=== PATIENT | male | born 1940 | race Caucasian/White ===

== ENCOUNTER → 2018-01-18 10:53 | Outpatient (CLI) | payer MEDICARE, SELFPAY ==
[2018-01-18 11:33] VITALS: PULSE 74; PULSE 78; PULSE 83; PULSE 89; PULSE 90; PULSE 93; PULSE 95; O2SAT 85; O2SAT 91; O2SAT 93; O2SAT 94; O2SAT 95; O2SAT 96; O2SAT 98
--- NOTE | 2018-01-18 11:36 | CPS ---
Patient came in on 3 lpm pulse dose from home. Patient's SpO2 88% on room air. Placed patient back on 3 lpm pulse dose for testing. By the 2nd minute SpO2 85%, changed patient to 3 lpm continuous flow on our tank. Patient walked the rest of the test on 3 lpm continuous flow with out desaturations less than 90% but was just as short of breath by the end of the test.
--- NOTE | 2018-01-18 16:13 | WT_ITS ---
PSN 6 Minute Walk Test - 6 Minute Walk Test 6 Minute Walk Test: 6 Minute Walk Test PSN:6-Minute Walk Test Start: 01/18/18 11: 32 Freq: Status: Active Protocol: [id number] Document 01/18/18 11:33 KULWANT (Rec: 01/18/18 11:47 KULWANT [id number]) 6 Minute Walk Test Date Performed 01/18/18 Time Performed 11:00 Height 5 ft 9 in Weight: 81.647 kg Weight in Pounds 180.[address]: Fredo Dyson Assistive device used: None Pre-test Oxygen Flow Rate (L/min) (L/min) 3 Oxygen Delivery Method Nasal Cannula Pulse Ox (%) 94 Pulse Rate (60-100 beats/min) 74 Dyspnea Leonie Scale (0-10) 0 Exertion Leonie Scale (6-20) 6 1st minute Oxygen Flow Rate (L/min) (L/min) 3 Oxygen Delivery Method Nasal Cannula Pulse Ox (%) 91 Pulse Rate (60-100 beats/min) 90 2nd minute Oxygen Flow Rate (L/min) (L/min) 3 Oxygen Delivery Method Nasal Cannula Pulse Ox (%) 85 Pulse Rate (60-100 beats/min) 95 Dyspnea Leonie Scale (0-10) 4 3rd minute Oxygen Flow Rate (L/min) (L/min) 3 Oxygen Delivery Method Nasal Cannula Pulse Ox (%) 96 Pulse Rate (60-100 beats/min) 83 4th minute Oxygen Flow Rate (L/min) (L/min) 3 Oxygen Delivery Method Nasal Cannula Pulse Ox (%) 94 Pulse Rate (60-100 beats/min) 89 5th minute Oxygen Flow Rate (L/min) (L/min) 3 Oxygen Delivery Method Nasal Cannula Pulse Ox (%) 93 Pulse Rate (60-100 beats/min) 89 Number of Rests Taken 1 6th minute Oxygen Flow Rate (L/min) (L/min) 3 Oxygen Delivery Method Nasal Cannula Pulse Ox (%) 95 Pulse Rate (60-100 beats/min) 93 Dyspnea Leonie Scale (0-10) 4 Exertion Leonie Scale (6-20) 14 Post-test Oxygen Flow Rate (L/min) (L/min) 3 Oxygen Delivery Method Nasal Cannula Pulse Ox (%) 98 Pulse Rate (60-100 beats/min) 78 Full Laps Walked 10 Partial Lap, Number of Tiles Walked 0 Total Distance Walked (ft) 590 01/18/18 11:36 Cardiopulmonary Services by Iram Wilde Patient came in on 3 lpm pulse dose from home. Patient's SpO2 88% on room air. Placed patient back on 3 lpm pulse dose for testing. By the 2nd minute SpO2 85% , changed patient to 3 lpm continuous flow on our tank. Patient walked the rest of the test on 3 lpm continuous flow with out desaturations less than 90% but was just as short of breath by the end of the test. Initialized on 01/18/18 11:36 - END OF NOTE - Interpretation Interpretation: The patient was noted to be 88% on room air. The patient was then placed on 3 L pulse dose nasal cannula oxygen and saturations improved to 94%. The patient then ambulated for 2 minutes prior to desaturating to 85%. Patient was placed on 3 L/min continuous oxygen and saturations improved to 95%. The patient did take one break, but traveled a total of 590 feet over the course of 6 minutes. These findings are consistent with a respiratory limitation exercise tolerance. - Recommendations Recommendations: Patient requires 3 L pulse dose at rest, but should be using 3 L continuous flow with any exertion.
== END ==
PROVIDERS: Family Provider Physician Assistant; PCP Physician Assistant; Visit Provider Internal Medicine Critical Care Medicine
DX: J44.9 Chronic obstructive pulmonary disease, unspecified (principal); J96.11 Chronic respiratory failure with hypoxia; F17.200 Nicotine dependence, unspecified, uncomplicated
CPT/HCPCS: 94618

== ENCOUNTER → 2018-02-02 09:54 | Outpatient (CLI) | payer MEDICARE, SELFPAY ==
--- NOTE | 2018-02-02 12:02 | PFTCOMP_ITS ---
COMPLETE PULMONARY FUNCTION TEST INTERPRETATION Brief HPI: Patient is a 77 year old male, currently under the care of Dr. Dyson, who presents to [facility] for complete pulmonary function tests secondary to diagnosis of COPD. Respiratory therapist reports good effort and reproducible results. Respiratory therapist was concerned the patient was in an acute exacerbation. Interpretation: Forced expiration spirometry shows a very severe large airways obstructive ventilatory defect with an FEV1 of 32% predicted. There is no significant bronchodilator response by strict ATS criteria. Spirograms are of good quality and plateau slowly, indicating slowly emptying areas of the lungs. The respiratory flow volume loop shows decreased expiratory flow rates at all lung volumes consistent with airway obstruction. Lung volumes by body plethysmography show an elevated total lung capacity at 7.29 L, 126% predicted. FRC and RV are elevated out of proportion. Lung volume measurements are consistent with hyperinflation and air-trapping. Diffusion capacity by carbon monoxide is decreased at 38% predicted. The airway resistance is elevated. No previous pulmonary function tests were available for review. Impression: Irreversible very severe large airways obstructive ventilatory defect resulting in air trapping with hyperinflation and a symmetric reduction diffusing capacity , consistent with the diagnosis of advanced COPD
== END ==
PROVIDERS: Family Provider Physician Assistant; PCP Physician Assistant; Visit Provider Internal Medicine Critical Care Medicine
DX: J44.9 Chronic obstructive pulmonary disease, unspecified (principal); J96.11 Chronic respiratory failure with hypoxia; F17.200 Nicotine dependence, unspecified, uncomplicated
CPT/HCPCS: 94060; 94726; 94729

== ENCOUNTER → 2018-05-11 12:40 | Outpatient (CLI) | payer MEDICARE, SELFPAY ==
--- NOTE | 2018-05-11 12:42 | CT_ITS ---
STUDY: CT CHEST WITHOUT CONTRAST REASON FOR EXAM: Male, 78 years old. Bronchiectasis RADIATION DOSAGE (If Supplied By Facility): CTDIvol = ( 12.00 ) mGy, DLP = ( 381.93 ) mGycm TECHNIQUE: Transaxial imaging was performed without the administration of intravenous contrast material. Individualized dose optimization techniques were used for this CT. COMPARISON: None. FINDINGS: : TRACHEA, THYROID, ESOPHAGUS: No tracheomalacia,stricture or wall thickening. Thyroid and esophagus are normal CARDIOVASCULAR SYSTEM:The thoracic aorta is normal with no aneurysm, dissection or developmental anomalies. The pulmonary trunk and the left and right pulmonary arteries and their lobar and segmental branches do not show any abnormal and persistent filling defects in them. There is therefore no evidence of pulmonary embolism. The heart is normal. There are no venous anomalies ROHAN AND LYMPH NODES: No hilar masses and no mediastinal, hilar, axillary or supraclavicular adenopathy LUNGS, LOW-ATTENUATION: There is a mixture of paraseptal and centrilobular emphysematous changes LUNGS, HIGH ATTENUATION: No nodules/masses, ground glass opacities/consolidations or increased interstitial markings. 6 nodules in the right lung base and 4 in the left lung base. The largest is 1.8 cm in diameter evidence of scarring in the right upper lobe and both lower LUNGS, MOSAIC/CRAZY PAVING: Not evident PLEURA AND CHEST WALL: No plural effusions, pneumothoraces,rib fractures or any osteolytic/osteoblastic changes . There are calcified pleural plaques bilaterally The soft tissue chest wall including the breasts are normal UPPER ABDOMEN: Unremarkable . CT/Chest without Contrast IMPRESSION: Bilateral calcified pleural plaque. Bilateral areas of scarring and fibrosis in the lung bases. Bilateral nodular densities. The constellation of these findings suggest either asbestosis or asbestos exposure Electronically Signed: Leeroy Buchanan, at 7:10 EDT Tel , Service support ,
== END ==
PROVIDERS: Family Provider Physician Assistant; PCP Physician Assistant; Visit Provider Nurse Practitioner Acute Care
DX: J47.9 Bronchiectasis, uncomplicated (principal)
CPT/HCPCS: 71250

== ENCOUNTER → 2018-05-25 11:47 | Outpatient (CLI) | payer MEDICARE, SELFPAY | PROVIDERS: Family Provider Physician Assistant; PCP Physician Assistant; Visit Provider Nurse Practitioner Acute Care | DX: J47.9 Bronchiectasis, uncomplicated (principal) | CPT/HCPCS: 71046 ==

== ENCOUNTER → 2018-06-02 09:09 | Outpatient (CLI) | payer MEDICARE, SELFPAY | PROVIDERS: Family Provider Physician Assistant; PCP Physician Assistant; Visit Provider Specialist | DX: T84.031A Mechanical loosening of internal left hip prosthetic joint, initial encounter (principal) | CPT/HCPCS: 20610; 77002; 87015; 87070; 87075; 87101; 87116; 87205; 87206; Q9967 ==

== ENCOUNTER 2018-06-04 12:12 | Emergency (ER) | payer MEDICARE, SELFPAY ==
[2018-06-04] VITALS (9 sets, daily range): BP systolic 131–186; BP diastolic 73–84; PULSE 73–79; RESP 14–25; TEMP 36.7; O2SAT 93–96; BMI 25.9
[2018-06-04 12:47] LABS: Absolute Lymphocyte Count 1.13 X10^3/ul (0.83-4.51); Basophil# 0.03 X10^3/uL; Basophil% 0.2 % (0-1); Eosinophil# 0.22 X10^3/uL; Eosinophils% 1.3 % (0-5); Hematocrit 43.9 % (40-54); Hemoglobin 14.4 g/dl (13.0-16.5); Lymphocyte # 1.13 X10^3/ul (4.0); Lymphocyte % 6.9 % (19-41); Mean Corp Hgb Conc 32.8 g/gl (32-36); Mean Corpuscular Hgb 29.6 pg (27.0-32.0); Mean Corpuscular Volume 90.3 fL (80-94); Mean Platelet Vol. 9.4 fl (6.2-12.0); Monocyte# 0.85 X10^3/uL; Monocyte% 5.2 % (0-10); Neutrophil # 13.97 X10^3/uL (2.7-7.7); Neutrophil % 85.4 % (47-70); Platelet Count 278 K/mm3 (150-450); RBC Distribution Width CV 14.2 % (11.6-14.6); RBC Distribution Width SD 46.1 fl (35.1-43.9); Red Blood Count 4.86 M/mm3 (4.6-6.2); White Blood Count 16.4 K/mm3 (4.4-11.0)
--- NOTE | 2018-06-04 12:48 | ED.DCSUM_ITS ---
- ER Visit Summary Date of Service: 06/04/18 Chief Complaint: Shortness of breath History of Present Illness: The patient is a 78 M history of COPD and hypertension. No prior DVT or PE. No risk factors. No hemoptysis. No pleuritic chest pain. Patient states for the last week while it has been hot outside he has had increasing shortness of breath. He is normally on 3 L nasal cannula O2 at home he increase that before. Said his shortness of breath is fine while asleep and is worse when he is up and around during the day. He describes the chest heaviness that has been constant now for several days. No cardiac history. No recent travel, surgery or mobilization. No leg pain or swelling. No hemoptysis. This is similar to his prior COPD flare ups. Physical Examination: Older male vital signs are stable. On 4 L he is 96% he is normally on 3 L. H EENT exam unremarkable neck nontender. Lungs coarse breath sounds throughout. Inspiratory wheezing. Prolonged expiratory phase. Heart regular rhythm no murmur rate about 70. Abdomen soft nontender normal bowel sounds no peritoneal signs. Moving all 4 extremities. Calves nontender without edema or cords. Neurologically is awake and alert. No focal motor deficits. Test Results: Chest x-ray chronic changes consistent with COPD no acute process. Read both by myself the radiologist. EKG sinus rhythm rate is 70 no acute abnormality. CBC shows a 16,000 white count but is currently on his own. Hemoglobin 14. Electrolytes unremarkable normal gap and creatinine. Troponin normal. Emergency Department Course and Treatment: Treated with multiple aerosols and IV Solu-Medrol. Treatment Plan: Repeat exam patient is doing better. He and I discussed inpatient versus outpatient. He much preferred to be discharged to home. He will be continued on prednisone for another week. Continue his aerosols and follow-up with his accounting recruiter next week. Disposition: Charge Impression: Acute exacerbation COPD This note was generated with [employer] dictation software. It may contain incorrect words, spelling, and punctuation that were not noted in review of the chart prior to signing ED Disposition - Plan for ED Patient: Chief Complaint: Shortness of Breath Referrals: Annabella Munoz PA [Primary Care Provider] -
[2018-06-04 12:52] LABS: POSITIVE COUNT NO; POSITIVE DIFFERENTIAL NO; POSITIVE MORPHOLOGY NO
[2018-06-04] MEDS: Albuterol 2.5 MG/3 ML VIAL.NEB. INHALATION ×2 (12:52→12:53)
[2018-06-04] MEDS: Ipratropium/Albuterol Sulfate 3 ML AMPUL.NEB INHALATION (12:52)
[2018-06-04] MEDS: MethylPREDNISolone 125 MG/2 ML Vial IV (12:56)
[2018-06-04 13:00] LABS: Anion Gap 8 (5-15); BUN 22 mg/dL (7-18); BUN/Creat Ratio 20.4 RATIO (10-20); Calcium,Total 8.8 mg/dL (8.5-10.1); Chloride 102 mmol/L (98-107); Creatinine, Serum 1.08 mg/dL (0.70-1.30); EST Glomerular Filtration Rate 71 mL/min (>60); Est Glom Filt Rate - Afr Amer 86 mL/min (>60); Estimated Creatinine Clearance 58.19 ml/min; Glucose 112 mg/dL (74-106); Potassium 4.2 mmol/L (3.5-5.1); Sodium Level 141 mmol/L (136-145)
--- NOTE | 2018-06-04 15:16 | ED.DEP ---
ED Disposition - Plan for ED Patient: Disposition: Home or Assisted Living Chief Complaint: Shortness of Breath Instructions: ED COPD Flare Prescriptions: Prednisone [Deltasone] 40 mg PO DAILY 7 Days tab Referrals: Annabella Munoz PA [Primary Care Provider] - Additional Instructions: Continue daily prednisone. Continue daily aerosols. Follow-up with your tray delivery aide next week. Return to ER feeling worse.
--- NOTE | 2018-06-04 15:19 | DCINST.ED_ITS ---
ED Disposition - Plan for ED Patient: Disposition: Home or Assisted Living Chief Complaint: Shortness of Breath Instructions: ED COPD Flare Prescriptions: Prednisone [Deltasone] 40 mg PO DAILY 7 Days tab Referrals: Annabella Munoz PA [Primary Care Provider] - Additional Instructions: Continue daily prednisone. Continue daily aerosols. Follow-up with your business planning analyst next week. Return to ER feeling worse.
--- NOTE | 2018-06-04 15:38 | ED.RN ---
pt given written and verbal discharge instructions and home going prescriptions. pt and spouse verbalizes understanding of instructions. iv d/c and covered with 2x2 gauze dressing and paper tape, pressure applied to site with pt being on blood thinner. this rn assisted pt n dressing and placed in wheelchair. pt wheeled to family vehicle in wheelchair.
== END 2018-06-04 15:38 | disposition home or self-care (01) ==
PROVIDERS: Emergency Provider Emergency Medicine; Family Provider Physician Assistant; PCP Physician Assistant
DX: J44.1 Chronic obstructive pulmonary disease with (acute) exacerbation (principal); I10 Essential (primary) hypertension; Z72.0 Tobacco use
CPT/HCPCS: 71045; 80048; 84484; 85025; 93005; 94640; 96374; 99285; A4216

== ENCOUNTER → 2018-06-25 14:10 | Outpatient (CLI) | payer MEDICARE, SELFPAY ==
--- NOTE | 2018-06-25 14:12 | ECHOD_ITS ---
Reason For Study: dyspnea/SOB Procedure This was a 2D Doppler, Color Flow transthoracic echocardiogram. The study was technically difficult. Due to COPD, poor parasternal accoutic windows. Exam performed in department. Left Ventricle Normal LV size. Left ventricular systolic function is normal. The estimated ejection fraction is 55 %. Stage 1 diastolic dysfunction. No regional wall motion abnormalities noted. Right Ventricle Normal RV size. Normal systolic function. Atria Normal left atrium. Normal right atrium. Mitral Valve Normal mitral valve. Mild (1+) eccentric mitral valve insufficiency. Tricuspid Valve Normal tricuspid valve. Mild (1+) tricuspid valve insufficiency. Pulmonary artery systolic pressure is 35 mmHg. Aortic Valve Normal aortic valve. Trisinus/trileaflet aortic valve. Pulmonic Valve The pulmonic valve is not well visualized. Great Vessels Normal aortic root. The pulmonary artery is normal size. Normal inferior vena cava. Pericardium/Pleural No pericardial effusion. MMode/2D Measurements & Calculations LVIDd: 4.9 cm IVSd: 0.88 cm Ao root diam: 3.7 cm LVIDs: 3.7 cm LVPWd: 0.92 cm LA dimension: 3.5 cm RVDd: 3.6 cm FS: 23.7 % LAV(MOD-bp): 59.9 ml LA A4 area: 19.1 cm2 RA A4 area: 15.8 cm2 LAV(MOD-bp) Indexed: 31.2 ml/m2 LAV(MOD-sp2): 61.0 ml LAV(MOD-sp4): 52.9 ml Doppler Measurements & Calculations MV E max philip: 57.3 cm/sec Lat Peak E' Philip: 7.1 cm/sec Med Peak E' Philip: 6.5 cm/sec MV A max philip: 81.2 cm/sec E/E' lat: 8.1 E/E' med: 8.9 MV E/A: 0.71 Ao V2 max: 122.2 cm/sec LV V1 max: 75.3 cm/sec PA V2 max: 83.4 cm/sec Ao max P.0 mmHg LV V1 max P.3 mmHg PI end-d philip: 131.6 cm/sec TR max philip: 282.1 cm/sec TR max P.8 mmHg Interpretation Summary Normal LV size. Left ventricular systolic function is normal. The estimated ejection fraction is 55 %. Stage 1 diastolic dysfunction. Mild (1+) eccentric mitral valve insufficiency. The study was technically difficult. The study was technically limited. Ordering Physician: Wendie Broderick Referring Physician: Wendie Broderick Performed By: Lynda Collins, MANDOCS, RVT
== END ==
PROVIDERS: Family Provider Physician Assistant; PCP Physician Assistant; Visit Provider Nurse Practitioner Acute Care
DX: R06.00 Dyspnea, unspecified (principal)
CPT/HCPCS: 93306

== ENCOUNTER → 2018-08-23 08:21 | Outpatient (CLI) | payer MEDICARE, SELFPAY ==
--- NOTE | 2018-08-23 05:51 | PET_ITS ---
EXAMINATION: FDG PET CT INDICATIONS: A 78-year-old male with reported history of pulmonary nodularity. COMPARISON EXAMINATION: CT of the chest report dated 05/11/18. INDEX LESION SIZE SUV INTERPRETATION Left lower hemithorax, left lower lobe 1.6 Quantitative criteria for viable neoplasm are not fulfilled, sequential radiologic investigation recommended NON-INDEX LESION SIZE SUV INTERPRETATION Left proximal clavicle 3.0 May represent previous trauma-fracture, correlation with plain film radiography recommended Left scapula 1.4 Quantitative criteria for viable neoplasm are not fulfilled TECHNIQUE: Following the intravenous administration of 16.37 mCi of F-18 deoxyglucose via the right antecubital fossa, multiplanar image acquisitions of the neck, chest, abdomen and pelvis to level of mid thigh, obtained at one hour post radiopharmaceutical administration contemporaneously interpreted with the current CT of the neck, chest, abdomen and pelvis to level of mid thigh, dated 08/23/[address] of the chest report dated 05/11/18 reveal: SERUM GLUCOSE LEVEL: 84 mg/dl. HEIGHT: 68 inches. WEIGHT: 173 lbs. FINDINGS: 1. Mild increased glucose concentration is defined in the left lower posterior lung field, left lower lobe, heterogeneous in presentation generating a calculated maximum standard uptake value of 1.6. 2. Normal physiologic distribution of the radiopharmaceutical is apparent in the hepatic (2.9) and splenic parenchyma, both renal units, bladder and visualized intestinal tract. There is uniform distribution of the radiopharmaceutical concentration defined in the visualized cerebellar hemispheres and cerebral cortical structures.? Diffuse intestinal tract activity is noted throughout all four quadrants of the abdominal-pelvic retroperitoneum, mesentery consistent with normal physiologic distribution of the radiopharmaceutical. Prominent glucose metabolism is defined in the periprosthetic soft tissues at the level of the right and left hip arthroplasties. There is an increase in glucose metabolism manifest in the periosseous soft tissues in the upper midline posterior chest wall and bilateral perioccipital soft tissue musculature most consistent with probable localized muscle tension artifact. Mild increased FDG concentration is demonstrated in the left upper posterolateral chest wall contiguous to the left scapula rendering a calculated maximum standard uptake value of 1.4. Asymmetric increased glucose concentration appears evident in the cortical aspect of left proximal clavicle, which may represent previous trauma-fracture. The calculated standard uptake value is 3.0. Pertinent CT findings are as follows. CHEST: Emphysematous change is noted in the bilateral upper-lower lung zones. There are multiple calcified pleural plaques demonstrated in the right and left hemithorax without evidence of facilitated glucose metabolism. Additional parenchymal densities noted in the right and left hemithorax demonstrate no evidence of quantitatively significant increased glucose metabolism. Atherosclerotic calcification is defined in the thoracic aorta without evidence of dilatation, aneurysm formation. ABDOMEN AND PELVIS: Atherosclerotic calcification is defined in the abdominal aorta without evidence of dilatation, aneurysm formation. Abdominal-pelvic arterial calcification is observed. A fat-containing right inguinal hernia is noted. Bilateral inguinal soft tissue densities are non-glucose avid. The gallbladder appears surgically absent. Colonic diverticulosis is defined without evidence of diverticulitis. SKELETAL: Degenerative changes defined in the cervical, thoracic and lumbar spine demonstrate no evidence for glucose hypermetabolism. 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 PET/PET/CT Tumor Base -Thigh Init IMPRESSION: 1. NEGATIVE EXAMINATION. There is no definitive quantitative scintigraphic evidence of viable neoplasm. 2. Facilitated glucose concentration observed in the left lower posterior lung field, left lower lobe does not fulfill quantitative criteria for viable neoplasm. (Hess et al, Annals of Internal Medicine, 138:724, 2003). 3. Metabolic and/or anatomic stability may be ensured in the left hemithorax pulmonary parenchymal abnormality with repeat FDG PET study and/or CT of the thorax in three months. (Xiu, Journal of Nuclear Medicine 45:88, P2004. Nicko, Seminars in Thoracic and Cardiovascular Surgery 14:292, 2002). 4. Enhanced glucose concentration visualized in the left scapula does not fulfill quantitative criteria for viable osseous neoplasm. (Nolvia et al, Clinical Nuclear Medicine 29:161, 2004). 5. Increased FDG uptake noted in the left proximal clavicle may represent previous trauma-fracture. Plain film radiography correlation may be of benefit for further evaluation. Electronic Signature Luis Vasquez D.O. Electronically Signed: Luis Vasquez DO at 23:28 EST Tel , Service support ,
== END ==
PROVIDERS: Family Provider Physician Assistant; PCP Physician Assistant; Referring Provider Internal Medicine Critical Care Medicine; Visit Provider Internal Medicine Critical Care Medicine
DX: R91.1 Solitary pulmonary nodule (principal)
CPT/HCPCS: 78815; A9552

== ENCOUNTER → 2018-11-30 14:33 | Outpatient (CLI) | payer MEDICARE, SELFPAY ==
[2018-09-13 10:39] VITALS: BMI 25.5
--- NOTE | 2018-11-30 14:38 | RAD_ITS ---
STUDY: X-RAY - RIGHT HAND REASON FOR EXAM: Male, 78 years old. Inflammatory polyarthropathy. TECHNIQUE: 3 view(s) of the hand. COMPARISON: X-ray left hand. FINDINGS: There is generalized bone demineralization. There is severe degenerative arthrosis of the radial-navicular articulation. There is suggestion of nonunion of an old ulnar styloid fracture.. Normal distal radioulnar joint. 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 Contours of the lunate bone are not a well-defined and may be deformed or posteriorly subluxed. There appears to be proximal displacement of the capitate bone. There is severe degenerative arthrosis involving multiple articulations, Normal carpometacarpal articulation of the thumb. Normal second through fifth carpometacarpal joints. Normal metacarpi. There is degenerative arthrosis of the first metacarpophalangeal (MCP) joint, with medial subluxation.. There is degenerative arthrosis of the interphalangeal joint of the thumb with articular joint space narrowing. Normal proximal and distal phalanges of the thumb. There is degenerative arthrosis of the second and third metacarpophalangeal joints with anterior subluxation. Normal proximal and distal interphalangeal joints of the second through fifth fingers. Normal phalanges of the second through fifth fingers. The soft tissue structures are unremarkable. RAD/Hand Min 3 Views IMPRESSION: Degenerative joint disease of the hand and wrist, as described above. There is evidence for chronic post-traumatic changes in the wrist as well. Electronically Signed: Osiel Parikh MD at 3:32 EST , Service support ,
--- NOTE | 2018-11-30 14:38 | RAD_ITS ---
STUDY: X-RAY - LEFT HAND REASON FOR EXAM: Male, 78 years old. Inflammatory polyarthropathy. TECHNIQUE: 3 view(s) of the hand. COMPARISON: X-ray right hand. FINDINGS: There is joint space narrowing of the radiocarpal articulation consistent with degenerative arthrosis. Normal distal radioulnar joint. Normal visualized carpal bones. Severe degenerative arthrosis of the navicular-multangular joints. There is degenerative arthrosis of the carpometacarpal (CMC) articulation of the thumb. Normal second through fifth carpometacarpal joints. Normal metacarpi. There is severe degenerative arthrosis of the first metacarpophalangeal (MCP) joint, with posterior medial subluxation. There is degenerative arthrosis of the interphalangeal joint of the thumb with articular joint space narrowing. Normal proximal and distal phalanges of the thumb. There is degenerative arthrosis of the second and third metacarpophalangeal (MCP) joints, with anterior subluxations. Normal proximal and distal interphalangeal joints of the second through fifth fingers. Normal phalanges of the second through fifth fingers. The soft tissue structures are unremarkable. RAD/Hand Min 3 Views IMPRESSION: Degenerative changes, as above. Electronically Signed: Osiel Parikh MD at 3:11 EST , Service support ,
[2018-11-30 17:43] LABS: Absolute Neutrophil Count 10.1 X10^3/uL (2.0-7.7); Basophil# 0.04 X10^3/uL; Basophil% 0.3 % (0-1); Eosinophil# 0.15 X10^3/uL; Eosinophils% 1.1 % (0-5); Hematocrit 41.5 % (40-54); Hemoglobin 13.5 g/dl (13.0-16.5); Lymphocyte % 15.7 % (19-41); Mean Corp Hgb Conc 32.5 g/gl (32-36); Mean Corpuscular Hgb 30.1 pg (27.0-32.0); Mean Corpuscular Volume 92.6 fL (80-94); Mean Platelet Vol. 9.9 fl (6.2-12.0); Monocyte# 0.89 X10^3/uL; Monocyte% 6.7 % (0-10); Neutrophil # 10.09 X10^3/uL (2.7-7.7); Neutrophil % 75.4 % (47-70); POSITIVE COUNT NO; POSITIVE DIFFERENTIAL NO; POSITIVE MORPHOLOGY NO; Platelet Count 272 K/mm3 (150-450); RBC Distribution Width CV 14.3 % (11.6-14.6); RBC Distribution Width SD 47.3 fl (35.1-43.9); Red Blood Count 4.48 M/mm3 (4.6-6.2); White Blood Count 13.4 K/mm3 (4.4-11.0)
[2018-11-30 17:57] LABS: ALB/GLOB Ratio 0.9 RATIO (0.9-2.4); AST(SGOT) 32 U/L (15-37); Alanine Aminotransfer ALT/SGPT 72 U/L (16-61); Albumin, Serum 3.5 g/dL (3.2-5.0); Alkaline Phosphatase 118 U/L (45-117); Anion Gap 11 (5-15); BUN 19 mg/dL (7-18); BUN/Creat Ratio 19.5 RATIO (10-20); Calcium,Total 8.6 mg/dL (8.5-10.1); Chloride 104 mmol/L (98-107); Creatinine, Serum 0.97 mg/dL (0.70-1.30); EST Glomerular Filtration Rate 80 mL/min (>60); Est Glom Filt Rate - Afr Amer 96 mL/min (>60); Globulin 3.9 g/dL (2.2-4.2); Glucose 87 mg/dL (74-106); Protein, Total 7.4 g/dL (6.4-8.2); Rheumatoid Factor < 10.0 IU/mL (<15); Sodium Level 143 mmol/L (136-145)
[2018-11-30 18:19] LABS: Erythrocyte Sedimentation Rate 21 mm/hr (0-20)
[2018-12-03 08:12] LABS: CCP IgG Antibodies < 1 units (0-19); HEPATITIS B SURFACE AG Negative (Negative); Hep B Surface Antibodies Non Reactive (.); Hep C Antibodies <0.1 s/co ratio (0.0-0.9)
[2018-12-03 08:21] LABS: ANTINUCLEAR ANTIBODIES DIRECT Negative (Negative)
== END ==
PROVIDERS: Family Provider Physician Assistant; PCP Physician Assistant; Referring Provider Internal Medicine Rheumatology; Visit Provider Internal Medicine Rheumatology
DX: M06.4 Inflammatory polyarthropathy (principal); M16.0 Bilateral primary osteoarthritis of hip; M21.40 Flat foot [pes planus] (acquired), unspecified foot; J44.9 Chronic obstructive pulmonary disease, unspecified
CPT/HCPCS: 36415; 73130; 80053; 85025; 85652; 86038; 86140; 86200; 86431; 86706; 86803; 87340

== ENCOUNTER → 2020-07-27 13:28 | Outpatient (CLI) | payer MEDICARE, SELFPAY ==
[2020-07-19 10:59] VITALS: BMI 22.1
--- NOTE | 2020-07-27 13:30 | CT_ITS ---
STUDY: CT CHEST WITHOUT CONTRAST REASON FOR EXAM: Male, 80 years old. Nodule follow-up RADIATION DOSAGE (If Supplied By Facility): CTDIvol = ( 8.20 ) mGy, DLP = ( 282.55 ) mGycm TECHNIQUE: Transaxial imaging was performed without the administration of intravenous contrast material. Individualized dose optimization techniques were used for this CT. COMPARISON: Report from August 23 2018, no actual images available for comparison in the electronic medical system for review FINDINGS: Prior imaging is not available for proper comparison performance. When prior imaging becomes available please load into the computer system and an addendum can be issued. Lungs are severely emphysematous. There are scattered parenchymal pleural and fissural scars and granulomata and partially and fully calcified pleural plaques and scars. There is mild to moderate cystic bullous basilar predominant change. There is bilateral chronic atelectatic fibrotic change in the bases. Central airways are patent with chronic bronchitis changes with minimal traction bronchiectasis in the bases. Mediastinal contents are normal. Aorta and pulmonary artery are normal. Coronary arteries are moderately diseased. Cardiac chambers are normal in size and shape. Pericardium is normal. Limited upper abdominal images are unremarkable. Osseous structures are intact. CT/Chest without Contrast IMPRESSION: 1. Unable to perform follow-up, no direct comparison available. 2. Severe emphysema, presumed prior asbestos exposure related scars. 3. Moderate coronary artery disease. Electronically Signed: Ky Damon, at 21:39 EDT Tel , Service support ,
== END ==
PROVIDERS: PCP Physician Assistant; Referring Provider Internal Medicine Critical Care Medicine; Visit Provider Internal Medicine Critical Care Medicine
DX: R91.8 Other nonspecific abnormal finding of lung field (principal)
CPT/HCPCS: 71250

== ENCOUNTER → 2021-02-06 12:16 | Outpatient (CLI) | payer MEDICARE, SELFPAY ==
[2021-01-16 11:01] VITALS: BMI 20.9
[2021-02-06 12:30] VITALS: PULSE 80; PULSE 81; PULSE 84; PULSE 85; PULSE 88; PULSE 91; PULSE 94; O2SAT 88; O2SAT 89; O2SAT 90; O2SAT 91; O2SAT 97
--- NOTE | 2021-02-06 12:46 | CPS ---
Patient currently wears 3L of oxygen at home. On room air patient's sat's were 97%, therefore the test was initiated on room air. At the one minute emily patients sat's dropped to 86%, therefore oxygen was increased to 2L. After given some time to recover patients sat's increased to 90%. Patients sat's dropped again to 88% at the 4 minute emily, and oxygen was increased to 3L. Sat's recovered to 90% and were maintained above 90% for the remainder of the test.
--- NOTE | 2021-02-07 09:52 | PCM.PSN.6M ---
PSN 6 Minute Walk Test 6 Minute Walk Test 6 Minute Walk Test: 6 Minute Walk Test PSN:6-Minute Walk Test Start: 02/06/21 12:42 Freq: Status: Active Protocol: [id number] Document 02/06/21 12:30 RONNI (Rec: 02/06/21 12:49 [id number]) 6 Minute Walk Test Date Performed 02/06/21 Time Performed 12:30 Height 5 ft 9 in Weight: 140 lb Weight in Pounds 140.[address]: Fredo Dyson FIO2 (% Oxygen) 32 Assistive device used: Walker Pre-test Oxygen Delivery Method Room Air Pulse Ox (%) 97 Pulse Rate (60-100 beats/min) 80 Dyspnea Leonie Scale (0-10) 0 Exertion Leonie Scale (6-20) 6 1st minute Oxygen Flow Rate (L/min) (L/min) 2 Oxygen Delivery Method Nasal Cannula Pulse Ox (%) 90 Pulse Rate (60-100 beats/min) 84 Number of Rests Taken 1 2nd minute Oxygen Flow Rate (L/min) (L/min) 2 Oxygen Delivery Method Nasal Cannula Pulse Ox (%) 91 Pulse Rate (60-100 beats/min) 85 3rd minute Oxygen Flow Rate (L/min) (L/min) 2 Oxygen Delivery Method Nasal Cannula Pulse Ox (%) 90 Pulse Rate (60-100 beats/min) 81 4th minute Oxygen Flow Rate (L/min) (L/min) 3 Oxygen Delivery Method Nasal Cannula Pulse Ox (%) 88 Pulse Rate (60-100 beats/min) 91 Number of Rests Taken 1 5th minute Oxygen Flow Rate (L/min) (L/min) 3 Oxygen Delivery Method Nasal Cannula Pulse Ox (%) 90 Pulse Rate (60-100 beats/min) 91 6th minute Oxygen Flow Rate (L/min) (L/min) 3 Oxygen Delivery Method Nasal Cannula Pulse Ox (%) 89 Pulse Rate (60-100 beats/min) 94 Post-test Oxygen Flow Rate (L/min) (L/min) 3 Oxygen Delivery Method Nasal Cannula Pulse Ox (%) 97 Pulse Rate (60-100 beats/min) 88 Dyspnea Leonie Scale (0-10) 4 Exertion Leonie Scale (6-20) 13 Full Laps Walked 8 Partial Lap, Number of Tiles Walked 0 Total Distance Walked (ft) 472 02/06/21 12:46 Cardiopulmonary Services by Ratna Rao Patient currently wears 3L of oxygen at home. On room air patient's sat's were 97%, therefore the test was initiated on room air. At the one minute emily patients sat's dropped to 86%, therefore oxygen was increased to 2L. After given some time to recover patients sat's increased to 90%. Patients sat's dropped again to 88% at the 4 minute emily, and oxygen was increased to 3L. Sat's recovered to 90% and were maintained above 90% for the remainder of the test. Initialized on 02/06/21 12:46 - END OF NOTE Interpretation Interpretation: The patient ambulated 472 feet over the course of 6 minutes beginning on room air with the use of a walker. Pretesting oxygen saturation was noted to be 97% on room air. With ambulation, the patient desaturated on several occasions requiring the initiation and subsequent escalation in flow rate of supplemental oxygen to 3 L/min to maintain appropriate saturations. Recommendations Recommendations: 3 L/min of supplemental oxygen should be utilized with exertion.
== END ==
PROVIDERS: PCP Internal Medicine; Referring Provider Internal Medicine Critical Care Medicine; Visit Provider Internal Medicine Critical Care Medicine
DX: J96.11 Chronic respiratory failure with hypoxia (principal)
CPT/HCPCS: 94618

== ENCOUNTER → 2021-08-02 13:40 | Outpatient (CLI) | payer MEDICARE, SELFPAY ==
--- NOTE | 2021-08-02 13:43 | CT_ITS ---
STUDY: LOW DOSE CT LUNG CANCER SCREENING REASON FOR EXAM: Male, 81 years old. Tobacco Dependency. Patient''s small half a pack per day for 65 years. RADIATION DOSAGE (If Supplied By Facility): CTDIvol = ( 2.01 ) mGy, DLP = ( 69.97 ) mGycm TECHNIQUE: No contrast was administered. Low dose technique was utilized (average mAS-38 and kVp 120). 1.25 mm axial source images with a slice interval of 1.25-mm were reconstructed in lung windows. 2.5 mm axial source images with a slice interval of 2.5-mm were reconstructed in lung windows. 5.0 mm axial source images with a slice interval of 5.0-mm were reconstructed in soft tissue windows. Nodule measured using lung windows on PACS and/or independent workstation with automated measurement of minimum and maximum diameter. Nodule measurement reported as average diameter rounded to the nearest whole number. Growth is defined as an increase ins size of greater than 1.5 mm. COMPARISON: Comparison is made with prior study dated 07/27/2020. NODULES: Stable calcified pleural plaques bilaterally. Emphysema: Diffuse emphysematous changes. Stable scarring in the peripheral lateral aspect of the right upper lobe. Stable bullous formation in the superior segment of the right lower lobe. Stable bullous formation in the posterior medial segment of the left lower lobe. Scarring and atelectasis at both lung bases. Endobronchial lesion: None Aorta: Aortic plaque calcification. Coronary arteries: Coronary artery calcification. Heart: Unremarkable. Pulmonary artery: Unremarkable Mediastinal nodes: Other chest and abdominal findings: CT/Low Dose CT Lung Screening IMPRESSION: Lung-RADS category 2 - Continue annual screening with LDCT in 12 months. IMPORTANT NOTES FOR USE: ACR Lung-RADS Version 1.1 Assessment Categories Release Date: 2018 Category: Coded 0-4 bases on nodule(s) with highest degree of suspicion. Negative screen is defined as categories 1 and 2; a positive screen is defined as categories 3 and 4. Category 3 and 4A nodules that are unchanged on interval CT should be coded as category 2, and individuals returned to screening in 12 months. Category 4X: Category 3 or 4 nodules with additional imaging findings that increase the suspicion of lung cancer, such as spiculation, GGN that doubles in size in 1 year, enlarged lymph notes, etc. Category Modifiers: S (significant finding unrelated to lung cancer) Electronically Signed: Earl Simmons MD at 15:08 EDT , Service support ,
== END ==
PROVIDERS: PCP Internal Medicine; Referring Provider Internal Medicine Critical Care Medicine; Visit Provider Internal Medicine Critical Care Medicine
DX: Z12.2 Encounter for screening for malignant neoplasm of respiratory organs (principal); F17.210 Nicotine dependence, cigarettes, uncomplicated
CPT/HCPCS: 71271

== ENCOUNTER 2021-08-21 15:44 | Emergency (ER) | payer MEDICARE, SELFPAY ==
[2021-08-21] VITALS (7 sets, daily range): BP systolic 108–142; BP diastolic 54–88; PULSE 72–83; RESP 13–20; TEMP 36.7; O2SAT 93–99; BMI 20.9
--- NOTE | 2021-08-21 17:57 | EDS_ITS ---
HPI History of Present Illness HPI Narrative: Patient presents with left hip pain that began while he was getting out of bed today. Patient states he felt something go out of place. Patient states he has been feeling some clicking and popping in his left hip where it feels like his hip is been going out of place but he has been able to get it back in place. Patient states today he was unable to do that. Patient describes his pain as sharp. Patient states it is worse with movement. Patient states it is worse with weightbearing and better with rest. Patient denies any paresthesias or weakness. Chief Complaint: Lower Extremity Injury Informant: patient Onset/Context/Timing Onset: Today Context: Sudden Onset Timing: Continuous Quality of Pain: Sharp Location: Left hip Worsened by: Weightbearing Relieved by: Rest Associated Symptoms Associated Symptoms: Negative for Parasthesia and Weakness [facility] Medical History (Updated 08/21/21 @ 21:[address] Alec Betancourt, DO) Abdominal pain Bronchitis Chronic hypoxemic respiratory failure Continuous tobacco abuse COPD (chronic obstructive pulmonary disease) COPD exacerbation Cough Depression Early satiety Gastritis Heart murmur HTN (hypertension) Hypertriglyceridemia Lower respiratory tract infection Mesenteric ischemia Peripheral arterial disease Pneumonia Right wrist pain Sepsis due to pneumonia Streptococcus pneumoniae Tubular adenoma Viral URI Home Medications aspirin 81 mg tablet,delayed release 81 mg PO QDAY 10/13/17 [History Last Taken Unknown] clopidogrel 75 mg tablet 75 mg PO QDAY 10/13/17 [History Last Taken Unknown] enalapril maleate 2.5 mg tablet 2.5 mg PO Q24H 10/13/17 [History Last Taken Unknown] atorvastatin 20 mg tablet 20 mg PO QDAY 01/05/18 [History Last Taken Unknown] fluticasone propionate 50 mcg/actuation nasal spray,suspension 2 spray INTRANASAL DAILY #16 g 04/26/18 [Rx Last Taken Unknown] hydroxychloroquine 200 mg tablet 200 mg PO DAILY 5 Days #0 tab 01/17/19 [History Last Taken Unknown] ipratropium 0.5 mg-albuterol 3 mg (2.5 mg base)/3 mL nebulization soln 3 ml INHALATION Q6H PRN #180 vial 01/18/20 [Rx Last Taken Unknown] cholecalciferol (vitamin D3) 125 mcg (5,000 unit) tablet 125 mcg PO DAILY 04/18/21 [History Last Taken Unknown] albuterol sulfate 90 mcg/actuation aerosol inhaler 2 puff INHALATION Q4H PRN #3 device 07/29/21 [Rx Last Taken Unknown] fluticasone propionate 230 mcg-salmeterol 21 mcg/actuation HFA inhaler 2 puff INHALATION BID #12 gm 07/29/21 [Rx Last Taken Unknown] tiotropium bromide 2.5 mcg/actuation mist for inhalation 2 puff INHALATION Q24H #4 g 07/29/21 [Rx Last Taken Unknown] Allergy/AdvReac Type Severity Reaction Status Date / Time No Known Allergies Allergy Verified 08/21/21 15:46 Family History (Reviewed 04/18/21 @ 11:12 by Wendie Broderick [employer] TEACHER, [employer]IGH [employer]CHO[employer] HOME [employer]CONOMICS TEACHER-C) Mother Diabetes Heart disease Hypertension Arthritis Parkinsons disease Surgical History H/O bilateral hip replacements Hx of vascular surgery Social History Smoking Status: Heavy Smoker (>10/day) second hand exposure: Yes alcohol intake: never substance use type: does not use caffeine: Yes what type of physical activity do you participate in: none ROS ROS ED Constitutional Constitutional ED: Denies chills or fever(s) Eyes Eyes: Denies blurry vision or change in vision ENT ENT ED: Denies rhinorrhea or sore throat Cardiovascular Cardiovascular: Denies chest pain or palpitations Respiratory/Chest Respiratory/Chest: Reports cough; Denies dyspnea Gastrointestinal Gastrointestinal: Denies nausea or vomiting Genitourinary Genitourinary ED: Denies dysuria or hematuria Musculoskeletal Musculoskeletal: Denies back pain or neck pain Integumentary Denies abscess or rash Neurologic Neurologic: Denies headache(s) or weakness Allergic/Immunologic Allergic/Immunologic ED: Denies mouth swelling or urticaria EXAM Physical Exam Const Vital Signs: 08/21/21 15:44 08/21/21 17:10 08/21/21 18:10 Temperature 98.1 F Temperature Source Temporal Pulse Rate 83 78 Pulse Rate [1 (Initial Baseline)] Pulse Rate [2] Pulse Rate [3] Respiratory Rate 18 13 Respiratory Rate [1 (Initial Baseline)] Respiratory Rate [2] Respiratory Rate [3] Blood Pressure 121/66 H 142/66 H Blood Pressure [1 (Initial Baseline)] Blood Pressure [2] Blood Pressure [3] Blood Pressure Mean 84 91 Pulse Ox 93 99 Oxygen Delivery Method Room Air Nasal Cannula Nasal Cannula Oxygen Delivery Method [1 (Initial Baseline)] Oxygen Delivery Method [2] Oxygen Delivery Method [3] Oxygen Flow Rate (L/min) 2 2 Fraction of Inspired Oxygen (FIO2) 100 08/21/21 18:19 08/21/21 19:19 08/21/21 19:25 Temperature Temperature Source Pulse Rate 78 74 Pulse Rate [1 (Initial Baseline)] 78 Pulse Rate [2] 74 Pulse Rate [3] 74 Respiratory Rate 16 16 Respiratory Rate [1 (Initial Baseline)] 16 Respiratory Rate [2] 14 Respiratory Rate [3] 20 H Blood Pressure 138/70 H 118/57 L Blood Pressure [1 (Initial Baseline)] 138/70 H Blood Pressure [2] 108/54 L Blood Pressure [3] 111/55 L Blood Pressure Mean Pulse Ox 99 98 98 Oxygen Delivery Method Nasal Cannula Room Air Room Air Oxygen Delivery Method [1 (Initial Baseline)] Room Air Oxygen Delivery Method [2] Room Air Oxygen Delivery Method [3] Room Air Oxygen Flow Rate (L/min) 2 Fraction of Inspired Oxygen (FIO2) 08/21/21 19:41 08/21/21 21:55 Temperature Temperature Source Pulse Rate 81 72 Pulse Rate [1 (Initial Baseline)] Pulse Rate [2] Pulse Rate [3] Respiratory Rate 18 18 Respiratory Rate [1 (Initial Baseline)] Respiratory Rate [2] Respiratory Rate [3] Blood Pressure 120/59 L 133/88 H Blood Pressure [1 (Initial Baseline)] Blood Pressure [2] Blood Pressure [3] Blood Pressure Mean 79 Pulse Ox 96 97 Oxygen Delivery Method Room Air Oxygen Delivery Method [1 (Initial Baseline)] Oxygen Delivery Method [2] Oxygen Delivery Method [3] Oxygen Flow Rate (L/min) Fraction of Inspired Oxygen (FIO2) Positive well nourished and well developed General Appearance ED: well developed HEENT Reports moist mucous membranes Neck supple and no JVD Resp normal respiratory effort and clear to auscultation bilaterally Cardio regular rate, regular rhythm and no murmurs GI normal to inspection, nondistended, normoactive bowel sounds and non-tender Palpation: soft Extremity Extremity Narrative: There is some tenderness over the left hip area. The left lower extremity is shortened and internally rotated. Range of motion was limited in all motion secondary to pain. Pedal pulses are equal bilaterally. Sensation was intact to light touch bilaterally in the lower extremities. There is no edema of the ankles. General Extremety ED: Negative for edema or tenderness General Extremity: Negative for edema Neuro oriented x3, CN's II-XII intact bilaterally and no sensory deficits noted Sensorium / Orientation: alert Motor Exam: strength 5/5 throughout Psych mental status grossly normal Skin no rashes or lesions noted MDM MDM MDM Narrative Medical decision making narrative: Outpatient x-rays were reviewed which showed a dislocation of the left hip prosthesis. I discussed the options of conscious sedation with the patient. Patient was advised that the risks and benefits of sedation. Patient was given the opportunity ask any further questions. He had none. Patient was agreeable to be sedated for reduction of the hip prosthesis. Verbal and written consent was obtained. Patient was placed on oxygen and continuous school bus monitor. Patient was placed on continuous pulse oximeter monitoring. Patient was given a dose of 80 mg of propofol. Patient was adequately sedated with this. The left hip prosthesis was reduced with longitudinal traction. Patient had no hypoxic episodes during continue sedation. Patient woke up and felt better. Knee immobilizer was placed. Repeat x-ray was obtained. There are 2 views. On my interpretation, there are some degenerative changes. There was good reduction of the dislocation. Radiologist also interpreted the x-ray and noted a left intertrochanteric fracture. I compared this to the x-ray that was sent in with the patient from the orthopedic office. It does not appear to be any different. There is no displacement. Patient was able to ambulate without any pain. I do not feel this is a clinically relevant fracture since he is able to ambulate and has a prosthesis and cerclage wires around the fracture to stabilize it. Patient will be discharged home. Patient was instructed to follow-up with his orthopedist in 3 to 5 days. Patient was instructed return if worse in any way. Patient understood and was agreeable with the plan. All questions were answered. Radiography Diagnostic Testing: Clinical Impression(s) from Imaging Studies Hip X-Ray 08/21/21 19:24 IMPRESSION: There is a left intertrochanteric fracture Electronically Signed: Tha Doyle MD at 20:13 EST , Service support , Discharge Plan Triage Chief Complaint: Lower Extremity Injury ED Provider: Alec Betancourt Dx/Rx/DC Orders Clinical Impression: Closed dislocation of left hip Instructions: ED Hip Replace Dislocation Reduc Prescriptions: No Action atorvastatin [Lipitor] 20 mg tablet 20 mg PO QDAY RF: 0 enalapril maleate 2.5 mg tablet 2.5 mg PO Q24H RF: 0 clopidogrel [Plavix] 75 mg tablet 75 mg PO QDAY RF: 0 aspirin [Adult Aspirin Regimen] 81 mg tablet,delayed release (DR/EC) 81 mg PO QDAY RF: 0 fluticasone propionate 50 mcg/actuation spray,suspension 2 spray INTRANASAL DAILY Qty: 16 RF: 3 hydroxychloroquine 200 mg tablet 200 mg PO DAILY 5 Days Qty: 0 RF: 0 ipratropium-albuterol 0.5 mg-3 mg(2.5 mg base)/3 mL solution for nebulization 3 ml INHALATION Q6H PRN (Reason: shortness of breath or wheezing) Qty: 180 RF: 6 cholecalciferol (vitamin D3) 125 mcg (5,000 unit) tablet 125 mcg PO DAILY RF: 0 albuterol sulfate [Ventolin HFA] 90 mcg/actuation HFA aerosol inhaler 2 puff INHALATION Q4H PRN (Reason: shortness of breath or wheezing) Qty: 3 RF: 3 Advair HFA 230-21 mcg/actuation HFA aerosol inhaler 2 puff INHALATION BID Qty: 12 RF: 6 Spiriva Respimat 2.5 mcg/actuation mist 2 puff INHALATION Q24H Qty: 4 RF: 6 Primary Care Provider: Evans Lujan Referrals: Evans Lujan MD [Primary Care Provider] - 3-5 Days Garth Mckeon DO [STAFF PHYSICIAN] - 3-5 Days Disposition Disposition: Home, Self Care Discharge Date/Time: 08/21/21 21:58
[2021-08-21] MEDS: 0.9% Normal Saline 1,000 ML 150 ML IV (18:23)
--- NOTE | 2021-08-21 19:24 | RAD_ITS ---
STUDY: X-RAY - PELVIS AND LEFT HIP REASON FOR EXAM: Male, 81 years old. History, Signs T Symptoms POST REDUCTION TECHNIQUE: XR Hip Unilateral with Pelvis when performed; 2-3 Views COMPARISON: None. FINDINGS: There is a non-specific bowel gas pattern. Normal visualized soft tissue structures. There are atherosclerotic vascular calcifications. Normal bilateral iliac wings, sacroiliac joints and visualized sacrum. Normal bilateral superior and inferior pubic rami. Normal pubic symphysis. Normal bilateral ischial tuberosities. Total left hip arthroplasty. Total right hip arthroplasty. There is a left intertrochanteric fracture. Cerclage wires around the left proximal femur. . RAD/Hip Min 2 Views (Portable) IMPRESSION: There is a left intertrochanteric fracture Electronically Signed: Tha Doyle MD at 20:13 EST , Service support ,
[2021-08-21] MEDS: Propofol 200 MG/20 ML Vial IV BOLUS (19:27)
== END 2021-08-21 21:58 | disposition home or self-care (01) ==
PROVIDERS: Emergency Provider Emergency Medicine; PCP Internal Medicine
DX: T84.021A Dislocation of internal left hip prosthesis, initial encounter (principal); X58.XXXA Exposure to other specified factors, initial encounter; Y92.9 Unspecified place or not applicable; Y99.9 Unspecified external cause status; F17.200 Nicotine dependence, unspecified, uncomplicated; Z79.51 Long term (current) use of inhaled steroids; Z79.82 Long term (current) use of aspirin; Z96.642 Presence of left artificial hip joint; J96.11 Chronic respiratory failure with hypoxia; I10 Essential (primary) hypertension
CPT/HCPCS: 27265; 73502; 96360; 96361; 99284; J7030; A4216

== ENCOUNTER → 2022-03-14 | Outpatient (CLI) | payer MEDICARE, SELFPAY ==
--- NOTE | 2022-03-14 13:42 | CT_ITS ---
STUDY: CTA OF THE ABDOMINAL AORTA AND BILATERAL LOWER EXTREMITIES REASON FOR EXAM: Male, 81 years old. ATHEROSCLEROSIS OF AORTA TECHNIQUE: Axial CT angiography multi-detector data acquisition was obtained following intravenous administration of 100mL Isovue-370 contrast. Axial images and MIP images were reconstructed from the axial data set. Post-processing of the angiographic images was performed, with multiplanar reformation and 3D reconstruction. MIPS images were obtained. Individualized dose optimization techniques were used for this CT. Radiation: CTDIvol = [7.82] mGy, DLP = [993.90] mGy-cm COMPARISON: May 11 2018 12:59pm ct chest. Descriptors of Narrowing: None (0%) Mild (< 50%) Moderate (50-70%) Severe (70-90%) Subtotal/Total Occlusion (90-100%) Non-Evaluable (technically non-diagnostic FINDINGS: Bilateral calcified pleural plaque. Bilateral areas of scarring and fibrosis in the lung bases. Bilateral nodular densities. The constellation of these findings suggest either asbestosis or asbestos exposure. There are new Lower lobe infiltrate suggesting pneumonia. The visualized portions of the heart are within normal limits. Normal liver. There is non-visualization of the gallbladder, which may be secondary to either contraction or a prior cholecystectomy. Normal spleen. Normal pancreas. Normal bilateral adrenal glands. Right lower quadrant tubular area of fluid is 14 mm. This may be a mesenteric cyst. It has a benign appearance. Bilateral renal hypodensities. These are too small to characterize. ACR White Paper guidelines (Geeta, et al. JACR 2018; 15(2):264-273) recommend abdominal MRI (preferred) or CT without and with intravenous contrast within 6-12 months. Total bilateral hip arthroplasty. Normal visualized stomach. Normal small intestine. Normal colon. There is non-visualization of the appendix. Normal inferior vena cava. Normal retroperitoneum. Old Compression deformity of L3. Normal urinary bladder. Normal abdominal wall. There are diffuse degenerative changes of the visualized lumbar spine. There is an unremarkable-appearing IVC. Abdominal aorta: There are calcifications of the abdominal aorta. This is consistent for atherosclerotic disease. There is no abdominal aortic aneurysm. Celiac and superior mesenteric arteries: There is severe diffuse narrowing. Inferior mesenteric artery: There is severe diffuse narrowing. Right renal artery(arteries): There is severe diffuse narrowing. Left renal artery(arteries): There is severe diffuse narrowing. Right common iliac artery: There is moderate diffuse narrowing. Right external iliac artery: There is moderate diffuse narrowing. Right internal iliac artery: There is severe diffuse narrowing. Left common iliac artery: There is moderate diffuse narrowing. Left external iliac artery: There is moderate diffuse narrowing. Left internal iliac artery: There is severe diffuse narrowing. RIGHT LOWER EXTREMITY Right common femoral artery: There is moderate diffuse narrowing. Right profundus femoris: No demonstrated narrowing. Right superficial femoral: Occluded Right popliteal artery: Occluded Right tibioperoneal trunk: Distal reconstitution into the trunk from collateral vessels. Right anterior tibial artery: There is moderate diffuse narrowing, with visualization of the vessel to the distal calf. Right posterior tibial artery: There is moderate diffuse narrowing, with visualization of the vessel to the distal calf. Right peroneal artery: There is moderate diffuse narrowing, with visualization of the vessel to the distal calf. LEFT LOWER EXTREMITY Left common femoral artery: Occluded Left profundus femoris: No demonstrated narrowing. Left superficial femoral: Occluded Left popliteal artery: Occluded Left tibioperoneal trunk: Distal reconstitution into the trunk from collateral vessels. Left anterior tibial artery: There is moderate diffuse narrowing, with visualization of the vessel to the distal calf. Left posterior tibial artery: There is moderate diffuse narrowing, with visualization of the vessel to the distal calf. Left peroneal artery: Multilevel severe stenosis of the artery. CT/CTA Abd w/Runoff W/WO Contrast IMPRESSION: (NOT LISTED IN ORDER OF SIGNIFICANCE) There are new Lower lobe infiltrate suggesting pneumonia. Celiac and superior mesenteric arteries: There is severe diffuse narrowing. Inferior mesenteric artery: There is severe diffuse narrowing. Right renal artery(arteries): There is severe diffuse narrowing. Left renal artery(arteries): There is severe diffuse narrowing. Right common iliac artery: There is moderate diffuse narrowing. Right external iliac artery: There is moderate diffuse narrowing. Right internal iliac artery: There is severe diffuse narrowing. Left common iliac artery: There is moderate diffuse narrowing. Left external iliac artery: There is moderate diffuse narrowing. Left internal iliac artery: There is severe diffuse narrowing. Bilateral renal hypodensities. These are too small to characterize. ACR White Paper guidelines (Herts, et al. JACR 2018; 15(2):264-273) recommend abdominal MRI (preferred) or CT without and with intravenous contrast within 6-12 months RIGHT LOWER EXTREMITY Right common femoral artery: There is moderate diffuse narrowing. Right superficial femoral: Occluded Right popliteal artery: Occluded Right tibioperoneal trunk: Distal reconstitution into the trunk from collateral vessels. Right anterior tibial artery: There is moderate diffuse narrowing, with visualization of the vessel to the distal calf. Right posterior tibial artery: There is moderate diffuse narrowing, with visualization of the vessel to the distal calf. Right peroneal artery: There is moderate diffuse narrowing, with visualization of the vessel to the distal calf. LEFT LOWER EXTREMITY Left common femoral artery: Occluded Left superficial femoral: Occluded Left popliteal artery: Occluded Left tibioperoneal trunk: Distal reconstitution into the trunk from collateral vessels. Left anterior tibial artery: There is moderate diffuse narrowing, with visualization of the vessel to the distal calf. Left posterior tibial artery: There is moderate diffuse narrowing, with visualization of the vessel to the distal calf. Left peroneal artery: Multilevel severe stenosis of the artery. Electronically Signed: Tha Doyle MD at 16:04 EDT ,
[2022-03-14 13:56] LABS: CREATININE FINGERSTICK < 0.9 mg/dL (0.70-1.30); EGFR FINGERSTICK > 60.0000 mL/min (>60)
== END | disposition home or self-care (01) ==
LOC: CT 13:38
PROVIDERS: PCP Internal Medicine; Referring Provider Surgery Vascular Surgery; Visit Provider Surgery Vascular Surgery
DX: I70.0 Atherosclerosis of aorta (principal); I77.1 Stricture of artery; I70.213 Atherosclerosis of native arteries of extremities with intermittent claudication, bilateral legs; Z99.81 Dependence on supplemental oxygen; E78.00 Pure hypercholesterolemia, unspecified; I10 Essential (primary) hypertension
CPT/HCPCS: 75635; Q9967; A4216

== ENCOUNTER → 2022-09-04 | Outpatient (CLI) | payer MEDICARE, SELFPAY ==
--- NOTE | 2022-09-04 10:40 | ART_ITS ---
Reason For Study: Athersclerosis Procedure A bilateral lower extremity continuous wave Doppler with analog waveform analysis and ankle brachial indexes. Left Segmental Pressures Left brachial= 125mmHg. Left posterior tibial artery = 43mmHg. Left dorsalis pedis artery = 78mmHg. Left digit = 71 mmHg. The left dorsalis pedis waveforms are monophasic. The left posterior tibial artery waveforms are monophasic. Right Segmental Pressures Right brachial= 117mmHg. Right posterior tibial artery = >254mmHg. Right dorsalis pedis artery = 120mmHg. Right digit = 42 mmHg. The right dorsalis pedis waveforms are biphasic. The right posterior tibial artery waveforms are biphasic. Indices The right ankle brachial index by the dorsalis pedis is 0.96. The right ankle brachial index by the posterior tibial artery is NC. The right digital-brachial index is 0.34. The left ankle brachial index by the dorsalis pedis is 0.62. The left ankle brachial index by the posterior tibial artery is 0.34. The left digital-brachial index is 0.33. VL/Ankle Brachial Index Interpretation Summary Right normal at rest with CRISTOFER 0.96. Left moderate occlussive disease and monoph asic flow with CRISTOFER 0.62. Ordering Physician: Jamey Gasca Referring Physician: Evans Lujan Performed By: Gisele Martin RVT
== END | disposition home or self-care (01) ==
LOC: CVS 10:39
PROVIDERS: PCP Internal Medicine; Visit Provider Surgery Vascular Surgery
DX: I70.0 Atherosclerosis of aorta (principal); I70.213 Atherosclerosis of native arteries of extremities with intermittent claudication, bilateral legs; I77.1 Stricture of artery; E78.00 Pure hypercholesterolemia, unspecified; I10 Essential (primary) hypertension; Z99.81 Dependence on supplemental oxygen
CPT/HCPCS: 93922

== ENCOUNTER 2023-09-07 17:22 | Inpatient (IN) | payer MEDICARE, SELFPAY ==
[2023-09-07] VITALS (9 sets, daily range): BP systolic 133–143; BP diastolic 56–82; PULSE 79–98; RESP 16–25; TEMP 37.7–38.8; O2SAT 91–95; BMI 22.8; BMI 22.3
--- NOTE | 2023-09-07 18:13 | EDS_ITS ---
HPI History of Present Illness Chief Complaint: Shortness of Breath Narrative Narrative: 83-year-old male past medical history of COPD, wears 3 L of oxygen per nasal cannula almost at all times, presents with increasing shortness of breath and dyspnea on exertion, fever, and body aches. States over the last few days he is felt more short of breath. He has a cough that sometimes produces green to yellow sputum. Since yesterday, has felt more ill with aches all over his body. He took hydrocodone and Tylenol without relief. He states that he has to stand on his tiptoes to feel like he is getting enough oxygen. He denies any history of CHF, his dyspnea is also worse with exertion. He presents because of the fever, and increasing shortness of breath. He also states he is having a lot of body aches as well. [facility] Medical History (Updated 09/07/23 @ 21:59 by Ahmet Nayak MD) Abdominal pain Bronchitis Chronic hypoxemic respiratory failure Continuous tobacco abuse COPD (chronic obstructive pulmonary disease) COPD exacerbation Cough Depression Early satiety Gastritis Heart murmur HTN (hypertension) Hypertriglyceridemia Lower respiratory tract infection Mesenteric ischemia Peripheral arterial disease Pneumonia Right wrist pain Sepsis due to pneumonia Streptococcus pneumoniae Tubular adenoma Viral URI Home Medications aspirin 81 mg tablet,delayed release (Adult Aspirin Regimen) 81 mg PO QDAY 10/13/17 [History Last Taken 09/07/23] clopidogrel 75 mg tablet (Plavix) 75 mg PO QDAY 10/13/17 [History Last Taken 09/07/23] enalapril maleate 2.5 mg tablet 2.5 mg PO Q24H 10/13/17 [History Last Taken 09/07/23] atorvastatin 20 mg tablet (Lipitor) 20 mg PO QDAY 01/05/18 [History Last Taken 09/07/23] fluticasone propionate 50 mcg/actuation nasal spray,suspension 2 spray intranasal DAILY #16 grams 04/26/18 [Rx Last Taken 09/07/23] hydroxychloroquine 200 mg tablet 200 mg PO DAILY 5 days #0 tabs 01/17/19 [History Last Taken 09/07/23] cholecalciferol (vitamin D3) 125 mcg (5,000 unit) tablet 125 mcg PO DAILY 04/18/21 [History Last Taken 09/07/23] guaifenesin 1,200 mg tablet, extended release 12 hr 1,200 mg PO Q12H #60 tabs 01/28/22 [Rx Last Taken 09/07/23] ipratropium 0.5 mg-albuterol 3 mg (2.5 mg base)/3 mL nebulization soln 3 ml inhalation Q6H PRN shortness of breath or wheezing #180 vials 01/28/22 [Rx Last Taken Unknown] fluticasone propionate 230 mcg-salmeterol 21 mcg/actuation HFA inhaler (Advair HFA) 2 puff inhalation BID #3 device 10/24/22 [Rx Last Taken 09/07/23] tiotropium bromide 2.5 mcg/actuation mist for inhalation (Spiriva Respimat) 2 puff inhalation Q24H #3 device 10/24/22 [Rx Last Taken Unknown] albuterol sulfate 90 mcg/actuation aerosol inhaler (Ventolin HFA) 2 puff inhalation Q4H PRN shortness of breath or wheezing #18 grams 02/10/23 [Rx Last Taken Unknown] Allergy/AdvReac Type Severity Reaction Status Date / Time No Known Allergies Allergy Verified 09/07/23 17:25 Family History Mother Diabetes Heart disease Hypertension Arthritis Parkinsons disease Surgical History H/O bilateral hip replacements Hx of vascular surgery Social History Smoking Status: Former smoker second hand exposure: Yes alcohol intake: never substance use type: does not use caffeine: Yes what type of physical activity do you participate in: none ROS ROS ED ROS Narrative Constitutional: Positive fever, no chills. HEENT: No sore throat. No neck pain. No loss of vision. No rhinorrhea. Cardiovascular: No chest pain. No palpitations. No pedal edema. Respiratory: Occasionally productive cough, positive dyspnea on exertion and shortness of breath. Abdominal: No abdominal pain. No nausea. Occasional posttussive emesis Genitourinary: No dysuria. No hematuria. Musculoskeletal: Multiple myalgias and arthralgias. Neurologic: No headaches. No dizziness. No lightheadedness. Skin: No rash. No change in color. Psychiatric: No depression. No anxiety. EXAM Physical Exam Narrative Exam Narrative: Temperature 100.3 to 100.4 ?F vital signs noted. Nontoxic-appearing. HEENT: Normocephalic. Atraumatic. PERRL, EOMI. Neck soft and supple. No point tenderness or step off. Cardiovascular: Regular rate and rhythm. No murmurs, rubs, or gallops appreciated. Respiratory: No tachypnea. Decreased breath sounds bilateral bases with occasional expiratory wheeze. Fair air movement. Gastrointestinal: Abdomen soft, nontender, with normoactive bowel sounds. No rebound or guarding. Neurological: Awake. Alert. Nonfocal, nonlateralizing. Skin: No rash. Normal color. No pallor. Musculoskeletal: No pedal edema. Full range of motion extremities. Const Vital Signs: 09/07/23 17:25 09/07/23 17:28 09/07/23 17:28 Temperature 100.4 F H 100.3 F H Temperature Source Oral Temporal Pulse Rate 91 79 Respiratory Rate 23 H 18 Respiratory Effort Short of Breath Labored Respiratory Depth Normal Respiratory Pattern Tachypnea Blood Pressure 142/56 H 143/82 H Blood Pressure Mean 84 102 Pulse Ox 91 95 Oxygen Delivery Method Nasal Cannula Nasal Cannula Nasal Cannula Oxygen Flow Rate (L/min) 3 3 3 09/07/23 18:23 09/07/23 18:10 09/07/23 18:28 Temperature 100.3 F H Temperature Source Temporal Pulse Rate 98 93 Respiratory Rate 20 H 25 H Respiratory Effort Respiratory Depth Respiratory Pattern Blood Pressure 138/62 H Blood Pressure Mean 87 Pulse Ox 95 95 Oxygen Delivery Method Nasal Cannula Nasal Cannula Oxygen Flow Rate (L/min) 3 3 09/07/23 20:44 Temperature 102 F H Temperature Source Oral Pulse Rate 85 Respiratory Rate 18 Respiratory Effort Respiratory Depth Respiratory Pattern Blood Pressure 139/71 H Blood Pressure Mean 93 Pulse Ox 95 Oxygen Delivery Method Nasal Cannula Oxygen Flow Rate (L/min) 3 MDM MDM MDM Narrative Medical decision making narrative: In the differential diagnosis is COVID versus influenza upper respiratory infection versus COPD exacerbation versus pneumonia. As his temperature is elevated, sepsis work-up will be pursued. He was administered Tylenol and DuoNeb aerosolized treatment. I do feel chest x-ray and laboratory work is indicated for sepsis work-up. EKG was obtained and interpreted by myself independently as normal sinus rhythm at 92 bpm without ectopy or acute ST changes. No STEMI. No significant change from EKG dated June 04, 2018. I reviewed his laboratory work and he has a normal white count of 6.8, hemoglobin stable 11.5, platelet count normal at 154. Initially, his INR came back elevated greater than 19.5. The patient does not take Coumadin. Feel this is probably more of a lab error so it was repeated and is normal at 1.2. I reviewed his CMP and he has a BUN of 19 with a normal creatinine. Sodium normal at 141, potassium normal at 3.9, chloride normal at 106. AST slightly elevated at 38 which I think is nonspecific. Lactic acid is normal at 1.5 as well. He is not really meeting any sirs criteria currently. His urinalysis is negative for infection with 0-5 WBCs. Respiratory swabs are negative for COVID and influenza. Chest x-ray interpreted by myself independently shows bleb disease but no evidence of gross consolidation. I reviewed the radiology report which comments on the blood disease and possibly a very small pneumothorax versus artifact. I do not feel that a chest tube is indicated given his bleb disease. They do state that it is difficult to distinguish this from bullous disease. I discussed the patient with Dr. Ayoub with hospitalist medicine for admission. He was given Tylenol for his fever, and while the wound may have temporarily lowered, it spiked to 102 degrees. I do feel that he requires admission. I discussed with him the chest x-ray findings and he would like a CT of the chest performed without contrast which she will check to see if it is bullous disease or if there is a pneumonia. Additionally, he requested that Zosyn be administered and RSV swab be obtained as well. He would like the patient to also have 125 mg of Solu-Medrol for COPD flare. He would like him admitted as an inpatient to the PCU. Disposition is admitted in stable condition. History & Record Review Discussion w/independent historian: Patient and Family Additional record(s) reviewed:: Prior ED visit and Prior labs Lab Data Attestation: I reviewed the patient's lab results. Labs: Laboratory Results - last 24 hr 09/07/23 09/07/23 09/07/23 18:20 19:30 20:30 WBC 6.3 RBC 3.85 L Hgb 11.5 L Hct 35.6 L MCV 92.5 MCH 29.9 MCHC 32.3 RDW Std Deviation 46.6 H RDW Coeff of Marques 13.6 Plt Count 154 MPV 9.4 Immature Gran % (Auto) 0.800 Neut % (Auto) 87.8 H Lymph % (Auto) 3.7 L Clinch % (Auto) 7.0 Eos % (Auto) 0.2 Baso % (Auto) 0.5 Absolute Neuts (auto) 5.5 Absolute Lymphs (auto) 0.23 L Nucleated RBC % 0 Differential Comment SEE COMMENT Platelet Estimate ADEQUATE RBC Morphology N CHROM Anisocytosis RARE Macrocytosis RARE PT > 120.0 H 15.2 H INR > 19.5 H* 1.2 APTT 31.3 Sodium 141 Potassium 3.9 Chloride 106 Carbon Dioxide 29.0 Anion Gap 6 BUN 19 H Creatinine 1.07 Estim Creat Clear Calc 50.62 Est GFR (MDRD) Af Amer 85 Est GFR (MDRD) Non-Af 70 BUN/Creatinine Ratio 17.8 Glucose 99 Lactic Acid 1.5 Calcium 8.7 Total Bilirubin 0.90 AST 38 H ALT 42 Alkaline Phosphatase 116 Total Protein 7.1 Albumin 3.5 Globulin 3.6 Albumin/Globulin Ratio 1.0 Urine Color Yellow Urine Clarity Sl. 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 Questionable small pneumothorax loculated at the right lung base/subpulmonic, difficult to distinguish from bullous disease on this single view. Electronically Signed: Breanna Vega MD at 19:13 EST , Management Discussion w/another healthcare provider: Hospitalist (Dr. Ayoub) Discharge Plan Dx/Rx/DC Orders Clinical Impression: COPD with acute exacerbation, Fever, SOB (shortness of breath), Lung blebs Disposition Disposition: Acute Care Hospital [facility]
[2023-09-07] MEDS: Ipratropium/Albuterol Sulfate 3 ML AMPUL.NEB INHALATION (18:22)
[2023-09-07 18:40] LABS: Absolute Lymphocyte Count 0.23 X10^3/uL (0.83-4.51); Absolute Neutrophil Count 5.5 X10^3/uL (2.0-7.7); Basophil# 0.03 X10^3/uL; Basophil% 0.5 % (0-1); Eosinophil# 0.01 X10^3/uL; Eosinophils% 0.2 % (0-5); Hematocrit 35.6 % (40-54); Hemoglobin 11.5 g/dL (13.0-16.5); Lymphocyte # 0.23 X10^3/ul (0.83-4.51); Lymphocyte % 3.7 % (19-41); Mean Corp Hgb Conc 32.3 g/dL (32-36); Mean Corpuscular Hgb 29.9 pg (27.0-32.0); Mean Corpuscular Volume 92.5 fL (80-94); Mean Platelet Vol. 9.4 fl (6.2-12.0); Monocyte# 0.44 X10^3/uL; NRBC Flagged by Analyzer 0 % (0-5); Neutrophil # 5.53 X10^3/uL (2.7-7.7); Neutrophil % 87.8 % (47-70); POSITIVE DIFFERENTIAL YES; Platelet Count 154 K/mm3 (150-450); RBC Distribution Width CV 13.6 % (11.6-14.6); RBC Distribution Width SD 46.6 fl (35.1-43.9); Red Blood Count 3.85 M/mm3 (4.6-6.2); White Blood Count 6.3 K/mm3 (4.4-11.0)
[2023-09-07 18:46] LABS: Differential Indicated SCAN CRITERIA MET
--- NOTE | 2023-09-07 18:48 | RAD_ITS ---
INDICATION: Fever, shortness of breath EXAMINATION/TECHNIQUE: X-RAY - XR Chest 1 View AP portable. 6:47 PM COMPARISON: 06/04/2018 FINDINGS: LINES/DEVICES: None. LUNGS: Reticulonodular opacities most pronounced in the lung bases and likely chronic. Scattered calcified nodules bilaterally. No consolidation. Rounded lucency at the left lung base is most likely a large bulla, which is more pronounced compared to the prior study. At the right lung base, more focal lucency at the CP angle and subpulmonic possible small pneumothorax versus bullous disease and overlying soft tissues. MEDIASTINUM: Aorta is atherosclerotic. CARDIAC SILHOUETTE: Not enlarged. BONES AND SOFT TISSUES: No acute abnormalities. Degenerative changes in the spine. 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 Questionable small pneumothorax loculated at the right lung base/subpulmonic, difficult to distinguish from bullous disease on this single view. Electronically Signed: Breanna Vega MD at 19:13 EST ,
[2023-09-07 18:51] LABS: Partial Thromboplast Time 31.3 Seconds (24.1-36.2)
[2023-09-07 18:53] LABS: AST(SGOT) 38 U/L (15-37); Alanine Aminotransfer ALT/SGPT 42 U/L (16-61); Albumin, Serum 3.5 g/dL (3.2-5.0); Alkaline Phosphatase 116 U/L (45-117); Anion Gap 6 (5-15); BUN 19 mg/dL (7-18); BUN/Creat Ratio 17.8 RATIO (10-20); Calcium,Total 8.7 mg/dL (8.5-10.1); Chloride 106 mmol/L (98-107); Creatinine, Serum 1.07 mg/dL (0.70-1.30); EST Glomerular Filtration Rate 70 mL/min (>60); Est Glom Filt Rate - Afr Amer 85 mL/min (>60); Estimated Creatinine Clearance 50.62 ml/min; Globulin 3.6 g/dL (2.2-4.2); Glucose 99 mg/dL (74-106); Potassium 3.9 mmol/L (3.5-5.1); Protein, Total 7.1 g/dL (6.4-8.2); Sodium Level 141 mmol/L (136-145)
[2023-09-07 18:58] LABS: Lactic Acid 1.5 mmol/L (0.4-1.9)
[2023-09-07 19:00] LABS: Prothrombin Time (Protime)PT. > 120.0 SECONDS (11.7-14.9)
[2023-09-07] MEDS: Acetaminophen 325 MG Tablet 650 MG PO (19:01)
[2023-09-07 19:05] LABS: International Normalized Ratio > 19.5
[2023-09-07 19:11] LABS: Anisocytosis RARE; Macrocytosis RARE; Platelet Estimate ADEQUATE (ADEQ); Red Cell Morphology N CHROM NORMAL (NORM C&C)
[2023-09-07 19:47] LABS: Bacteria 0 SEEN /hpf (None Seen); Mucous, Urine 0 SEEN /hpf (<or=2+)
[2023-09-07 19:49] LABS: Color, Urine Yellow (Yellow); Glucose, Dipstick Normal (Normal); Ketone-Dipstick 5 mg/dl (Negative); Leukocyte Esterase-Dipstick 25 /ul (Negative); Nitrite-Dipstick Negative (Negative); Occult Blood-Urine 25 /ul (Negative); Protein-Dipstick 100 mg/dl (Negative); Specific Gravity, Urine 1.025 (1.002-1.030); Urine Clarity Sl. Cloudy (Clear); Urine Urobilinogen Normal (Normal)
[2023-09-07 20:05] LABS: Urine Bilirubin Dipstick 1 mg/dL (Negative)
[2023-09-07 20:09] LABS: Amorphous Sediment 1+ URATE; Red Blood Cells-Urine 0-5 SEEN /hpf (0-5); Squamous Epithelial Cells - UA 0-5 SEEN /hpf (0-5); White Blood Cells 0-5 SEEN /hpf (0-5)
[2023-09-07 20:49] LABS: International Normalized Ratio 1.2; Prothrombin Time (Protime)PT. 15.2 SECONDS (11.7-14.9)
--- NOTE | 2023-09-07 20:53 | HP.PCM.HOS_ITS ---
[facility] - General General Date of Admission: 09/07/23 Date of Service: 09/07/23 Chief Complaint: Shortness of breath, cough and fever. HPI Narrative VIKA REED, is a 83 M with a past medical history of essential hypertension, hyperlipidemia, tobacco abuse; with subsequent severe (stage III) COPD and bronchiectasis followed by Dr. Dyson of the pulmonology service, chronic hypoxic respiratory failure; on 3L NC, history of pulmonary hypertension, peripheral arterial disease; with history of vascular surgery, history of tubular adenoma, history of mesenteric ischemia, history of gastritis, history of sepsis due to pneumonia and history of osteoarthritis; status post bilateral hip replacements who presents to [facility] ER complaining of shortness of breath, cough and fever. Mr. Reed reports his symptoms began approximately 2 to 3 days prior to admission with a gradual onset of dyspnea on exertion that progressed to shortness of breath at rest accompanied by wheezing. He then spiked a temperature up to 102 ?F (confirmed in the ER) with his cough producing greenish/yellowish sputum with his dyspnea made worse by exertion but not relieved by rest. He also admits to malaise and severe myalgias all over his body for which she took hydrocodone and Tylenol without relief. He denies associated nausea, vomiting, diarrhea or constipation but he does admit to occasional posttussive emesis. In the ER he was diagnosed with acute exacerbation of COPD with opagu-mh-shfpdey hypoxic respiratory insufficiency co mplicated by clinical evidence of early sepsis with a CT positive for bilateral infiltrates consistent with pneumonia +/- mass, fever and tachycardia with abnormal INR of 19.5 and he was then admitted to the PCU for ongoing care for a stay that is expected to be greater than 48 hours. [facility] Medical History Abdominal pain Bronchitis Chronic hypoxemic respiratory failure Continuous tobacco abuse COPD (chronic obstructive pulmonary disease) COPD exacerbation Cough Depression Early satiety Gastritis Heart murmur HTN (hypertension) Hypertriglyceridemia Lower respiratory tract infection Mesenteric ischemia Peripheral arterial disease Pneumonia Right wrist pain Sepsis due to pneumonia Streptococcus pneumoniae Tubular adenoma Viral URI Home Medications aspirin 81 mg tablet,delayed release (Adult Aspirin Regimen) 81 mg PO QDAY 10/13/17 [History Last Taken 09/07/23] clopidogrel 75 mg tablet (Plavix) 75 mg PO QDAY 10/13/17 [History Last Taken 09/07/23] enalapril maleate 2.5 mg tablet 2.5 mg PO Q24H 10/13/17 [History Last Taken 09/07/23] atorvastatin 20 mg tablet (Lipitor) 20 mg PO QDAY 01/05/18 [History Last Taken 09/07/23] fluticasone propionate 50 mcg/actuation nasal spray,suspension 2 spray intranasal DAILY #16 grams 04/26/18 [Rx Last Taken 09/07/23] hydroxychloroquine 200 mg tablet 200 mg PO DAILY 5 days #0 tabs 01/17/19 [H istory Last Taken 09/07/23] cholecalciferol (vitamin D3) 125 mcg (5,000 unit) tablet 125 mcg PO DAILY 04/18/21 [History Last Taken 09/07/23] guaifenesin 1,200 mg tablet, extended release 12 hr 1,200 mg PO Q12H #60 tabs 01/28/22 [Rx Last Taken 09/07/23] ipratropium 0.5 mg-albuterol 3 mg (2.5 mg base)/3 mL nebulization soln 3 ml inhalation Q6H PRN shortness of breath or wheezing #180 vials 01/28/22 [Rx Last Taken Unknown] fluticasone propionate 230 mcg-salmeterol 21 mcg/actuation HFA inhaler (Advair HFA) 2 puff inhalation BID #3 device 10/24/22 [Rx Last Taken 09/07/23] tiotropium bromide 2.5 mcg/actuation mist for inhalation (Spiriva Respimat) 2 puff inhalation Q24H #3 device 10/24/22 [Rx Last Taken Unknown] albuterol sulfate 90 mcg/actuation aerosol inhaler (Ventolin HFA) 2 puff inhalation Q4H PRN shortness of breath or wheezing #18 grams 02/10/23 [Rx Last Taken Unknown] Allergy/AdvReac Type Severity Reaction Status Date / Time No Known Allergies Allergy Verified 09/07/23 17:25 Family History Mother Diabetes Heart disease Hypertension Arthritis Parkinsons disease Surgical History H/O bilateral hip replacements Hx of vascular surgery Social History Smoking Status: Former smoker second hand exposure: Yes alcohol intake: never substance use type: does not use caffeine: Yes what type of physical activity do you participate in: none ROS ROS Narrative Review of systems: Constitutional: Patient admits to fevers and chills with severe malaise. Eyes: Patient denies visual changes. ENT: Patient denies sore throat or runny nose. Cardiovascular: Patient denies chest pain, palpitations or lower extremity edema. Respiratory: Patient admits to cough productive of greenish/yellowish sputum with dyspnea on exertion that progressed to shortness of breath at rest. Abdominal: Patient denies abdominal pain or nausea he does admit to occasional p osttussive emesis. Genitourinary: Patient denies dysuria, hematuria or urinary frequency. Musculoskeletal: Patient admits to significant myalgias and arthralgias. Neurologic: Patient denies headache, dizziness or focal neurologic deficits. Skin: Patient denies rash. Psychiatric: Patient denies depression or anxiety. Allergic: Patient denies lip swelling, tongue swelling or urticaria. Hematologic: Patient denies easy bleeding or easy bruisability. 14 point review of systems otherwise negative except for positives noted above in HPI. Vital Signs Vital Signs Vital Signs: 09/07/23 17:25 09/07/23 17:28 09/07/23 17:28 Temperature 100.4 F H 100.3 F H Temperature Source Oral Temporal Pulse Rate 91 79 Respiratory Rate 23 H 18 Respiratory Effort Short of Breath Labored Respiratory Depth Normal Respiratory Pattern Tachypnea Blood Pressure 142/56 H 143/82 H Blood Pressure Mean 84 102 Pulse Ox 91 95 Oxygen Delivery Method Nasal Cannula Nasal Cannula Nasal Cannula Oxygen Flow Rate (L/min) 3 3 3 09/07/23 18:23 09/07/23 18:10 09/07/23 18:28 Temperature 100.3 F H Temperature Source Temporal Pulse Rate 98 93 Respiratory Rate 20 H 25 H Respiratory Effort Respiratory Depth Respiratory Pattern Blood Pressure 138/62 H Blood Pressure Mean 87 Pulse Ox 95 95 Oxygen Delivery Method Nasal Cannula Nasal Cannula Oxygen Flow Rate (L/min) 3 3 09/07/23 20:44 Temperature 102 F H Temperature Source Oral Pulse Rate 85 Respiratory Rate 18 Respiratory Effort Respiratory Depth Respiratory Pattern Blood Pressure 139/71 H Blood Pressure Mean 93 Pulse Ox 95 Oxygen Delivery Method Nasal Cannula Oxygen Flow Rate (L/min) 3 Weight Weight: 146 lb Body Mass Index (BMI) 22.8 Physical Exam Const alert, oriented x3 and average body habitus Constitutional Narrative: Patient appears short of breath at rest and chronically ill. General Appearance: cooperative HEENT normocephalic, head/scalp atraumatic, hearing grossly normal bilaterally, moist oral mucous membranes and oropharynx normal Eyes PERRL, EOMs intact bilaterally and conjunctivae normal Neck no lymphadenopathy and supple Resp Resp Narrative: Decreased air movement throughout with expiratory wheezing. Cardio regular rate and regular rhythm GI normal to inspection, nondistended, normoactive bowel sounds, soft to palpation, non-tender and non-distended Extremity normal to inspection and full ROM Skin Skin Narrative: Patient has no evidence of rash at this time Neuro oriented x3, CN's II-XII intact bilaterally, moves all extremities and no focal motor deficits Sensorium / Orientation: awake, alert, oriented to person, oriented to place and oriented to time Speech: speech normal Motor Exam: strength 5/5 throughout Psych affect normal Results Medical Records Data Attestation: I reviewed the patient's medical records Lab / Micro Data Attestation: I reviewed the patient's lab results. Lab results narrative: [facility] Imaging Services [address] [place] [id number] Chest without Contrast MR#: [id number] Acct: [id number] Name: VIKA REED Rep #: [id number] : 1940 M 83 From: Breanna Vega MD PCP: Dr. Evans Lujan MD Status: ADM IN Study: Chest without Contrast Date of Exam: 09/07/23 Exam# [id number] Ordering Dr: Ahmet Nayak MD INDICATION: SOB EXAMINATION: CT CHEST WITHOUT CONTRAST - CT Chest W/O Contrast Injection TECHNIQUE: Helically acquired images were obtained of the chest. A radiation dose optimization technique was used for this scan. IV Contrast dosage and agent: None. RADIATION DOSAGE (If Supplied By Facility): CTDIvol = ( 7.68 ) mGy, DLP = ( 282.28 ) mGycm COMPARISON: CT chest 08/02/2021 FINDINGS: LUNGS: Emphysematous changes. Large bullae especially in the lower lungs similar but more pronounced compared to the prior. Consolidation in the left lower lobe, with rounded masslike configuration. Smaller area of consolidation in the right lower lobe, also more rounded configuration. Cannot exclude mass in these regions. Scattered calcified nodules throughout the lungs unchanged. Bronchial wall thickening bilaterally similar to prior. LARGE AIRWAYS: Unremarkable. PLEURA: Pleural calcifications bilaterally, unchanged. No pleural effusion. No pneumothorax. MEDIASTINUM: Unremarkable. HEART: Not enlarged. CORONARY ARTERIES: Coronary artery calcification is seen. AORTA/VESSELS: No aortic aneurysm. ESOPHAGUS: Unremarkable. UPPER ABDOMEN: No acute findings. BONES/SOFT TISSUES: Degenerative changes in the spine. OTHER/LINES: None. CT/Chest without Contrast IMPRESSION: Consolidation in the lower lobes greater on the left may be consistent with pneumonia. Cannot exclude underlying mass. CT imaging follow-up is recommended after treatment in 6-8 weeks to confirm complete resolution and rule out mass. Emphysematous changes with bullous disease in the lower lungs. No pneumothorax. Stable chronic interstitial changes and calcified nodules and calcified pleural plaques. Electronically Signed: Breanna Vega MD at 22:46 EST , CC: Dr. Ahmet Nayak MD; Dr. Evans Lujan MD ~ Investment Advisor: Signed 09/07/23 18:20 09/07/23 18:20 Labs: Laboratory Results - last 24 hr 09/07/23 18:20: WBC 6.3, RBC 3.85 L, Hgb 11.5 L, Hct 35.6 L, MCV 92.5, MCH 29.9, MCHC 32.3, RDW Std Deviation 46.6 H, RDW Coeff of Marques 13.6, Plt Count 154, MPV 9.4, Immature Gran % (Auto) 0.800, Neut % (Auto) 87.8 H, Lymph % (Auto) 3.7 L, [place] % (Auto) 7.0, Eos % (Auto) 0.2, Baso % (Auto) 0.5, Absolute Neuts (auto) 5.5, Absolute Lymphs (auto) 0.23 L, Nucleated RBC % 0, Differential Comment SEE COMMENT, Platelet Estimate ADEQUATE, RBC Morphology N CHROM, Anisocytosis RARE, Macrocytosis RARE, PT > 120.0 H, INR > 19.5 H*, APTT 31.3, Sodium 141, Potassium 3.9, Chloride 106, Carbon Dioxide 29.0, Anion Gap 6, BUN 19 H, Creatinine 1.07, Estim Creat Clear Calc 50.62, Est GFR (MDRD) Af Amer 85, Est GFR (MDRD) Non-Af 70, BUN/Creatinine Ratio 17.8, Glucose 99, Lactic Acid 1.5, Calcium 8.7, Total Bilirubin 0.90, AST 38 H, ALT 42, Alkaline Phosphatase 116, Total Protein 7.1, Albumin 3.5, Globulin 3.6, Albumin/Globulin Ratio 1.0 09/07/23 19:30: Urine Color Yellow, Urine Clarity Sl. Cloudy, Urine pH 5.0, Ur Specific [place] 1.025, Urine Protein 100 H, Urine Glucose (UA) Normal, Urine Ketones 5 H, Urine Occult Blood 25 H, Urine Nitrite Negative, Urine Bilirubin 1 H, Urine Urobilinogen Normal, Ur Leukocyte Esterase 25 H, Urine RBC 0-5 SEEN, Urine WBC 0-5 SEEN, Ur Squamous Epith Cells 0-5 SEEN, Amorphous Sediment 1+ URATE, Urine Bacteria 0 SEEN, Urine Mucus 0 SEEN 09/07/23 20:30: PT 15.2 H, INR 1.2 Micro: Microbiology 09/07/23 19:30 Nasal Secretion SARS-CoV-2 & FLU Antigen (Rapid) - Final Imagaing Radiology Impression Chest X-Ray 09/07/23 18:48 IMPRESSION: Interstitial disease and bullous disease most likely chronic. Questionable small pneumothorax loculated at the right lung base/subpulmonic, difficult to distinguish from bullous disease on this single view. Electronically Signed: Breanna Vega MD at 19:13 EST , Assessment & Plan Assessment/Plan (1) Sepsis: QUALIFIERS: Acute respiratory failure type: with hypoxia Sepsis acute organ dysfunction status: with acute organ dysfunction Sepsis type: sepsis due to unspecified organism Severe sepsis acute organ dysfunction type: acute respiratory failure Severe sepsis shock status: without septic shock Qualified Code(s): A41.9 - Sepsis, unspecified organism; R65.20 - Severe sepsis without septic shock; J96.01 - Acute respiratory failure with hypoxia (2) Pneumonia: QUALIFIERS: Laterality: right Lung location: lower lobe of lung Pneumonia type: due to unspecified organism Qualified Code(s): J18.9 - Pne umonia, unspecified organism (3) COPD exacerbation: (4) Chronic hypoxemic respiratory failure: PLAN: Plan 1. Clinically-suspected early Sepsis due to suspected right lower lobe pneumonia in the setting of known bronchiectasis and pulmonary hypertension with mass suspected on CT this admission - Admit to ICU for treatment under the sepsis protocol. Continue broad-spectrum antibiotics with IV Zosyn to cover Pseudomonas and other potentially multidrug-resistant pathogens. Give Tylenol as needed fever or pain. Initial abnormal INR of 19.5 was only 1.2 on recheck suggesting likely lab error on the first test. Follow up CT recommended in 6-8 weeks to reevaluate for possible underlying mass. Finally, we will consult Dr. Dyson of the pulmonology service to see this patient on rounds in the a.m. for further recommendations with help appreciated in advance. 2. Acute exacerbation of COPD complicating #1 - Resume IV Solu-Medrol, nebulizers, antibiotics and supplemental oxygen. Give scheduled Mucinex to help mobilize secretions. Wean steroids and nebulizers as tolerated. 3. Wijaj-hx-wnehfft hypoxic respiratory insufficiency arising from #1 and #2 - Wean supplemental oxygen as tolerated. 4. Essential hypertension - Hold scheduled antihypertensives in light of #1. Give IV hydralazine as needed for systolic blood pressure greater than 160 mmHg. 5. Hyperlipidemia - Continue statin as previous. 6. History of peripheral arterial disease; status post vascular surgery - Stable. Resume home medications as previous. 7. DVT prophylaxis - Lovenox 40 mg subcu daily plus SCDs. Update: Patient was rechecked approximately 4 hours after admission with an initial serum lactate of 1.5 mmol/L that is now down to 1.2 mmol/L. His vital signs are stable and he denies new complaints at this time. Time: Approximately 75 minutes. Sepsis Attestation Sepsis Attestation: Agree w/Sepsis Date exam was performed: 09/07/23 Time exam was performed: 23:00 Possible Source of Sepsis: Pulmonary Sepsis Organ Dysfunction Criteria Present: INR > 1.5 or aPTT > 60 sec Fluid Resuscitation Fluid resuscitation indicated?: Yes Fluid Resuscitation ordered: 30 ml/kg fluid bolus ordered Amount of fluid ordered: 2 Sepsis Note Date exam was performed: 09/08/23 Time exam was performed: 02:00 Sepsis Attestation: Sepsis re-evaluation was performed Response to fluids: Fluid responsive hypotension Charges/Coding Visit Charges Inpatient E&M: 29083 Init Hosp L3
[2023-09-07] MEDS: MethylPREDNISolone 125 MG/2 ML Vial IV (21:29)
[2023-09-07] MEDS: Piperacil/Tazobactam 3.375 GM in 0.9% Normal Saline (50mL MB+) 50 ML IV (21:29)
--- NOTE | 2023-09-07 22:17 | CT_ITS ---
INDICATION: SOB EXAMINATION: CT CHEST WITHOUT CONTRAST - CT Chest W/O Contrast Injection TECHNIQUE: Helically acquired images were obtained of the chest. A radiation dose optimization technique was used for this scan. IV Contrast dosage and agent: None. RADIATION DOSAGE (If Supplied By Facility): CTDIvol = ( 7.68 ) mGy, DLP = ( 282.28 ) mGycm COMPARISON: CT chest 08/02/2021 FINDINGS: LUNGS: Emphysematous changes. Large bullae especially in the lower lungs similar but more pronounced compared to the prior. Consolidation in the left lower lobe, with rounded masslike configuration. Smaller area of consolidation in the right lower lobe, also more rounded configuration. Cannot exclude mass in these regions. Scattered calcified nodules throughout the lungs unchanged. Bronchial wall thickening bilaterally similar to prior. LARGE AIRWAYS: Unremarkable. PLEURA: Pleural calcifications bilaterally, unchanged. No pleural effusion. No pneumothorax. MEDIASTINUM: Unremarkable. HEART: Not enlarged. CORONARY ARTERIES: Coronary artery calcification is seen. AORTA/VESSELS: No aortic aneurysm. ESOPHAGUS: Unremarkable. UPPER ABDOMEN: No acute findings. BONES/SOFT TISSUES: Degenerative changes in the spine. OTHER/LINES: None. CT/Chest without Contrast IMPRESSION: Consolidation in the lower lobes greater on the left may be consistent with pneumonia. Cannot exclude underlying mass. CT imaging follow-up is recommended after treatment in 6-8 weeks to confirm complete resolution and rule out mass. Emphysematous changes with bullous disease in the lower lungs. No pneumothorax. Stable chronic interstitial changes and calcified nodules and calcified pleural plaques. Electronically Signed: Breanna Vega MD at 22:46 EST ,
[2023-09-07] MEDS: 0.9% Saline Lock 10 ML Syringe IV (23:01)
[2023-09-07] MEDS: 0.9% Normal Saline (1000mL) 1,000 ML 999 ML IV (23:12)
[2023-09-07] MEDS: MethylPREDNISolone 125 MG/2 ML Vial 60 MG IV (23:13)
[2023-09-07 23:43] LABS: Lactic Acid 1.2 mmol/L (0.4-1.9)
[2023-09-08] VITALS (13 sets, daily range): BP systolic 126–185; BP diastolic 55–76; PULSE 63–83; RESP 16–19; TEMP 36.5–37; O2SAT 90–95
[2023-09-08] MEDS: Piperacil/Tazobactam 3.375 GM in 0.9% Normal Saline (50mL MB+) 50 ML IV ×3 (05:01→20:50)
--- NOTE | 2023-09-08 05:10 | RAD_ITS ---
STUDY: X-RAY CHEST REASON FOR EXAM: Male, 83 years old. Pneumonia and bronchiectasis TECHNIQUE: Single AP portable view of the chest. COMPARISON: 09/07/2023 FINDINGS: There is hyperinflation of the lungs consistent with chronic obstructive lung disease (COPD). Large bulla in the lower left lung. There is no demonstrated pleural abnormality. Normal size heart. Normal mediastinum and jeana. Normal visualized pulmonary arteries. Normal visualized aortic arch and descending thoracic aorta. Normal visualized thoracic spine. Normal visualized ribs, clavicles, and shoulders. There is no demonstrated abnormality of the visualized soft tissue structures of the upper abdomen. RAD/Chest 1 View (Portable) IMPRESSION: No change from 09/07/2023. Electronically Signed: Luis Patterson MD at 17:43 EST ,
[2023-09-08] MEDS: Budesonide Respules 0.5 MG/2 ML AMPUL.NEB. INHALATION (07:16)
[2023-09-08] MEDS: Albuterol 2.5 MG/3 ML VIAL.NEB. INHALATION ×2 (07:17→13:13)
[2023-09-08] MEDS: Aspirin E.C. 81 MG Tablet PO (08:29)
[2023-09-08] MEDS: Hydroxychloroquine 200 MG Tablet PO (08:30)
[2023-09-08] MEDS: Cholecalciferol (Vit D3) 125 MCG CAPSULE (5,000 UNITS) PO (08:30)
[2023-09-08] MEDS: Clopidogrel Bisulfate 75 MG Tablet PO (08:30)
[2023-09-08] MEDS: guaiFENesin 1,200 MG Tablet 1200 MG PO ×2 (08:30→19:31)
[2023-09-08] MEDS: MethylPREDNISolone 125 MG/2 ML Vial 60 MG IV ×2 (09:53→20:49)
--- NOTE | 2023-09-08 10:05 | CASEMGMT ---
ALDO HERNANDEZ Face to Face with patient for initial transition planning/care coordination assessment. RN CM introduced self and role at [facility]. Patient lying in bed, alert and oriented. Patient willing to participate in assessment and is able to answer all questions appropriately. Care providers, pharmacy, and demographics verified. Patient wishes to discharge home, denies need for home health at this time. Patient states he has no further needs or concerns at this time. CM to follow for discharge planning needs that may arise. PCP: Le Specialists: Kiel, research editor; KRISTI, inverted block operator Preferred Pharmacy: [facility] Insurance: [facility] Prescription Benefit: yes Living Will/HPOA: none LNOK: Living Arrangements: Patient lives with in a single story home with 3 steps and railing to enter. Patient states he is independent at home. Transportation: self, DME/HHC: Patient has shower chair, cane, grab bars, nebulizer, pulse ox, and home oxygen at 3lpm with portability but patient could not recall DME agency. No previous HHC or SNF Disposition Plan: Patient to discharge home with family support and follow-up plans in place. Will monitor for increase in home oxygen. Gisele DIETZ, RN, CM
--- NOTE | 2023-09-08 10:41 | CON.PCM.CC_ITS ---
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 CT scan findings are most likely secondary to an infectious process however he will need repeat CT scan in 6 to 8 weeks to ensure resolution given his long smoking history. this was discussed with the patient and he is aware. -Continue Zosyn. Sputum culture obtained. Strep antigen and Legionella antigens are negative -Continue IV steroids, will switch to PO tomorrow. Cont scheduled albuterol -will add PPI for GI prophylaxis given pt's age and he's on ASA/plavix and steroids -He is back to his baseline home oxygen at 3 L -DVT ppx HPI Consult Data Date of Consult: 09/08/23 HPI Narrative Reason for Consultation: Abnormal chest CT HPI Narrative: VIKA BUSTAMANTE, is a 83 M with past medical history of end-stage COPD on 3 L nasal cannula at home, lifelong smoker quit 2 years ago and history of PAD who presents with fever and chills along with cough and shortness of breath for the past 3 days. He reports that he has been feeling unwell for 3 days. He had fever and chills. He has also had worsening shortness of breath and has been coughing up sputum. He also reports body aches and generalized weakness. He underwent CT scan of his chest which showed bilateral infiltrates worse on the left. [facility] Medical History (Updated 09/08/23 @ 11:[address] Dilan Nunez MD) Abdominal pain Bronchitis Chronic hypoxemic respiratory failure Continuous tobacco abuse COPD (chronic obstructive pulmonary disease) COPD exacerbation Cough Depression Early satiety Gastritis Heart murmur HTN (hypertension) Hypertriglyceridemia Lower respiratory tract infection Mesenteric ischemia Peripheral arterial disease Pneumonia Right wrist pain Sepsis due to pneumonia Streptococcus pneumoniae Tubular adenoma Viral URI Home Medications aspirin 81 mg tablet,delayed release (Adult Aspirin Regimen) 81 mg PO QDAY 10/13/17 [History Last Taken 09/07/23] clopidogrel 75 mg tablet (Plavix) 75 mg PO QDAY 10/13/17 [History Last Taken 09/07/23] enalapril maleate 2.5 mg tablet 2.5 mg PO Q24H 10/13/17 [History Last Taken 09/07/23] atorvastatin 20 mg tablet (Lipitor) 20 mg PO QDAY 01/05/18 [History Last Taken 09/07/23] fluticasone propionate 50 mcg/actuation nasal spray,suspension 2 spray intran celena DAILY #16 grams 04/26/18 [Rx Last Taken 09/07/23] hydroxychloroquine 200 mg tablet 200 mg PO DAILY 5 days #0 tabs 01/17/19 [History Last Taken 09/07/23] cholecalciferol (vitamin D3) 125 mcg (5,000 unit) tablet 125 mcg PO DAILY 04/18/21 [History Last Taken 09/07/23] guaifenesin 1,200 mg tablet, extended release 12 hr 1,200 mg PO Q12H #60 tabs 01/28/22 [Rx Last Taken 09/07/23] ipratropium 0.5 mg-albuterol 3 mg (2.5 mg base)/3 mL nebulization soln 3 ml inhalation Q6H PRN shortness of breath or wheezing #180 vials 01/28/22 [Rx Last Taken Unknown] fluticasone propionate 230 mcg-salmeterol 21 mcg/actuation HFA inhaler (Advair HFA) 2 puff inhalation BID #3 device 10/24/22 [Rx Last Taken 09/07/23] tiotropium bromide 2.5 mcg/actuation mist for inhalation (Spiriva Respimat) 2 puff inhalation Q24H #3 device 10/24/22 [Rx Last Taken Unknown] albuterol sulfate 90 mcg/actuation aerosol inhaler (Ventolin HFA) 2 puff inhalation Q4H PRN shortness of breath or wheezing #18 grams 02/10/23 [Rx Last Taken Unknown] Allergy/AdvReac Type Severity Reaction Status Date / Time No Known Allergies Allergy Verified 09/07/23 17:25 Family History Mother Diabetes Heart disease Hypertension Arthritis Parkinsons disease Surgical History H/O bilateral hip replacements Hx of vascular surgery Social History Smoking Status: Former smoker second hand exposure: Yes alcohol intake: never substance use type: does not use caffeine: Yes what type of physical activity do you participate in: none ROS ROS Narrative Pertinent positives and pertinent negatives as noted in HPI. All other systems were reviewed and are negative Physical Exam Narrative General alert oriented in no acute distress HEENT. Normocephalic atraumatic, pupils equal and reactive Respiratory reduced air entry bilaterally, mild end expiratory wheeze, no crackles Cardiac S1-S2, regular rate and rhythm GI abdomen soft and nontender MSK no lower extremity edema Skin no rashes Neuro moves all extremities, no dysarthria, no facial droop Lab / Micro Data 09/07/23 18:20 09/07/23 18:20 Labs: Laboratory Results - last 24 hr 09/07/23 18:20: WBC 6.3, RBC 3.85 L, Hgb 11.5 L, Hct 35.6 L, MCV 92.5, MCH 29.9, MCHC 32.3, RDW Std Deviation 46.6 H, RDW Coeff of Marques 13.6, Plt Count 154, MPV 9.4, Immature Gran % (Auto) 0.800, Neut % (Auto) 87.8 H, Lymph % (Auto) 3.7 L, [place] % (Auto) 7.0, Eos % (Auto) 0.2, Baso % (Auto) 0.5, Absolute Neuts (auto) 5.5, Absolute Lymphs (auto) 0.23 L, Nucleated RBC % 0, Differential Comment SEE COMMENT, Platelet Estimate ADEQUATE, RBC Morphology N CHROM, Anisocytosis RARE, Macrocytosis RARE, PT > 120.0 H, INR > 19.5 H*, APTT 31.3, Sodium 141, Potassium 3.9, Chloride 106, Carbon Dioxide 29.0, Anion Gap 6, BUN 19 H, Creatinine 1.07, Estim Creat Clear Calc 50.62, Est GFR (MDRD) Af Amer 85, Est GFR (MDRD) Non-Af 70, BUN/Creatinine Ratio 17.8, Glucose 99, Lactic Acid 1.5, Calcium 8.7, Total Bilirubin 0.90, AST 38 H, ALT 42, Alkaline Phosphatase 116, Total Protein 7.1, Albumin 3.5, Globulin 3.6, Albumin/Globulin Ratio 1.0 09/07/23 19:30: Urine Color Yellow, Urine Clarity Sl. Cloudy, Urine pH 5.0, Ur Specific [place] 1.025, Urine Protein 100 H, Urine Glucose (UA) Normal, Urine Ketones 5 H, Urine Occult Blood 25 H, Urine Nitrite Negative, Urine Bilirubin 1 H, Urine Urobilinogen Normal, Ur Leukocyte Esterase 25 H, Urine RBC 0-5 SEEN, Urine WBC 0-5 SEEN, Ur Squamous Epith Cells 0-5 SEEN, Amorphous Sediment 1+ URATE, Urine Bacteria 0 SEEN, Urine Mucus 0 SEEN 09/07/23 20:30: PT 15.2 H, INR 1.2 09/07/23 23:12: Lactic Acid 1.2 Micro: Microbiology 09/08/23 05:20 Urine, Random Legionella Antigen - Final 09/08/23 05:20 Urine, Random Streptococcus pneumoniae Antigen (M - Final 09/07/23 21:38 Interface Orders Rapid RSV (DFA) - Final 09/07/23 19:30 Nasal Secretion SARS-CoV-2 & FLU Antigen (Rapid) - Final Imagaing Radiology Impression Chest X-Ray 09/07/23 18:48 IMPRESSION: Interstitial disease and bullous disease most likely chronic. Questionable small pneumothorax loculated at the right lung base/subpulmonic, difficult to distinguish from bullous disease on this single view. Electronically Signed: Breanna Vega MD at 19:13 EST , Chest CT 09/07/23 22:17 IMPRESSION: Consolidation in the lower lobes greater on the left may be consistent with pneumonia. Cannot exclude underlying mass. CT imaging follow-up is recommended after treatment in 6-8 weeks to confirm complete resolution and rule out mass. Emphysematous changes with bullous disease in the lower lungs. No pneumothorax. Stable chronic interstitial changes and calcified nodules and calcified pleural plaques. Electronically Signed: Breanna Vega MD at 22:46 EST , Charges/Coding Visit Charges Inpatient E&M: 56711 Init Hosp L3
--- NOTE | 2023-09-08 13:44 | PN_ITS ---
Subjective Subjective Patient seen and examined. He was admitted with a complaitn of weakness and cough as well as shortness of breath and fever. He is being managed for pneumonia. He says he feels much better today. He had no active complaints. He is still coughing, and it is productive of greenish sputum. He denies any chest pain, palpitations, dizziness, nausea, vomiting or any other symptoms. REview of systems is otherwise negative. Objective Data Objective Data Vital Signs: Vital Signs Temp Pulse Resp BP Pulse Ox O2 Del Method O2 Flow Rate 97.7 F L 81 19 H 148/67 H 93 Nasal Cannula 3 09/08/23 08:15 09/08/23 13:14 09/08/23 13:14 09/08/23 08:15 09/08/23 08:21 09/08/23 08:21 09/08/23 08:21 Oxygen Flow Rate (L/min) 3 Oxygen Delivery Method Nasal Cannula Weight: 142 lb 10.225 oz Body Mass Index (BMI) 22.3 Intake & Output: Intake and Output for Last 24 Hours 09/06/23 09/07/23 09/08/23 23:59 23:59 23:59 Intake Total 50 / 170 1290 / 1290 Output Total 450 / 450 Balance 50 / 170 840 / 840 Lab / Micro Data 09/07/23 18:20 09/07/23 18:20 Labs: Laboratory Results - last 24 hr 09/07/23 18:20: WBC 6.3, RBC 3.85 L, Hgb 11.5 L, Hct 35.6 L, MCV 92.5, MCH 29.9, MCHC 32.3, RDW Std Deviation 46.6 H, RDW Coeff of Marques 13.6, Plt Count 154, MPV 9.4, Immature Gran % (Auto) 0.800, Neut % (Auto) 87.8 H, Lymph % (Auto) 3.7 L, [place] % (Auto) 7.0, Eos % (Auto) 0.2, Baso % (Auto) 0.5, Absolute Neuts (auto) 5.5, Absolute Lymphs (auto) 0.23 L, Nucleated RBC % 0, Differential Comment SEE COMMENT, Platelet Estimate ADEQUATE, RBC Morphology N CHROM, Anisocytosis RARE, Macrocytosis RARE, PT > 120.0 H, INR > 19.5 H*, APTT 31.3, Sodium 141, Potassium 3.9, Chloride 106, Carbon Dioxide 29.0, Anion Gap 6, BUN 19 H, Creatinine 1.07, Estim Creat Clear Calc 50.62, Est GFR (MDRD) Af Amer 85, Est GFR (MDRD) Non-Af 70, BUN/Creatinine Ratio 17.8, Glucose 99, Lactic Acid 1.5, Calcium 8.7, Total Bilirubin 0.90, AST 38 H, ALT 42, Alkaline Phosphatase 116, Total Protein 7.1, Albumin 3.5, Globulin 3.6, Albumin/Globulin Ratio 1.0 09/07/23 19:30: Urine Color Yellow, Urine Clarity Sl. Cloudy, Urine pH 5.0, Ur Specific [place] 1.025, Urine Protein 100 H, Urine Glucose (UA) Normal, Urine Ketones 5 H, Urine Occult Blood 25 H, Urine Nitrite Negative, Urine Bilirubin 1 H, Urine Urobilinogen Normal, Ur Leukocyte Esterase 25 H, Urine RBC 0-5 SEEN, Urine WBC 0-5 SEEN, Ur Squamous Epith Cells 0-5 SEEN, Amorphous Sediment 1+ URATE, Urine Bacteria 0 SEEN, Urine Mucus 0 SEEN 09/07/23 20:30: PT 15.2 H, INR 1.2 09/07/23 23:12: Lactic Acid 1.2 Micro: Microbiology 09/08/23 05:20 Urine, Random Legionella Antigen - Final 09/08/23 05:20 Urine, Random Streptococcus pneumoniae Antigen (M - Final 09/07/23 21:38 Interface Orders Rapid RSV (DFA) - Final 09/07/23 19:30 Nasal Secretion SARS-CoV-2 & FLU Antigen (Rapid) - Final Radiography Diagnostic Testing: Radiology Impression Chest X-Ray 09/07/23 18:48 IMPRESSION: Interstitial disease and bullous disease most likely chronic. Questionable small pneumothorax loculated at the right lung base/subpulmonic, difficult to distinguish from bullous disease on this single view. Electronically Signed: Breanna Vega MD at 19:13 EST , Chest CT 09/07/23 22:17 IMPRESSION: Consolidation in the lower lobes greater on the left may be consistent with pneumonia. Cannot exclude underlying mass. CT imaging follow-up is recommended after treatment in 6-8 weeks to confirm complete resolution and rule out mass. Emphysematous changes with bullous disease in the lower lungs. No pneumothorax. Stable chronic interstitial changes and calcified nodules and calcified pleural plaques. Electronically Signed: Breanna Vega MD at 22:46 EST , Physical Exam Const alert, oriented x3 and no apparent distress General Appearance: cooperative HEENT normocephalic, head/scalp atraumatic, moist oral mucous membranes and oropharynx normal Eyes PERRL and EOMs intact bilaterally Neck no lymphadenopathy, supple and no JVD Lymph Lymphatic: no lymphadenopathy noted and no lymphedema noted Resp Resp Narrative: mildly diminished breath sounds bibasally, no wheezes or crackles. On 3L of oxygen which is his baseline at home. Cardio regular rate, regular rhythm, S1 normal heart sound, S2 normal heart sound and no murmurs GI normal to inspection, nondistended, normoactive bowel sounds, soft to palpation and non-tender Extremity normal capillary refill, no clubbing, cyanosis or edema and no calf tenderness General Extremity: no tenderness to palpation of joints or extremities Skin General Skin Exam: no breakdown Neuro CN's II-XII intact bilaterally, no focal motor deficits, no sensory deficits noted and deep tendon reflexes 2+ bilaterally Motor Exam: strength 5/5 throughout and general weakness Psych thought process normal, cooperative and affect normal Appearance: appropriate Assessment & Plan Assessment/Plan (1) Left lower lobe pneumonia: (2) SOB (shortness of breath): PLAN: Plan #Right lower lobe pneumonia * CXR and Chest CT was also concerning for suspected mass in setting of pneumonia * feels much better today * currently on IV zosyn * pulmonology consulted; per pulm, his CT findings are more likely related to an infeciotus process. He will benefit from a CT scan in 6-8 weeks to ensure resolution. * * #Acute exacerbation of COPD * on IV solumedrol and breathing treatment with bronchodilators. To switch to PO steroids tomorrow * titrate oxygen to maintain sats >90% * #Hyperlipidemia: on statin #History of PAD: on aspirin and plavix DVT prophylaxis; lovenox Charges/Coding Visit Charges Inpatient E&M: 24826 Subs Hosp L2
--- NOTE | 2023-09-08 13:47 | CASEMGMT ---
Per nursing admission questions patient does not have a Healthcare Power of Wastewater Treatment Operator or Healthcare Living Will and patient is not interested in documents. Savi BUNDY
[2023-09-08] MEDS: Petrolatum 33% Tube 1 APPLIC TOPICAL (16:18)
[2023-09-08] MEDS: Lisinopril 2.5 MG Tablet PO (16:18)
[2023-09-08] MEDS: hydrALAZINE 20 MG/ML Vial 10 MG IV (17:34)
[2023-09-08] MEDS: Atorvastatin Calcium 20 MG Tablet PO (19:30)
[2023-09-09] VITALS (10 sets, daily range): BP systolic 151–173; BP diastolic 52–76; PULSE 55–66; RESP 16–18; TEMP 36.3–36.6; O2SAT 86–97
[2023-09-09] MEDS: Piperacil/Tazobactam 3.375 GM in 0.9% Normal Saline (50mL MB+) 50 ML IV (05:01)
[2023-09-09] MEDS: Budesonide Respules 0.5 MG/2 ML AMPUL.NEB. INHALATION (06:39)
[2023-09-09] MEDS: Albuterol 2.5 MG/3 ML VIAL.NEB. INHALATION ×2 (06:40→13:08)
[2023-09-09 07:46] LABS: Absolute Lymphocyte Count 0.72 X10^3/uL (0.83-4.51); Absolute Neutrophil Count 9.1 X10^3/uL (2.0-7.7); Basophil# 0.01 X10^3/uL; Basophil% 0.1 % (0-1); Hematocrit 35.4 % (40-54); Hemoglobin 11.6 g/dL (13.0-16.5); Lymphocyte # 0.72 X10^3/ul (0.83-4.51); Lymphocyte % 6.9 % (19-41); Mean Corp Hgb Conc 32.8 g/dL (32-36); Mean Corpuscular Hgb 30.1 pg (27.0-32.0); Mean Corpuscular Volume 91.9 fL (80-94); Mean Platelet Vol. 10.3 fl (6.2-12.0); Monocyte# 0.55 X10^3/uL; Monocyte% 5.3 % (0-10); NRBC Flagged by Analyzer 0 % (0-5); Neutrophil % 87.2 % (47-70); Platelet Count 139 K/mm3 (150-450); RBC Distribution Width CV 13.5 % (11.6-14.6); RBC Distribution Width SD 45.4 fl (35.1-43.9); Red Blood Count 3.85 M/mm3 (4.6-6.2); White Blood Count 10.4 K/mm3 (4.4-11.0)
[2023-09-09 08:14] LABS: Anion Gap 5 (5-15); BUN 29 mg/dL (7-18); BUN/Creat Ratio 32.6 RATIO (10-20); Chloride 110 mmol/L (98-107); Creatinine, Serum 0.89 mg/dL (0.70-1.30); EST Glomerular Filtration Rate 87 mL/min (>60); Est Glom Filt Rate - Afr Amer 106 mL/min (>60); Estimated Creatinine Clearance 59.57 ml/min; Glucose 107 mg/dL (74-106); Potassium 3.7 mmol/L (3.5-5.1); Sodium Level 139 mmol/L (136-145)
[2023-09-09] MEDS: Aspirin E.C. 81 MG Tablet PO (09:04)
[2023-09-09] MEDS: Fluticasone 0.05% 1 SPRAY NASAL.SRY 2 SPRAY NASAL (09:05)
[2023-09-09] MEDS: predniSONE 20 MG Tablet 60 MG PO (09:05)
[2023-09-09] MEDS: Pantoprazole Sodium 40 MG Tablet PO (09:05)
[2023-09-09] MEDS: Clopidogrel Bisulfate 75 MG Tablet PO (09:07)
[2023-09-09] MEDS: Hydroxychloroquine 200 MG Tablet PO (09:07)
[2023-09-09] MEDS: Cholecalciferol (Vit D3) 125 MCG CAPSULE (5,000 UNITS) PO (09:07)
[2023-09-09] MEDS: guaiFENesin 1,200 MG Tablet 1200 MG PO (09:07)
[2023-09-09] MEDS: Lisinopril 2.5 MG Tablet PO (09:08)
--- NOTE | 2023-09-09 12:19 | PN.CC_ITS ---
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 CT scan findings are most likely secondary to an infectious process however he will need repeat CT scan in 6 to 8 weeks to ensure resolution given his long smoking history. this was discussed with the patient and he is aware. -He will need total of 7 days of antibiotics. Sputum culture are pending . Strep antigen and Legionella antigens are negative -recommend steroid taper prednisone 40mg for 3 days followed by prednisone 20mg for another 3 days with GI prophylaxis -will add PPI for GI prophylaxis given pt's age and he's on ASA/plavix and steroids -He is back to his baseline home oxygen at 3 L. He can be d'lisa after walk test from pulm stand point with follow up in outpt setting. -DVT ppx Subjective Subjective Sitting in the chair reports that his breathing is better but he feels weak. He would like to take a walk before he is discharged to see if he can handle it. Objective Data Objective Data Vital Signs: Vital Signs Temp Pulse Resp BP Pulse Ox O2 Del Method O2 Flow Rate 36.6 C 64 18 151/59 H 97 Nasal Cannula 3 09/09/23 11:25 09/09/23 11:25 09/09/23 11:25 09/09/23 11:25 09/09/23 11:25 09/09/23 11:25 09/09/23 11:25 Oxygen Flow Rate (L/min) 3 Oxygen Delivery Method Nasal Cannula Weight: 64.7 kg Body Mass Index (BMI) 22.3 Intake & Output: Intake and Output for Last 24 Hours 09/07/23 09/08/23 09/09/23 23:59 23:59 23:59 Intake Total 50 / 170 1890 / 2370 1060 / 1060 Output Total 1050 / 1750 1350 / 1350 Balance 50 / 170 840 / 620 -290 / -290 Lab / Micro Data 09/09/23 07:15 09/09/23 07:15 Labs: Laboratory Results - last 24 hr 09/09/23 07:15: WBC 10.4, RBC 3.85 L, Hgb 11.6 L, Hct 35.4 L, MCV 91.9, MCH 30 .1, MCHC 32.8, RDW Std Deviation 45.4 H, RDW Coeff of Marques 13.5, Plt Count 139 L, MPV 10.3, Immature Gran % (Auto) 0.500, Neut % (Auto) 87.2 H, Lymph % (Auto) 6.9 L, [place] % (Auto) 5.3, Eos % (Auto) 0.0, Baso % (Auto) 0.1, Absolute Neuts (auto) 9.1 H, Absolute Lymphs (auto) 0.72 L, Nucleated RBC % 0, Sodium 139, Potassium 3.7, Chloride 110 H, Carbon Dioxide 24.0, Anion Gap 5, BUN 29 H, Creatinine 0.89, Estim Creat Clear Calc 59.57, Est GFR (MDRD) Af Amer 106, Est GFR (MDRD) Non-Af 87, BUN/Creatinine Ratio 32.6 H, Glucose 107 H, Calcium 8.0 L Micro: Microbiology 09/07/23 19:30 Urine, Clean Catch Urine Culture - Final Culture exhibits no growth. 09/08/23 05:20 Urine, Random Legionella Antigen - Final 09/08/23 05:20 Urine, Random Streptococcus pneumoniae Antigen (M - Final 09/07/23 21:38 Interface Orders Rapid RSV (DFA) - Final 09/07/23 19:30 Nasal Secretion SARS-CoV-2 & FLU Antigen (Rapid) - Final Radiography Diagnostic Testing: Radiology Impression Chest X-Ray 09/08/23 05:10 IMPRESSION: No change from 09/07/2023. Electronically Signed: Luis Patterson MD at 17:43 EST , Physical Exam Narrative General alert oriented in no acute distress HEENT. Normocephalic atraumatic, pupils equal and reactive Respiratory reduced air entry bilaterally, mild end expiratory wheeze, no crackles Cardiac S1-S2, regular rate and rhythm GI abdomen soft and nontender MSK no lower extremity edema Skin no rashes Neuro moves all extremities, no dysarthria, no facial droop
--- NOTE | 2023-09-09 14:14 | DCINST_ITS ---
Discharge Instructions Diet Discharge Diet: No restrictions Activity Discharge Activity: Return to Normal Activity Weight Bearing Status: Full weight bearing Follow Up Care Test Results: Test results from this visit will be discussed in further detail at your follow- up appointment, if applicable. Discharge Plan Admission Admit Date/Time: 09/07/23 21:18 Primary Reason for Your Visit: pneumonia Attending Provider: John Garnica Primary Care Provider: Evans Lujan Consulting Providers: Dilan Nunez; Eric Hugo; Heather Bell Instructions Additional Instructions / Restrictions: start your Prednisone and Levaquin tomorrow Discharge Orders/Prescriptions Prescriptions: New levofloxacin 500 mg tablet 500 mg PO DAILY Qty: 5 0RF Rx Instructions: start on 09/10/23 prednisone 20 mg tablet 40 mg PO UD Qty: 9 0RF Rx Instructions: 40 mg daily for 3 days, then 20 mg daily for 3 days, then stop pantoprazole [Protonix] 40 mg tablet,delayed release (DR/EC) 40 mg PO DAILY Qty: 10 0RF Rx Instructions: one daily starting 09/10/23 Continued atorvastatin [Lipitor] 20 mg tablet 20 mg PO QDAY enalapril maleate 2.5 mg tablet 2.5 mg PO Q24H clopidogrel [Plavix] 75 mg tablet 75 mg PO QDAY aspirin [Adult Aspirin Regimen] 81 mg tablet,delayed release (DR/EC) 81 mg PO QDAY fluticasone propionate 50 mcg/actuation spray,suspension 2 spray INTRANASAL DAILY Qty: 16 3RF hydroxychloroquine 200 mg tablet 200 mg PO DAILY 5 Days Qty: 0 cholecalciferol (vitamin D3) 125 mcg (5,000 unit) tablet 125 mcg PO DAILY ipratropium-albuterol 0.5 mg-3 mg(2.5 mg base)/3 mL solution for nebulization 3 ml INHALATION Q6H PRN (Reason: shortness of breath or wheezing) Qty: 180 6RF guaifenesin 1,200 mg tablet extended release 12hr 1,200 mg PO Q12H Qty: 60 6RF Advair HFA 230-21 mcg/actuation HFA aerosol inhaler 2 puff INHALATION BID Qty: 3 3RF Spiriva Respimat 2.5 mcg/actuation mist 2 puff INHALATION Q24H Qty: 3 3RF albuterol sulfate [Ventolin HFA] 90 mcg/actuation HFA aerosol inhaler 2 puff inhalation Q4H PRN (Reason: shortness of breath or wheezing) Qty: 18 6RF Referrals / Follow Up: Evans Lujan MD [Primary Care Provider] - Within 2 Weeks Fredo Dyson DO [Med Staff - Active Staff] - Within 1 Month (you will need a repeat CT of the chest in 6-8 weeks) Disposition Disposition (needs filled in before D/C Order can be placed): Home, Self Care
--- NOTE | 2023-09-09 14:30 | PCM.DC.SUM ---
Providers Date of Admission: 09/07/23 Date of Discharge: 09/09/23 Primary Care Physician: Dr. 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 Routine Consulting Provider: Dilan Nunez Reason for Consult: Bilateral pneumonia with acute exacerbation of COPD with sepsis and ?mass EMERGENT Consult: No MD Notified: Yes Date Notified: 09/08/23 Time Notified: 06:42 Method of Notification: Text Reason For Visit: SEPSIS DUE TO PNEUMONIA W/ ACUTE EXACERBATION Diagnosis Discharge Diagnosis (1) Left lower lobe pneumonia: Status: Acute Code(s): J18.9 - Pneumonia, unspecified organism Plan Final diagnosis #1 right lower lobe community-acquired pneumonia #2 acute exacerbation of COPD #3 chronic hypoxic respiratory failure #4 essential hypertension #5 hyperlipidemia Sepsis was ruled out Medications at Discharge Home Medications aspirin 81 mg tablet,delayed release (Adult Aspirin Regimen) 81 mg PO QDAY 10/13/17 clopidogrel 75 mg tablet (Plavix) 75 mg PO QDAY 10/13/17 enalapril maleate 2.5 mg tablet 2.5 mg PO Q24H 10/13/17 atorvastatin 20 mg tablet (Lipitor) 20 mg PO QDAY 01/05/18 fluticasone propionate 50 mcg/actuation nasal spray,suspension 2 spray intranasal DAILY #16 grams 04/26/18 hydroxychloroquine 200 mg tablet 200 mg PO DAILY 5 days #0 tabs 01/17/19 cholecalciferol (vitamin D3) 125 mcg (5,000 unit) tablet 125 mcg PO DAILY 04/18/21 guaifenesin 1,200 mg tablet, extended release 12 hr 1,200 mg PO Q12H #60 tabs 01/28/22 ipratropium 0.5 mg-albuterol 3 mg (2.5 mg base)/3 mL nebulization soln 3 ml inhalation Q6H PRN shortness of breath or wheezing #180 vials 01/28/22 fluticasone propionate 230 mcg-salmeterol 21 mcg/actuation HFA inhaler (Advair HFA) 2 puff inhalation BID #3 device 10/24/22 tiotropium bromide 2.5 mcg/actuation mist for inhalation (Spiriva Respimat) 2 puff inhalation Q24H #3 device 10/24/22 albuterol sulfate 90 mcg/actuation aerosol inhaler (Ventolin HFA) 2 puff inhalation Q4H PRN shortness of breath or wheezing #18 grams 02/10/23 levofloxacin 500 mg tablet 500 mg PO DAILY #5 tabs 09/09/23 pantoprazole 40 mg tablet,delayed release (Protonix) 40 mg PO DAILY #10 tabs 09/09/23 prednisone 20 mg tablet 40 mg (2 x 20 mg) PO UD #9 tabs 09/09/23 Hospital Course Operations None Procedures None Summary of Care Provided Minutes Spent on Discharge: 31 Hospital Course: This 83-year-old white male was seen in the emergency room at [facility] with complaints of shortness of breath, fever, and bodyaches patient wears 3 L of oxygen chronically at home due to history of COPD. Workup in the emergency room included a CBC which revealed a normal white blood cell count, hemoglobin was 11.5, and chemistry profile was unremarkable. 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 Respiratory swabs were negative for COVID and influenza. CT of the chest was obtained which was positive for bilateral infiltrates consistent with pneumonia, patient was admitted to PCU, he was seen in consultation by pulmonary medicine, he was maintained on IV antibiotics and IV corticosteroids. Patient's medical condition improved during his hospitalization and he had no complications. The etiology of his pneumonia was not determined. On 09/09/2023, patient was seen and examined: On examination he appeared in good health and spirits. Vital signs as documented. Skin warm and dry and without overt rashes. Neck without JVD, neck was supple, trachea midline, thyroid was normal. Lungs-decreased breath sounds were noted bilaterally, occasional expiratory wheezes were scattered over both lungs, normal air movement was noted. Heart exam notable for regular rhythm, normal sounds and absence of murmurs, rubs or gallops. Abdomen unremarkable and without evidence of organomegaly, masses, or abdominal aortic enlargement. Bowel sounds are present, abdomen is not distended. Extremities nonedematous, no cyanosis was noted, no clubbing was noted. Neuro: Cranial nerves II through XII are grossly intact, no focal motor deficits were noted, sensation to light touch and pinprick intact, motor exam 5/5 throughout. Psych: Patient is alert and oriented x3, he does not appear anxious or depressed, he does not appear agitated. On 09/09/2023, patient was seen and examined and felt to be stable for discharge home Weight / BMI Weight Weight: 64.7 kg Body Mass Index (BMI) 22.3 ABG / Lab / Microbiology Data 09/09/23 07:15 09/09/23 07:15 Laboratory: Laboratory Results - last 24 hr 09/09/23 07:15: WBC 10.4, RBC 3.85 L, Hgb 11.6 L, Hct 35.4 L, MCV 91.9, MCH 30.1, MCHC 32.8, RDW Std Deviation 45.4 H, RDW Coeff of Marques 13.5, Plt Count 139 L, MPV 10.3, Immature Gran % (Auto) 0.500, Neut % (Auto) 87.2 H, Lymph % (Auto) 6.9 L, [place] % (Auto) 5.3, Eos % (Auto) 0.0, Baso % (Auto) 0.1, Absolute Neuts (auto) 9.1 H, Absolute Lymphs (auto) 0.72 L, Nucleated RBC % 0, Sodium 139, Potassium 3.7, Chloride 110 H, Carbon Dioxide 24.0, Anion Gap 5, BUN 29 H, Creatinine 0.89, Estim Creat Clear Calc 59.57, Est GFR (MDRD) Af Amer 106, Est GFR (MDRD) Non-Af 87, BUN/Creatinine Ratio 32.6 H, Glucose 107 H, Calcium 8.0 L Microbiology: Microbiology 09/08/23 07:20 Sputum, Expectorated/Coughed Gram Stain - Final 09/08/23 07:20 Sputum, Expectorated/Coughed Respiratory Culture - Preliminary Gram negative corey 09/07/23 18:55 Blood Culture (Wb) - Left Wrist Blood Culture - Preliminary No growth in 48 hours. 09/07/23 18:20 Blood Culture (Wb) - Anticubital Left Blood Culture - Preliminary No growth in 48 hours. 09/07/23 19:30 Urine, Clean Catch Urine Culture - Final Culture exhibits no growth. 09/08/23 05:20 Urine, Random Legionella Antigen - Final 09/08/23 05:20 Urine, Random Streptococcus pneumoniae Antigen (M - Final 09/07/23 21:38 Interface Orders Rapid RSV (DFA) - Final 09/07/23 19:30 Nasal Secretion SARS-CoV-2 & FLU Antigen (Rapid) - Final Radiography Diagnostic Testing: Radiology Impression Chest X-Ray 09/08/23 05:10 IMPRESSION: No change from 09/07/2023. Electronically Signed: Luis Patterson MD at 17:43 EST , D/C Instructions Discharge Diet: No restrictions Weight Bearing Status: Full weight bearing Meaningful Use Info Meaningful Use Diagnoses (Choose all that apply): None applicable Discharge Plan Admission Admit Date/Time: 09/07/23 21:18 Primary Reason for Your Visit: pneumonia Attending Provider: John Garnica Primary Care Provider: Evans Lujan Consulting Providers: Dilan Nunez; Eric Hugo; Heather Bell Instructions Additional Instructions / Restrictions: start your Prednisone and Levaquin tomorrow Discharge Orders/Prescriptions Prescriptions: New levofloxacin 500 mg tablet 500 mg PO DAILY Qty: 5 0RF Rx Instructions: start on 09/10/23 prednisone 20 mg tablet 40 mg PO UD Qty: 9 0RF Rx Instructions: 40 mg daily for 3 days, then 20 mg daily for 3 days, then stop pantoprazole [Protonix] 40 mg tablet,delayed release (DR/EC) 40 mg PO DAILY Qty: 10 0RF Rx Instructions: one daily starting 09/10/23 Continued atorvastatin [Lipitor] 20 mg tablet 20 mg PO QDAY enalapril maleate 2.5 mg tablet 2.5 mg PO Q24H clopidogrel [Plavix] 75 mg tablet 75 mg PO QDAY aspirin [Adult Aspirin Regimen] 81 mg tablet,delayed release (DR/EC) 81 mg PO QDAY fluticasone propionate 50 mcg/actuation spray,suspension 2 spray INTRANASAL DAILY Qty: 16 3RF hydroxychloroquine 200 mg tablet 200 mg PO DAILY 5 Days Qty: 0 cholecalciferol (vitamin D3) 125 mcg (5,000 unit) tablet 125 mcg PO DAILY ipratropium-albuterol 0.5 mg-3 mg(2.5 mg base)/3 mL solution for nebulization 3 ml INHALATION Q6H PRN (Reason: shortness of breath or wheezing) Qty: 180 6RF guaifenesin 1,200 mg tablet extended release 12hr 1,200 mg PO Q12H Qty: 60 6RF Advair HFA 230-21 mcg/actuation HFA aerosol inhaler 2 puff INHALATION BID Qty: 3 3RF Spiriva Respimat 2.5 mcg/actuation mist 2 puff INHALATION Q24H Qty: 3 3RF albuterol sulfate [Ventolin HFA] 90 mcg/actuation HFA aerosol inhaler 2 puff inhalation Q4H PRN (Reason: shortness of breath or wheezing) Qty: 18 6RF Referrals / Follow Up: Evans Lujan MD [Primary Care Provider] - Within 2 Weeks Fredo Dyson DO [Med Staff - Active Staff] - Within 1 Month (you will need a repeat CT of the chest in 6-8 weeks) Disposition Disposition (needs filled in before D/C Order can be placed): Home, Self Care Charges/Coding Visit Charges Inpatient E&M: 37013 Disch Hosp >30min
--- NOTE | 2023-09-09 14:56 | PHA.DC_ITS ---
Pharmacy [facility] has performed discharge medication reconciliation and counseling for this patient. 1. LEVOFLOXACIN 500MG PO DAILY X 5 DAYS 2. PANTOPRAZOLE 40MG PO DAILY X 10 DAYS 3. PREDNISONE 40MG PO DAILY X 3 DAYS, THEN 20MG X 3 DAYS The patient's discharge medication list was reviewed for discrepancies and discrepancies were resolved. The patient was counseled on the following discharge medications and changes in medications for homegoing were reviewed. The Reason for Use, instructions for use, and potential side effects were reviewed for all new medications. The patient's questions regarding all of their medications were answered. The patient was able to verbally demonstrate an understanding of their discharge medications. Medications at Discharge Home Medications aspirin 81 mg tablet,delayed release (Adult Aspirin Regimen) 81 mg PO QDAY 10/13 clopidogrel 75 mg tablet (Plavix) 75 mg PO QDAY 10/13/17 enalapril maleate 2.5 mg tablet 2.5 mg PO Q24H 10/13/17 atorvastatin 20 mg tablet (Lipitor) 20 mg PO QDAY 01/05/18 fluticasone propionate 50 mcg/actuation nasal spray,suspension 2 spray intranasal DAILY #16 grams 04/26/18 hydroxychloroquine 200 mg tablet 200 mg PO DAILY 5 days #0 tabs 01/17/19 cholecalciferol (vitamin D3) 125 mcg (5,000 unit) tablet 125 mcg PO DAILY 04/18/21 guaifenesin 1,200 mg tablet, extended release 12 hr 1,200 mg PO Q12H #60 tabs 01/28/22 ipratropium 0.5 mg-albuterol 3 mg (2.5 mg base)/3 mL nebulization soln 3 ml inhalation Q6H PRN shortness of breath or wheezing #180 vials 01/28/22 fluticasone propionate 230 mcg-salmeterol 21 mcg/actuation HFA inhaler (Advair HFA) 2 puff inhalation BID #3 device 10/24/22 tiotropium bromide 2.5 mcg/actuation mist for inhalation (Spiriva Respimat) 2 puff inhalation Q24H #3 device 10/24/22 albuterol sulfate 90 mcg/actuation aerosol inhaler (Ventolin HFA) 2 puff inhalation Q4H PRN shortness of breath or wheezing #18 grams 02/10/23 levofloxacin 500 mg tablet 500 mg PO DAILY #5 tabs 09/09/23 pantoprazole 40 mg tablet,delayed release (Protonix) 40 mg PO DAILY #10 tabs 09/09/23 prednisone 20 mg tablet 40 mg (2 x 20 mg) PO UD #9 tabs 09/09/23
[2023-09-09] MEDS: levoFLOXacin 750 MG Tablet PO (15:11)
== END 2023-09-09 15:58 | disposition home or self-care (01) | DRG 194 ==
LOC: ED 21:46 → PCU 21:50
PROVIDERS: Student in an Organized Health Care Education/Training Program; Admitting Provider Internal Medicine; Emergency Provider Emergency Medicine; PCP Internal Medicine; Visit Provider Internal Medicine
DX: J18.9 Pneumonia, unspecified organism (principal); J96.11 Chronic respiratory failure with hypoxia; J44.0 Chronic obstructive pulmonary disease with (acute) lower respiratory infection; J44.1 Chronic obstructive pulmonary disease with (acute) exacerbation; Z16.24 Resistance to multiple antibiotics; B97.4 Respiratory syncytial virus as the cause of diseases classified elsewhere; I73.9 Peripheral vascular disease, unspecified; I10 Essential (primary) hypertension; E78.5 Hyperlipidemia, unspecified; J92.9 Pleural plaque without asbestos; Z79.02 Long term (current) use of antithrombotics/antiplatelets; Z87.891 Personal history of nicotine dependence; Z79.82 Long term (current) use of aspirin
CPT/HCPCS: 36415; 71045; 71250; 80048; 80053; 81001; 83605; 85025; 85610; 85730; 87040; 87070; 87077; 87086; 87184; 87186; 87205; 87428; 87449; 87807; 93005; 94640; 94668; 94762; 99252; 99285; J7030; A4216; G0463

== ENCOUNTER → 2023-11-20 | Outpatient (CLI) | payer MEDICARE, SELFPAY ==
--- NOTE | 2023-11-20 12:37 | CT_ITS ---
STUDY: CT CHEST WITHOUT CONTRAST REASON FOR EXAM: Male, 83 years old. Pneumonia v/s mass RADIATION DOSAGE (If Supplied By Facility): CTDIvol = ( 8.76 ) mGy, DLP = ( 352.30 ) mGycm TECHNIQUE: Transaxial imaging was performed without the administration of intravenous contrast material. Multiplanar coronal and sagittal images were reformatted. Individualized dose optimization techniques were used for this CT. COMPARISON: Comparison is made with prior study dated September 07, 2023. FINDINGS: CHEST Stable small benign-appearing bilateral axillary lymph nodes. Hyperinflation. Emphysematous changes. Bullous formation are seen worse in the right lower lobe. Persistent soft tissue densities in both lower lobes with evidence of bronchiectasis. These may represent rounded atelectasis. Calcified bilateral pleural plaques. There are calcifications of the coronary arteries. There are multiple small lymph nodes within the mediastinum, which are normal in size and morphology most compatible with reactive lymph hyperplasia. Normal hilar regions. Normal unenhanced pulmonary arteries. There is atherosclerotic calcification of the aortic arch with tortuosity and elongation of the aortic arch and descending thoracic aorta. There are multi-level degenerative changes of the thoracic spine. There is no demonstrated abnormality of the visualized upper abdomen. CT/Chest without Contrast IMPRESSION: Stable examination. Emphysematous changes. The lateral pleural plaque calcification. Findings suggestive of possible rounded atelectasis at both lung bases. Electronically Signed: Earl Simmons MD at 14:26 EST ,
== END | disposition home or self-care (01) ==
PROVIDERS: PCP Internal Medicine; Referring Provider Nurse Practitioner Acute Care; Visit Provider Nurse Practitioner Acute Care
DX: J18.9 Pneumonia, unspecified organism (principal)
CPT/HCPCS: 71250

== ENCOUNTER 2024-03-03 10:30 | Outpatient (RCR) | payer MEDICARE, SELFPAY ==
[2024-02-25 10:16] VITALS: BP 174/65; PULSE 94; RESP 18; TEMP 37.1; BMI 21.6
--- NOTE | 2024-02-25 10:58 | HP.PCM_ITS ---
History of Present Illness Date of Service: 02/25/24 Chief Complaint: Left plantar heel and posterior heel ulceration History of Wound: Patient is an 83-year-old male who presents to the wound care center for a nonhealing plantar heel ulcer and posterior heel ulceration of the left foot. Patient states that he sleeps in a recliner with his legs down. He is experiencing lower extremity pain and did follow-up with Dr. Jamey Gasca and underwent angioplasty with bypass graft on 02/11/2024. Patient does have noted COPD and is on 3 L of oxygen. Patient does not wear compression stockings. Patient does usually follow Dr. Hinton and post vascular surgery was referred to the wound center for continuation of his nonhealing ulcerations. Patient denies diabetes. States the ulcerations have been present for 3 months prior to revascularization and they have been treating with Medihoney and dry dressings. states there is periwound maceration following his revascularization. Patient denies N/V/F/chills. Patient denies further complaints. [facility] Medical History (Updated 02/25/24 @ 13:[address] Xavier Fleming, DPM) COPD with acute exacerbation Early satiety Abdominal pain Cough Heart murmur Right wrist pain Gastritis Lower respiratory tract infection Sepsis due to pneumonia Streptococcus pneumoniae Depression Viral URI Bronchitis Mesenteric ischemia COPD exacerbation Peripheral arterial disease HTN (hypertension) Hypertriglyceridemia Tubular adenoma COPD (chronic obstructive pulmonary disease) Chronic hypoxemic respiratory failure Pneumonia Continuous tobacco abuse Home Medications ?Medication ?Instructions ?Recorded ?Last Taken ?Type aspirin 81 mg tablet,delayed 81 mg PO QDAY 10/13/17 09/07/23 History release (Adult Aspirin Regimen) clopidogrel 75 mg tablet (Plavix) 75 mg PO QDAY 10/13/17 09/07/23 History atorvastatin 20 mg tablet (Lipitor) 20 mg PO QDAY 01/05/18 09/07/23 History fluticasone propionate 50 2 spray intranasal DAILY #16 grams 04/26/18 09/07/23 Rx mcg/actuation nasal spray,suspension hydroxychloroquine 200 mg tablet 200 mg PO DAILY 5 days #0 tabs 01/17/19 09/07/23 History cholecalciferol (vitamin D3) 125 125 mcg PO DAILY 04/18/21 09/07/23 History mcg (5,000 unit) tablet guaifenesin 1,200 mg tablet, 1,200 mg PO Q12H #60 tabs 01/28/22 09/07/23 Rx extended release 12 hr Disability Placard #1 ea 10/19/23 Unknown Rx enalapril maleate 5 mg tablet 5 mg PO DAILY 10/19/23 Unknown History ipratropium 0.5 mg-albuterol 3 mg 3 ml inhalation Q6H PRN shortness 10/19/23 Unknown Rx (2.5 mg base)/3 mL nebulization of breath or wheezing #180 vials soln fluticasone propionate 230 2 puff inhalation BID #3 device 10/20/23 Unknown Rx mcg-salmeterol 21 mcg/actuation HFA inhaler (Advair HFA) tiotropium bromide 2.5 2 puff inhalation Q24H #3 device 10/20/23 Unknown Rx mcg/actuation mist for inhalation (Spiriva Respimat) albuterol sulfate 90 mcg/actuation 2 puff inhalation Q6H PRN 11/27/23 Unknown Rx aerosol inhaler (ProAir HFA) shortness of breath or wheezing #18 grams Allergy/AdvReac Type Severity Reaction Status Date / Time No Known Allergies Allergy Verified 11/27/23 09:30 Family History (Reviewed 11/27/23 @ 09:48 by Wendie Broderick WINDOWS DESKTOP SUPPORT, WINDOWS DESKTOP SUPPORT-C) Mother Diabetes Heart disease Hypertension Arthritis Parkinsons disease Surgical History (Reviewed 11/27/23 @ 09:48 by Wendie Broderick WINDOWS DESKTOP SUPPORT, WINDOWS DESKTOP SUPPORT-C) Hx of vascular surgery H/O bilateral hip replacements Social History (Reviewed 11/27/23 @ 09:48 by Wendie Broderick WINDOWS DESKTOP SUPPORT, WINDOWS DESKTOP SUPPORT-C) Smoking Status: Former smoker second hand exposure: Yes alcohol intake: never substance use type: does not use caffeine: Yes what type of physical activity do you participate in: none ROS Constitutional Constitutional: Denies anorexia, change in weight, chills or fever(s) Eyes Eyes: Denies blurry vision, change in vision or dry eyes ENT HEENT: Denies dysphagia, nasal congestion or sore throat Cardiovascular Cardiovascular: Denies chest pain, claudication, dyspnea or palpitations Respiratory/Chest Respiratory/Chest: Denies cough, shortness of breath at rest or wheezing Gastrointestinal Gastrointestinal: Denies abdominal pain, constipation, diarrhea, nausea or vomiting Genitourinary Genitourinary: Denies dysuria, hematuria or urinary urgency Musculoskeletal Musculoskeletal: Denies joint pain, joint stiffness or joint swelling Integumentary Integumentary: Denies lesions, pruritus or rash Neurologic Neurologic: Denies dizziness, numbness or seizures Psychiatric Psychiatric: Denies depression Endocrine Endocrinology: Denies cold intolerance, heat intolerance or polydipsia Hematologic/Lymphatic Hematologic/Lymphatic: Denies easy bleeding or easy bruising Vital Signs Vital Signs Vital Signs: 02/25/24 10:16 Temperature 98.7 F Temperature Source Temporal Pulse Rate 94 Respiratory Rate 18 Blood Pressure 174/65 H Blood Pressure Mean 101 Blood Pressure Source Monitor Blood Pressure Position Semi-Fowlers Blood Pressure Location Left Arm Weight Weight: 60.781 kg Body Mass Index (BMI) 21.6 Physical Exam Const alert, oriented x3 and no apparent distress General Appearance: cooperative HEENT normocephalic Eyes General Eye: normal appearance of both eyes Neck General: normal visual inspection Lymph Lymphatic: no lymphadenopathy noted and no lymphedema noted Resp normal respiratory effort Cardio regular rate and regular rhythm Extremity no calf tenderness Extremity Narrative: Vascular: DP and PT nonpalpable bilateral. CFT sluggish to digits greater than 5 seconds. Normal temperature gradient. Hair growth is absent to digits bilateral. Neurologic: Epicritic sensation intact. No focal deficits noted. Musculoskeletal: Muscle strength 5 of 5 age-appropriate. There is decreased range of motion of the ankle joint in dorsiflexion with the knee extended without pain or crepitus. Does have full motion of the first metatarsophalangeal joint without pain or crepitus. Dermatologic: There is rubor about the dorsal foot and plantar foot post revascularization on 02/11/2024. There is +3 pitting edema to the left lower extremity. There is a plantar lateral heel ulceration and posterior central heel ulceration just distal to the Achilles insertion. Ulceration base demonstrates mixed fibrogranular tissue. No signs of infection. Skin no rashes or lesions noted, skin turgor normal and no jaundice Neuro moves all extremities Debridement Note Debridement Note Wound debrided: Left foot x 2 Laterality: Left Wound Grade/Stage: Rogel stage I Type of Debridement: Excisional debridement Anesthesia Used: 5% Lidocaine Gel Depth: Down to and including healthy tissue and in the subcutaneous layer Percentage of wound debrided: 100 Instrument Used: 5mm curette Tissue Removed: Fibrous, devitalized subcutaneous, biofilm, slough Severity: Fat Layer Exposed Amount of bleeding with debridement: Mild Bleeding Controlled with: Compression and gauze Patient tolerated procedure: Patient tolerated procedure well Post-Debridement Measurements and Additional Note: Post-Debridement Measurements/Treatment - Nurse 1 - General Ulcer Assessment Start: 02/25/24 10:16 Freq: Status: Active Protocol: TEETEE Activity Type Activity Date Activity User E-sign Co-sign Detail Recorded Client Recorded Date Recorded By Document 02/25/24 10:16 RB wound cemter 02/25/24 10:26 RB 02/25/24 10:16 - Today's Visit Information Type of service Initial Visit Arrival Mode Ambulatory Transfer Assistance None Patient Identification Verified (Name & Yes ) Patient Requires Transmission-Based No Precautions Height and Weight Height 5 ft 6 in Weight 60.781 kg Weight in Pounds 134.0 lbs Body Mass Index (BMI) 21.6 BMI Classification Normal BSA - Isai 1.69 Vital Signs Temperature (97.8 F-99.1 F) 98.7 F Temperature Source Temporal Pulse Rate (60-100) 94 Pulse Location Monitor Respiratory Rate (12-18) 18 Respiratory rate source Observation Blood Pressure (90/60-120/80) 174/65 H Blood Pressure Mean 101 Source Monitor Position Semi-Fowlers Blood Pressure Location Left Arm Pain Scale: 0-10 Numeric Is Patient Pain Free? No L heel -Description Aching -Intensity 3 -Duration (hours) Acute -Pain Behavior Withdrawal from Touch -Pain Aggravating Factors Walking -Alleviating Factors/Interventions Medication -Effectiveness of Alleviating Factor/ Moderately Intervention effective Lower Extremity Assessment/ Foot Assessment/ Toe Nail Assessment Right -Posterior Tibial Palpable No -Dorsalis Pedis Palpable No -Hair Growth on Legs No -Hair Growth on Toes No -Temperature of Extremity Warm -Capillary Refill Less than 3 Seconds -Dependent Rubor No -Blanched when Elevated No -Lipodermatosclerosis No -Other Deformity No -Prior Foot Ulcer No -Charcot Joint No -Prior Amputation No -Thick Yes -Discolored Yes -Deformed Yes -Improper Length & Hygeine Yes Left -Posterior Tibial Palpable No -Dorsalis Pedis Palpable No -Extremity Color Red, Hyperpigmented, Hemosiderin -Hair Growth on Legs No -Hair Growth on Toes No -Temperature of Extremity Warm -Capillary Refill Greater than 3 Seconds -Dependent Rubor No -Blanched when Elevated No -Lipodermatosclerosis No -Other Deformity No -Prior Foot Ulcer No -Charcot Joint No -Prior Amputation No -Thick Yes -Discolored Yes -Deformed Yes -Improper Length & Hygeine Yes Neuropathy Assessment Feet - Top Side and Bottom <Entered> (a) Communication Assessment Preferred language Wolof Educational Coordinator Required No Able to Read Yes Able to Write Yes Communication Tools None Caregiver Communication Skills No Impairment Impairment Right Hearing Abillity Hard of Hearing ,Use of Hearing Aid Left Hearing Abillity Hard of Hearing Visual Assistive Devices Glasses Teaching Assessment Preferences Verbal,Written, Demonstration Barriers to Learning None Readiness To Learn Good Willingness to Engage in Self Management Med Activies Readiness to Engage in Self Management Med Activities Anxiety Level Anxious Cooperation Cooperative Perception Coherent Interest in Health Problem Asks Questions Education Importance Acknowledges Need Does Patient Smoke tobacco or other No substances Smoking Status Former smoker Functional Assessment Recent Decline in Ability to Perform Ambulation, Lower Body Dressing Assistive Device With Patient walker Culture/Pentecostal/Rubber Mold Maker Cultural/Pentecostal Needs that may affect No Treatment Plan Would you allow our hospital field project manager to No meet you for the purpose of spiritual/ emotional support? Rubber Mold Maker to contact place of buddhist No Teaching: Wound Center *Welcome to the Wound Center -Person Taught Patient,Family -Teaching Method Demonstration -Response to teaching Verbalize understanding (a) 1 - _ throughout 2 - + 3 - + 4 - - - Nurse 1 - General Ulcer Measurement Start: 02/25/24 10:16 Freq: Status: Active Protocol: Activity Type Activity Date Activity User E-sign Co-sign Detail Recorded Client Recorded Date Recorded By Document 02/25/24 10:16 RB wound cemter 02/25/24 10:26 RB 02/25/24 10:16 Wound Center Nurse 1 2. L heel posterior -Combined with other wound No -Current Size (cm) - Length 1 -Current Size (cm) - Width 1 -Current Size (cm) - Depth 0.1 -Total Square Cm 1 -Photo Taken Yes -Tunneling No -Undermining/Tunneling No -Circular Undermining No -Exudate Amt Medium -Exudate Type Serosanguineous -Wound Margin Distinct, Outline Attached -Granulation Amt Small (1-33%) -Granulation Quality Kenvir -Slough/Fibrin Yes -Necrotic Tissue Type Adherent Slough -Structure Exposed N/A -Texture (Helen-wound Skin Appearance) Assessed -Moisture (Helen-wound Skin Appearance) Assessed -Color (Helen-wound Skin Appearance) Erythema -Temperature (Helen-wound Skin No Abnormality Appearance) (Pt Warm) -Tenderness on Palpation (Helen-wound No Skin Appearance) -Ulcer Cleansing Wound Cleanser -Foul Odor after Cleansing No -Anesthetic Used 5% Lidocaine Gel 1. L heel lateral -Combined with other wound No -Current Size (cm) - Length 0.8 -Current Size (cm) - Width 0.8 -Current Size (cm) - Depth 0.1 -Total Square Cm 0.64 -Photo Taken Yes -Tunneling No -Undermining/Tunneling No -Circular Undermining No -Exudate Amt Medium -Exudate Type Serosanguineous -Wound Margin Distinct, Outline Attached -Granulation Amt Small (1-33%) -Granulation Quality Kenvir -Slough/Fibrin Yes -Necrosis Amt Large (67-100%) -Necrotic Tissue Type Adherent Slough -Structure Exposed N/A -Texture (Helen-wound Skin Appearance) Assessed -Color (Helen-wound Skin Appearance) Erythema -Temperature (Helen-wound Skin No Abnormality Appearance) (Pt Warm) -Tenderness on Palpation (Helen-wound No Skin Appearance) -Ulcer Cleansing Wound Cleanser -Foul Odor after Cleansing No -Anesthetic Used 5% Lidocaine Gel Lower Limb Edema Present Yes Right Calf (cm) 30 Right Ankle (cm) 22.5 Left Calf (cm) 33.5 Left Ankle (cm) 23 - Nurse 2 - General Ulcer CM Notes Start: 02/25/24 10:16 Freq: Status: Active Protocol: Activity Type Activity Date Activity User E-sign Co-sign Detail Recorded Client Recorded Date Recorded By Document 02/25/24 10:38 [facility] [id number] 02/25/24 10:48 [facility] 02/25/24 10:38 Wound Center Nurse 2 2. L heel posterior -Time 10:40 -Correct Patient Yes -Correct Side, Site, Position Yes -Correct Procedure Yes -Procedure Performed Yes -Type of Procedure Debridement -Clinical Debridement Subcutaneous -Tissue Removed Subcutaneous -Post Debridement (cm) - Length 1 -Post Debridement (cm) - Width 1.5 -Post Debridement (cm) - Depth 0.1 -Total Square (Post) (cm) 1.5 -Area of Debridement (cm) - Length 1 -Area of Debridement (cm) - Width 1.5 -Total Square (Area) (cm) 1.5 -Tunneling No -Undermining/Tunneling No -Circular Undermining No -Wound/Ulcer Outcome Not Healed -Ulcer Cleansing Rinsed/ Irrigated with Saline -Foul Odor after Cleansing No -Bioengineered Tissue No -Bleeding Controlled with Pressure -Treatment Response Procedure Tolerated Well -Debridement - Subq, 1st 20sq cm No 1. L heel lateral -Time 10:40 -Correct Patient Yes -Correct Side, Site, Position Yes -Correct Procedure Yes -Procedure Performed Yes -Type of Procedure Debridement -Clinical Debridement Subcutaneous -Tissue Removed Subcutaneous -Post Debridement (cm) - Length 0.5 -Post Debridement (cm) - Width 0.5 -Post Debridement (cm) - Depth 0.1 -Total Square (Post) (cm) 0.25 -Area of Debridement (cm) - Length 0.5 -Area of Debridement (cm) - Width 0.5 -Total Square (Area) (cm) 0.25 -Tunneling No -Undermining/Tunneling No -Circular Undermining No -Wound/Ulcer Outcome Not Healed -Ulcer Cleansing Rinsed/ Irrigated with Saline -Foul Odor after Cleansing No -Bioengineered Tissue No -Bleeding Controlled with Pressure -Treatment Response Procedure Tolerated Well -Debridement - Subq, 1st 20sq cm Yes Pain Scale: 0-10 Numeric Is Patient Pain Free? Yes Assessment/Plan Assessment/Plan (1) Non-pressure chronic ulcer of other part of left foot with fat layer exposed: CODE(S): L97.522 - Non-pressure chronic ulcer of other part of left foot with fat layer exposed (2) Other specified peripheral vascular diseases: CODE(S): I73.89 - Other specified peripheral vascular diseases (3) COPD (chronic obstructive pulmonary disease): CODE(S): J44.9 - Chronic obstructive pulmonary disease, unspecified QUALIFIERS: COPD type: emphysema Emphysema type: centrilobular Qualified Code(s): J43.2 - Centrilobular emphysema (4) HTN (hypertension): CODE(S): I10 - Essential (primary) hypertension (5) Hypertriglyceridemia: CODE(S): E78.1 - Pure hyperglyceridemia PLAN: Plan Patient seen and evaluated Ulcerations to the left foot underwent debridement as noted in the clinical panel above. Left plantar lateral heel ulceration measures 0.5 cm x 0.5 cm x 0. 1 cm. No signs of infection. Left posterior heel ulceration just distal to the Achilles tendon measures 1.0 cm x 1.5 cm x 0.1 cm. No signs of infection. Colleen applied with dry sterile dressing. Patient and instructed to change dressing daily. Discussed continued elevation of the lower extremities and to limit sodium intake to aid in edema control. Discussed no pressure to be applied to the back of the heel when elevating and may pad with pillows. Also recommended heel protecting offloading waffle boot. Discussed needing to elevate legs if he is sleeping in a recliner. Patient de nies difficulty breathing for the reason of sleeping in the recliner but states it feels more comfortable. Discussed compression stocking once he is healed. Tubigrip compression was applied today. Recommended adequate protein intake to aid in wound healing. Silvino supplementation was also recommended. Discussed signs and symptoms of infection. Discussed if the wound begins to have redness around the foot that spreads up the leg, increasing purulent drainage from the leg, increasing foul odor, or if he experiences fever greater than 101 degrees accompanied by nausea, vomiting, chills that these are signs of a progressing infection and he should report to the ED to receive IV antibiotics and further evaluation. He and his understand this today. The following work up and care recommendations were made: Dressing: Colleen and dry sterile dressing. Change daily Wash: Soap and water Tissue growth optimization: Colleen Offload: Offloading foam waffle boot Vascular: DP and PT pulses are nonpalpable with sluggish capillary fill time bilateral. However patient has undergone left lower extremity angioplasty with bypass graft on 02/11/[address] Jamey Gasca at [facility]. Edema: Limiting sodium intake, Tubigrip compression, elevation of lower extremities Infection: No signs of infection Pain: May take [id number] extra strength Tylenol for pain Host factors: Peripheral vascular disease, edema of the lower extremity, pressure posterior heel I answered all the patient's questions. To return to the wound healing center in 1 week or call sooner if the patient has any questions or concerns.
[2024-03-03 10:40] VITALS: BP 158/70; PULSE 91; RESP 20; TEMP 36.3; BMI 21.6
--- NOTE | 2024-03-03 12:30 | PCM.WC.PN ---
History of Present Illness Date of Service: 03/03/24 Chief Complaint: Left plantar heel and posterior heel ulceration History of Wound: Patient is an 83-year-old male who presents to the wound care center for a nonhealing plantar heel ulcer and posterior heel ulceration of the left foot. Patient states that he sleeps in a recliner with his legs down. He is experiencing lower extremity pain and did follow-up with Dr. Jamey Gasca and underwent angioplasty with bypass graft on 02/11/2024. Patient does have noted COPD and is on 3 L of oxygen. Patient does not wear compression stockings. Patient does usually follow Dr. Hinton and post vascular surgery was referred to the wound center for continuation of his nonhealing ulcerations. Patient denies diabetes. States the ulcerations have been present for 3 months prior to revascularization and they have been treating with Medihoney and dry dressings. states there is periwound maceration following his revascularization. Patient denies N/V/F/chills. Patient denies further complaints. Subjective Subjective This 83-year-old male returns to the wound care center today for follow-up of left heel ulceration x 2. Reports that he cannot tolerate the Tubigrip compression stocking due to pain in the leg. He has had previous vascular surgery with bypass graft with Dr. Gasca in [place], [place] earlier this month. Due to not wearing the recommended light compression stocking his edema has caused dehiscence of his surgical bypass graft site of the left medial extremity. He denies constitutional symptoms. Denies further complaints. Objective Data Objective Data Vital Signs: Vital Signs Temp Pulse Resp BP O2 Del Method O2 Flow Rate 97.3 F L 91 20 H 158/70 H Nasal Cannula 2 03/03/24 10:40 03/03/24 10:40 03/03/24 10:40 03/03/24 10:40 02/25/24 10:16 03/03/24 10:40 Oxygen Flow Rate (L/min) 2 Oxygen Delivery Method Nasal Cannula Weight: 60.781 kg Body Mass Index (BMI) 21.6 Physical Exam Const alert, oriented x3 and no apparent distress General Appearance: cooperative HEENT normocephalic Eyes General Eye: normal appearance of both eyes Neck General: normal visual inspection Lymph Lymphatic: no lymphadenopathy noted and no lymphedema noted Resp normal respiratory effort Cardio regular rate and regular rhythm Extremity no calf tenderness Extremity Narrative: Vascular: DP and PT nonpalpable bilateral. CFT sluggish to digits greater than 5 seconds. Normal temperature gradient. Hair growth is absent to digits bilateral. Neurologic: Epicritic sensation intact. No focal deficits noted. Musculoskeletal: Muscle strength 5 of 5 age-appropriate. There is decreased range of motion of the ankle joint in dorsiflexion with the knee extended without pain or crepitus. Does have full motion of the first metatarsophalangeal joint without pain or crepitus. Dermatologic: There is rubor about the dorsal foot and plantar foot post revascularization on 02/11/2024. There is +3 pitting edema to the left lower extremity. There is a plantar lateral heel ulceration and posterior central heel ulceration just distal to the Achilles insertion. Ulceration secondary to surgical dehiscence of his bypass graft site to the medial left lower extremity. All ulceration bases demonstrates mixed fibrogranular tissue. No signs of infection. Skin no rashes or lesions noted, skin turgor normal and no jaundice Neuro moves all extremities Debridement Note Debridement Note Wound debrided: Left leg Laterality: Left Wound Grade/Stage: Rogel stage I Type of Debridement: Excisional debridement Anesthesia Used: 5% Lidocaine Gel Depth: Down to and including healthy tissue and in the subcutaneous layer Percentage of wound debrided: 100 Instrument Used: 5mm curette Tissue Removed: Fibrous, devitalized subcutaneous, biofilm, slough Severity: Fat Layer Exposed Amount of bleeding with debridement: Mild Bleeding Controlled with: Compression and gauze Patient tolerated procedure: Patient tolerated procedure well Post-Debridement Measurements and Additional Note: Post-Debridement Measurements/Treatment - Nurse 1 - General Ulcer Assessment Start: 02/25/24 10:16 Freq: Status: Active Protocol: TEETEE Activity Type Activity Date Activity User E-sign Co-sign Detail Recorded Client Recorded Date Recorded By Document 02/25/24 10:16 RB wound cemter 02/25/24 10:26 RB Edit Result 02/25/24 10:16 RB (1) wound cemter 02/25/24 12:30 RB Document 03/03/24 10:40 DL [email or web address] 03/03/24 10:52 DL (1) Oxygen Delivery Method => Nasal Cannula O2 L/MIN (L/min) => 2 02/25/24 03/03/24 10:16 10:40 WC - Today's Visit Information Type of service Initial Visit Follow-up Visit (Physician/STEAM TUNNEL FEEDER ) Arrival Mode Ambulatory Ambulatory, Walker Transfer Assistance None None Patient Identification Verified (Name & Yes Yes ) Patient Requires Transmission-Based No No Precautions Height and Weight Height 5 ft 6 in Weight 60.781 kg Weight in Pounds 134.0 lbs Body Mass Index (BMI) 21.6 21.6 BMI Classification Normal Normal BSA - Isai 1.69 Vital Signs Temperature (97.8 F-99.1 F) 98.7 F 97.3 F L Temperature Source Temporal Temporal Pulse Rate (60-100) 94 91 Pulse Location Monitor Monitor Respiratory Rate (12-18) 18 20 H Respiratory rate source Observation Observation Oxygen Delivery Method Nasal Cannula O2 L/MIN (L/min) 2 2 Blood Pressure (90/60-120/80) 174/65 H 158/70 H Blood Pressure Mean (mm Hg) 101 99 Source Monitor Monitor Position Semi-Fowlers Blood Pressure Location Left Arm History Since Last Visit- (Skip if this is Patient's initial visit) Have you changed medications since your No last visit? Any new allergies or adverse reactions No Had a fall/change in ADL's that may No increase risk of falls Signs or symptoms of abuse and/or No neglect since last visit Have you been in the hospital since your No last visit? Has dressing in place as prescribed Yes Has compression in place as prescribed Yes Has offloadiing in place as prescribed N/A Experienced any changes in pain level or No management Pain Scale: 0-10 Numeric Is Patient Pain Free? No Yes L heel -Description Aching -Intensity 3 -Duration (hours) Acute -Pain Behavior Withdrawal from Touch -Pain Aggravating Factors Walking -Alleviating Factors/Interventions Medication -Effectiveness of Alleviating Factor/ Moderately Intervention effective Lower Extremity Assessment/ Foot Assessment/ Toe Nail Assessment Right -Posterior Tibial Palpable No -Dorsalis Pedis Palpable No -Hair Growth on Legs No -Hair Growth on Toes No -Temperature of Extremity Warm -Capillary Refill Less than 3 Seconds -Dependent Rubor No -Blanched when Elevated No -Lipodermatosclerosis No -Other Deformity No -Prior Foot Ulcer No -Charcot Joint No -Prior Amputation No -Thick Yes -Discolored Yes -Deformed Yes -Improper Length & Hygeine Yes Left -Posterior Tibial Palpable No -Dorsalis Pedis Palpable No -Extremity Color Red, Hyperpigmented, Hemosiderin -Hair Growth on Legs No -Hair Growth on Toes No -Temperature of Extremity Warm -Capillary Refill Greater than 3 Seconds -Dependent Rubor No -Blanched when Elevated No -Lipodermatosclerosis No -Other Deformity No -Prior Foot Ulcer No -Charcot Joint No -Prior Amputation No -Thick Yes -Discolored Yes -Deformed Yes -Improper Length & Hygeine Yes Neuropathy Assessment Feet - Top Side and Bottom <Entered> (a) Communication Assessment Preferred language Green[place]ic Cosmetology Professor Required No Able to Read Yes Able to Write Yes Communication Tools None Caregiver Communication Skills No Impairment Impairment Right Hearing Abillity Hard of Hearing ,Use of Hearing Aid Left Hearing Abillity Hard of Hearing Visual Assistive Devices Glasses Teaching Assessment Preferences Verbal,Written, Demonstration Barriers to Learning None Readiness To Learn Good Willingness to Engage in Self Management Med Activies Readiness to Engage in Self Management Med Activities Anxiety Level Anxious Cooperation Cooperative Perception Coherent Interest in Health Problem Asks Questions Education Importance Acknowledges Need Does Patient Smoke tobacco or other No substances Smoking Status Former smoker Functional Assessment Recent Decline in Ability to Perform Ambulation, Lower Body Dressing Assistive Device With Patient walker Culture/Presybeterian/Allied Health Professional Cultural/Presybeterian Needs that may affect No Treatment Plan Would you allow our hospital bellman captain to No meet you for the purpose of spiritual/ emotional support? Allied Health Professional to contact place of latter day No Teaching: Wound Center *Welcome to the Wound Center -Person Taught Patient,Family -Teaching Method Demonstration -Response to teaching Verbalize understanding (a) 1 - _ throughout 2 - + 3 - + 4 - - - Nurse 1 - General Ulcer Measurement Start: 02/25/24 10:16 Freq: Status: Active Protocol: Activity Type Activity Date Activity User E-sign Co-sign Detail Recorded Client Recorded Date Recorded By Document 02/25/24 10:16 RB wound cemter 02/25/24 10:26 RB Edit Result 02/25/24 10:16 RB (1) wound cemter 02/25/24 12:30 RB Document 03/03/24 10:40 DL [email or web address] 03/03/24 10:52 DL (1) 2. L heel posterior - Wound Comment(s) => LLE near ankle incision noted and well approximated. 05/23/24 05/30/24 10:16 10:40 Wound Center Nurse 1 2. L heel posterior -Combined with other wound No -Current Size (cm) - Length 1 1.2 -Current Size (cm) - Width 1 1.2 -Current Size (cm) - Depth 0.1 0.1 -Total Square Cm 1 1.44 -Photo Taken Yes -Tunneling No -Undermining/Tunneling No -Circular Undermining No -Exudate Amt Medium Medium -Exudate Type Serosanguineous Serosanguineous -Wound Margin Distinct, Distinct, Outline Outline Attached Attached -Granulation Amt Small (1-33%) None Present (0 %) -Granulation Quality [place] -Slough/Fibrin Yes -Necrosis Amt Large (67-100%) -Necrotic Tissue Type Adherent Slough Adherent Slough -Structure Exposed N/A N/A -Texture (Helen-wound Skin Appearance) Assessed Localized Edema ,Scarring -Moisture (Hleen-wound Skin Appearance) Assessed Maceration -Color (Helen-wound Skin Appearance) Erythema No Abnormality -Temperature (Helen-wound Skin No Abnormality No Abnormality Appearance) (Pt Warm) (Pt Warm) -Tenderness on Palpation (Helen-wound No Skin Appearance) -Ulcer Cleansing Wound Cleanser Soap and Water -Foul Odor after Cleansing No No -Anesthetic Used 5% Lidocaine 5% Lidocaine Gel Gel -Wound Comment(s) LLE near ankle incision noted and well approximated. 1. L heel lateral -Combined with other wound No -Current Size (cm) - Length 0.8 3.3 -Current Size (cm) - Width 0.8 0.7 -Current Size (cm) - Depth 0.1 0.1 -Total Square Cm 0.64 2.31 -Photo Taken Yes -Tunneling No -Undermining/Tunneling No -Circular Undermining No -Exudate Amt Medium Large -Exudate Type Serosanguineous Serosanguineous -Wound Margin Distinct, Distinct, Outline Outline Attached Attached -Granulation Amt Small (1-33%) Medium (34-66%) -Granulation Quality [place] -Slough/Fibrin Yes -Necrosis Amt Large (67-100%) Medium (34-66%) -Necrotic Tissue Type Adherent Slough Adherent Slough -Structure Exposed N/A N/A -Texture (Helen-wound Skin Appearance) Assessed Localized Edema ,Scarring -Moisture (Helen-wound Skin Appearance) Maceration -Color (Helen-wound Skin Appearance) Erythema No Abnormality -Temperature (Helen-wound Skin No Abnormality No Abnormality Appearance) (Pt Warm) (Pt Warm) -Tenderness on Palpation (Helen-wound No No Skin Appearance) -Ulcer Cleansing Wound Cleanser Soap and Water -Foul Odor after Cleansing No No -Anesthetic Used 5% Lidocaine 5% Lidocaine Gel Gel Lower Limb Edema Present Yes Right Calf (cm) 30 Right Ankle (cm) 22.5 Point of Measurement (cm from the distal 33.3 point) Left Calf (cm) 33.5 Point of measurement (cm from the medial 22.8 instep) Left Ankle (cm) 23 WC - Nurse 2 - General Ulcer CM Notes Start: 02/25/24 10:16 Freq: Status: Active Protocol: Activity Type Activity Date Activity User E-sign Co-sign Detail Recorded Client Recorded Date Recorded By Document 02/25/24 10:38 [facility] [id number] 02/25/24 10:48 [facility] Document 03/03/24 11:07 [facility] 03/03/24 11:21 [facility] 02/25/24 03/03/24 10:38 11:07 Wound Center Nurse 2 #3 L MEDIAL LE -Time 11:08 -Correct Patient Yes -Correct Side, Site, Position Yes -Correct Procedure Yes -Procedure Performed Yes -Type of Procedure Debridement -Clinical Debridement Subcutaneous -Tissue Removed Subcutaneous -Post Debridement (cm) - Length 7.3 -Post Debridement (cm) - Width 1.5 -Post Debridement (cm) - Depth 0.1 -Total Square (Post) (cm) 10.95 -Area of Debridement (cm) - Length 7.3 -Area of Debridement (cm) - Width 1.5 -Total Square (Area) (cm) 10.95 -Tunneling No -Undermining/Tunneling No -Circular Undermining No -Wound/Ulcer Outcome Not Healed -Ulcer Cleansing Rinsed/ Irrigated with Saline -Foul Odor after Cleansing No -Bioengineered Tissue No -Bleeding Controlled with Pressure -Treatment Response Procedure Tolerated Well -Offloading No -Debridement - Subq, 1st 20sq cm Yes 2. L heel posterior -Time 10:40 11:07 -Correct Patient Yes Yes -Correct Side, Site, Position Yes Yes -Correct Procedure Yes Yes -Procedure Performed Yes Yes -Type of Procedure Debridement Debridement -Clinical Debridement Subcutaneous Subcutaneous -Tissue Removed Subcutaneous Subcutaneous -Post Debridement (cm) - Length 1 1.4 -Post Debridement (cm) - Width 1.5 1.5 -Post Debridement (cm) - Depth 0.1 0.1 -Total Square (Post) (cm) 1.5 2.10 -Area of Debridement (cm) - Length 1 1.4 -Area of Debridement (cm) - Width 1.5 1.5 -Total Square (Area) (cm) 1.5 2.10 -Tunneling No No -Undermining/Tunneling No No -Circular Undermining No No -Wound/Ulcer Outcome Not Healed Not Healed -Ulcer Cleansing Rinsed/ Rinsed/ Irrigated with Irrigated with Saline Saline -Foul Odor after Cleansing No No -Bioengineered Tissue No No -Bleeding Controlled with Pressure Pressure -Treatment Response Procedure Procedure Tolerated Well Tolerated Well -Offloading No -Debridement - Subq, 1st 20sq cm No Yes 1. L heel lateral -Time 10:40 11:09 -Correct Patient Yes Yes -Correct Side, Site, Position Yes Yes -Correct Procedure Yes Yes -Procedure Performed Yes Yes -Type of Procedure Debridement Debridement -Clinical Debridement Subcutaneous Subcutaneous -Tissue Removed Subcutaneous Subcutaneous -Post Debridement (cm) - Length 0.5 1.2 -Post Debridement (cm) - Width 0.5 0.8 -Post Debridement (cm) - Depth 0.1 0.1 -Total Square (Post) (cm) 0.25 0.96 -Area of Debridement (cm) - Length 0.5 1.2 -Area of Debridement (cm) - Width 0.5 0.8 -Total Square (Area) (cm) 0.25 0.96 -Tunneling No No -Undermining/Tunneling No No -Circular Undermining No No -Wound/Ulcer Outcome Not Healed Not Healed -Ulcer Cleansing Rinsed/ Rinsed/ Irrigated with Irrigated with Saline Saline -Foul Odor after Cleansing No No -Bioengineered Tissue No No -Bleeding Controlled with Pressure Pressure -Treatment Response Procedure Procedure Tolerated Well Tolerated Well -Debridement - Subq, 1st 20sq cm Yes No Pain Scale: 0-10 Numeric Is Patient Pain Free? Yes Yes WC - Nurse 3 - General Ulcer D/C NN Start: 02/25/24 10:16 Freq: Status: Active Protocol: Activity Type Activity Date Activity User E-sign Co-sign Detail Recorded Client Recorded Date Recorded By Document 02/25/24 12:27 RB wound cemter 02/25/24 12:29 RB Document 03/03/24 11:26 DL [email or web address] 03/03/24 11:28 DL 02/25/24 03/03/24 12:27 11:26 Wound Care Center Nurse 3 #3 L MEDIAL LE -Ulcer Cleansing Soap and Water -Foul Odor after Cleansing No -Other Dressing Hydrogel today -Primary Dressing Covered/Secured with Dry Gauze & Roll Gauze, Secured with Tape 2. L heel posterior -Ulcer Cleansing Rinsed/ Rinsed/ Irrigated with Irrigated with Saline Saline -Foul Odor after Cleansing No -Primary Dressing Applied Mepilex Border, Promogran Colleen Matter -Other Dressing hydrogel today -Primary Dressing Covered/Secured with Dry Gauze & Roll Gauze, Secured with Tape -Mepilex Border 1 -Promogran Colleen Matter 1 1. L heel lateral -Ulcer Cleansing Rinsed/ Rinsed/ Irrigated with Irrigated with Saline Saline -Foul Odor after Cleansing No -Primary Dressing Applied Mepilex Border, Promogran Colleen Matter -Other Dressing hydrogel today -Primary Dressing Covered/Secured with Dry Gauze & Roll Gauze, Secured with Tape -Mepilex Border 1 -Promogran Colleen Matter 1 -Wound Comment(s) Pt to start Santyl when available, hydrogel for now Left -Tubular Bandage Single Layer Single Layer -Size of Tubigrip Used Size D Size D -Size D ($) 1 1 Treatment Response Procedure Procedure Tolerated Well Tolerated Well Pain Scale: 0-10 Numeric Is Patient Pain Free? No Yes L heel -Description Aching -Intensity 3 -Duration (hours) Acute -Pain Behavior Withdrawal from Touch -Pain Aggravating Factors Exercise/ Activity -Alleviating Factors/Interventions Medication -Effectiveness of Alleviating Factor/ Moderately Intervention effective WC - Visit Discharge Discharge Condition Stable Stable Ambulatory Status Ambulatory, Ambulatory, Walker Walker Transportation Private Auto Private Auto Medication Reconcilliation completed & No provided to patient/care provider Clinical Summary of Care Provided Yes Additional Wound Wound debrided: Left heel x 2 Laterality: Left Wound Grade/Stage: Rogel stage I Type of Debridement: Excisional debridement Anesthesia Used: 5% Lidocaine Gel Depth: Down to and including healthy tissue and in the subcutaneous layer Percentage of wound debrided: 100 Instrument Used: 5mm curette Tissue Removed: Fibrous, devitalized subcutaneous, biofilm, slough Severity: Fat Layer Exposed Amount of bleeding with debridement: Mild Bleeding Controlled with: Compression and gauze Patient tolerated procedure: Patient tolerated procedure well Assessment/Plan Assessment/Plan (1) Non-pressure chronic ulcer of other part of left foot with fat layer exposed: CODE(S): L97.522 - Non-pressure chronic ulcer of other part of left foot with fat layer exposed (2) Other specified peripheral vascular diseases: CODE(S): I73.89 - Other specified peripheral vascular diseases (3) COPD (chronic obstructive pulmonary disease): CODE(S): J44.9 - Chronic obstructive pulmonary disease, unspecified QUALIFIERS: COPD type: emphysema Emphysema type: centrilobular Qualified Code(s): J43.2 - Centrilobular emphysema (4) HTN (hypertension): CODE(S): I10 - Essential (primary) hypertension (5) Hypertriglyceridemia: CODE(S): E78.1 - Pure hyperglyceridemia PLAN: Plan Patient seen and evaluated Ulcerations to the left foot underwent debridement as noted in the clinical panel above. Left plantar lateral heel ulceration measures 1.2 cm x 0.8 cm x 0.1 cm. No signs of infection. Left posterior heel ulceration just distal to the Achilles tendon measures 1.4 cm x 1.5 cm x 0.1 cm. Left medial leg surgical dehiscence measuring 7.3 cm x 1.5 cm x 0.1 cm. No signs of infection. Colleen applied with dry sterile dressing today. Rx Santyl to be applied to the ulcerative sites. Patient and instructed to change dressing daily. Ulcerations have increased in size versus previous visit. He will be seeing Dr. Jamey Gasca for vascular follow-up 03/09/2024. Will apply for TheraSkin for applications following enzymatic debridement with Santyl. Discussed continued elevation of the lower extremities and to limit sodium intake to aid in edema control. Discussed no pressure to be applied to the back of the heel when elevating and may pad with pillows. Also recommended heel protecting offloading waffle boot. Discussed needing to elevate legs if he is sleeping in a recliner. Patient denies difficulty breathing for the reason of sleeping in the recliner but states it feels more comfortable. Discussed compression stocking once he is healed. Tubigrip compression was applied today. Discussed that he has to wear the Tubigrip compression as he does have edema in the leg which has caused dehiscence of his previous surgical incision site for his bypass graft. Recommended adequate protein intake to aid in wound healing. Silvino supplementation was also recommended. Discussed signs and symptoms of infection. Discussed if the wound begins to have redness around the foot that spreads up the leg, increasing purulent drainage from the leg, increasing foul odor, or if he experiences fever greater than 101 degrees accompanied by nausea, vomiting, chills that these are signs of a progressing infection and he should report to the ED to receive IV antibiotics and further evaluation. He and his understand this today. The following work up and care recommendations were made: Dressing: Santyl and dry sterile dressing. Change daily Wash: Soap and water Tissue growth optimization: Santyl Offload: Offloading foam waffle boot Vascular: DP and PT pulses are nonpalpable with sluggish capillary fill time bilateral. However patient has undergone left lower extremity angioplasty with bypass graft on 02/11/[address] Jamey Gasca at [place]. Edema: Limiting sodium intake, Tubigrip compression, elevation of lower extremities Infection: No signs of infection Pain: May take [id number] extra strength Tylenol for pain Host factors: Peripheral vascular disease, edema of the lower extremity, pressure posterior heel I answered all the patient's questions. To return to the wound healing center in 1 week or call sooner if the patient has any questions or concerns.
--- NOTE | 2024-03-08 08:35 | WC ---
03/03/2024 (I) LEFT MEDIAL LE
== END 2024-03-04 23:59 | disposition home or self-care (01) ==
LOC: WC 10:30
PROVIDERS: PCP Internal Medicine; Referring Provider Internal Medicine; Visit Provider Student in an Organized Health Care Education/Training Program
DX: L97.522 Non-pressure chronic ulcer of other part of left foot with fat layer exposed (principal); L97.422 Non-pressure chronic ulcer of left heel and midfoot with fat layer exposed; J43.2 Centrilobular emphysema; I73.9 Peripheral vascular disease, unspecified; Z79.51 Long term (current) use of inhaled steroids; G62.9 Polyneuropathy, unspecified; R60.0 Localized edema; E78.1 Pure hyperglyceridemia; Z79.02 Long term (current) use of antithrombotics/antiplatelets; Z87.891 Personal history of nicotine dependence; I10 Essential (primary) hypertension
CPT/HCPCS: 11042; 97597; 99214; G0463

== ENCOUNTER 2024-03-10 10:20 | Outpatient (RCR) | payer MEDICARE, SELFPAY ==
[2024-03-05 02:39] VITALS: BP 158/70; PULSE 91; RESP 20; TEMP 36.3; BMI 21.6
[2024-03-10 10:54] VITALS: BP 164/64; PULSE 102; RESP 20; TEMP 36.3; BMI 21.6
--- NOTE | 2024-03-10 13:24 | PCM.WC.PN ---
History of Present Illness Date of Service: 03/10/24 Chief Complaint: Left plantar heel and posterior heel ulceration History of Wound: Patient is an 83-year-old male who presents to the wound care center for a nonhealing plantar heel ulcer and posterior heel ulceration of the left foot. Patient states that he sleeps in a recliner with his legs down. He is experiencing lower extremity pain and did follow-up with Dr. Jamey Gasca and underwent angioplasty with bypass graft on 02/11/2024. Patient does have noted COPD and is on 3 L of oxygen. Patient does not wear compression stockings. Patient does usually follow Dr. Hinton and post vascular surgery was referred to the wound center for continuation of his nonhealing ulcerations. Patient denies diabetes. States the ulcerations have been present for 3 months prior to revascularization and they have been treating with Medihoney and dry dressings. states there is periwound maceration following his revascularization. Patient denies N/V/F/chills. Patient denies further complaints. Subjective Subjective This 83-year-old male returns to the wound care center today for follow-up of left heel ulceration x 2. Reports that he cannot tolerate the Tubigrip compression stocking due to pain in the leg. He has had previous vascular surgery with bypass graft with Dr. Gasca in [place], [place] earlier this month. States that he did meet again with Dr. Gasca who suggests vascular revision as he is likely occluded his previous vascular surgery from early February. Patient states they will be scheduled soon for revision angioplasty. His edema has caused dehiscence of his surgical bypass graft site of the left medial extremity. They have been applying Santyl to all wound sites daily. He denies constitutional symptoms. Denies further complaints. Objective Data Objective Data Vital Signs: Vital Signs Temp Pulse Resp BP O2 Flow Rate 97.3 F L 102 H 20 H 164/64 H 2 03/10/24 10:54 03/10/24 10:54 03/10/24 10:54 03/10/24 10:54 03/10/24 10:54 Oxygen Flow Rate (L/min) 2 Weight: 60.781 kg Body Mass Index (BMI) 21.6 Physical Exam Const alert, oriented x3 and no apparent distress General Appearance: cooperative HEENT normocephalic Eyes General Eye: normal appearance of both eyes Neck General: normal visual inspection Lymph Lymphatic: no lymphadenopathy noted and no lymphedema noted Resp normal respiratory effort Cardio regular rate and regular rhythm Extremity no calf tenderness Extremity Narrative: Vascular: DP and PT nonpalpable bilateral. CFT sluggish to digits greater than 5 seconds. Normal temperature gradient. Hair growth is absent to digits bilateral. Neurologic: Epicritic sensation intact. No focal deficits noted. Musculoskeletal: Muscle strength 5 of 5 age-appropriate. There is decreased range of motion of the ankle joint in dorsiflexion with the knee extended without pain or crepitus. Does have full motion of the first metatarsophalangeal joint without pain or crepitus. Dermatologic: There is rubor about the dorsal foot and plantar foot post revascularization on 02/11/2024. There is +3 pitting edema to the left lower extremity. There is a plantar lateral heel ulceration and posterior central heel ulceration just distal to the Achilles insertion. Ulceration secondary to surgical dehiscence of his bypass graft site to the medial left lower extremity. All ulceration bases demonstrates thickened yellow fibrous tissue. No signs of infection. Skin no rashes or lesions noted, skin turgor normal and no jaundice Neuro moves all extremities Debridement Note Debridement Note Wound debrided: Left medial lower leg Laterality: Left Wound Grade/Stage: Rogel stage I Type of Debridement: Excisional debridement Anesthesia Used: 5% Lidocaine Gel Depth: Down to and including healthy tissue and in the subcutaneous layer Percentage of wound debrided: 100 Instrument Used: 5mm curette Tissue Removed: Fibrous, devitalized subcutaneous, biofilm, slough Severity: Fat Layer Exposed Amount of bleeding with debridement: Mild Bleeding Controlled with: Compression and gauze Patient tolerated procedure: Patient tolerated procedure well Post-Debridement Measurements and Additional Note: Post-Debridement Measurements/Treatment - Nurse 1 - General Ulcer Assessment Start: 03/10/24 10:50 Freq: Status: Active Protocol: TEETEE Activity Type Activity Date Activity User E-sign Co-sign Detail Recorded Client Recorded Date Recorded By Document 03/10/24 10:54 DL [email or web address] 03/10/24 11:06 DL 03/10/24 10:54 - Today's Visit Information Type of service Follow-up Visit (Physician/[facility] ) Arrival Mode Ambulatory, Walker Transfer Assistance None Patient Identification Verified (Name & Yes ) Patient Requires Transmission-Based No Precautions Height and Weight Body Mass Index (BMI) 21.6 BMI Classification Normal Vital Signs Temperature (97.8 F-99.1 F) 97.3 F L Temperature Source Temporal Pulse Rate (60-100) 102 H Pulse Location Monitor Respiratory Rate (12-18) 20 H Respiratory rate source Observation O2 L/MIN (L/min) 2 Blood Pressure (90/60-120/80) 164/64 H Blood Pressure Mean (mm Hg) 97 Source Monitor History Since Last Visit- (Skip if this is Patient's initial visit) Have you changed medications since your No last visit? Any new allergies or adverse reactions No Had a fall/change in ADL's that may No increase risk of falls Signs or symptoms of abuse and/or No neglect since last visit Have you been in the hospital since your No last visit? Has dressing in place as prescribed Yes Has compression in place as prescribed Yes Has offloadiing in place as prescribed No Experienced any changes in pain level or No management Left Footwear Regular Shoe Right Footwear Regular Shoe Pain Scale: 0-10 Numeric Is Patient Pain Free? Yes WC - Nurse 1 - General Ulcer Measurement Start: 03/10/24 10:50 Freq: Status: Active Protocol: Activity Type Activity Date Activity User E-sign Co-sign Detail Recorded Client Recorded Date Recorded By Document 03/10/24 10:54 DL [email or web address] 03/10/24 11:06 DL 03/10/24 10:54 Wound Center Nurse 1 #3 L MEDIAL LE -Current Size (cm) - Length 7 -Current Size (cm) - Width 1 -Current Size (cm) - Depth 0.1 -Total Square Cm 7 -Exudate Amt Small -Wound Margin Distinct, Outline Attached -Granulation Amt None Present (0 %) -Necrosis Amt Large (67-100%) -Necrotic Tissue Type Adherent Slough -Structure Exposed N/A -Texture (Helen-wound Skin Appearance) Localized Edema ,Scarring -Moisture (Helen-wound Skin Appearance) Dry/Scaly -Color (Helen-wound Skin Appearance) Mottled -Temperature (Helen-wound Skin No Abnormality Appearance) (Pt Warm) -Tenderness on Palpation (Helen-wound No Skin Appearance) -Anesthetic Used 5% Lidocaine Gel 2. L heel posterior -Current Size (cm) - Length 1.2 -Current Size (cm) - Width 1.2 -Current Size (cm) - Depth 0.1 -Total Square Cm 1.44 -Exudate Amt Medium -Exudate Type Serosanguineous -Wound Margin Distinct, Outline Attached -Granulation Amt None Present (0 %) -Necrosis Amt Large (67-100%) -Necrotic Tissue Type Adherent Slough -Structure Exposed N/A -Texture (Helen-wound Skin Appearance) Scarring -Moisture (Helen-wound Skin Appearance) Dry/Scaly -Color (Helen-wound Skin Appearance) Erythema, Mottled -Temperature (Helen-wound Skin No Abnormality Appearance) (Pt Warm) -Tenderness on Palpation (Helen-wound No Skin Appearance) -Ulcer Cleansing Soap and Water -Foul Odor after Cleansing No -Anesthetic Used 5% Lidocaine Gel 1. L heel lateral cluster -Current Size (cm) - Length 2.5 -Current Size (cm) - Width 2.5 -Current Size (cm) - Depth 0.1 -Total Square Cm 6.25 -Exudate Amt Medium -Exudate Type Serosanguineous -Wound Margin Distinct, Outline Attached -Granulation Amt None Present (0 %) -Necrosis Amt Large (67-100%) -Necrotic Tissue Type Adherent Slough -Structure Exposed N/A -Texture (Helen-wound Skin Appearance) Scarring -Moisture (Helen-wound Skin Appearance) Dry/Scaly -Color (Helen-wound Skin Appearance) Erythema, Mottled -Temperature (Helen-wound Skin No Abnormality Appearance) (Pt Warm) -Tenderness on Palpation (Helen-wound No Skin Appearance) -Ulcer Cleansing Soap and Water -Foul Odor after Cleansing No -Anesthetic Used 5% Lidocaine Gel Left Calf (cm) 30.2 Left Ankle (cm) 22.6 WC - Nurse 2 - General Ulcer CM Notes Start: 03/10/24 10:50 Freq: Status: Active Protocol: Activity Type Activity Date Activity User E-sign Co-sign Detail Recorded Client Recorded Date Recorded By Document 03/10/24 11:11 [facility] 03/10/24 11:19 [facility] 03/10/24 11:11 Wound Center Nurse 2 #3 L MEDIAL LE -Time 11:12 -Correct Patient Yes -Correct Side, Site, Position Yes -Correct Procedure Yes -Procedure Performed Yes -Type of Procedure Debridement -Clinical Debridement Subcutaneous -Tissue Removed Subcutaneous -Post Debridement (cm) - Length 7.1 -Post Debridement (cm) - Width 1 -Post Debridement (cm) - Depth 0.1 -Total Square (Post) (cm) 7.1 -Area of Debridement (cm) - Length 7 -Area of Debridement (cm) - Width 1 -Total Square (Area) (cm) 7 -Wound/Ulcer Outcome Not Healed -Ulcer Cleansing Rinsed/ Irrigated with Saline -Foul Odor after Cleansing No -Bioengineered Tissue No -Bleeding Controlled with Pressure -Treatment Response Procedure Tolerated Well -Debridement - Subq, 1st 20sq cm Yes 2. L heel posterior -Post Debridement (cm) - Length 1.4 -Post Debridement (cm) - Width 1.4 -Post Debridement (cm) - Depth 0.1 -Total Square (Post) (cm) 1.96 -Area of Debridement (cm) - Length 1.4 -Area of Debridement (cm) - Width 1.4 -Total Square (Area) (cm) 1.96 -Tunneling No -Undermining/Tunneling No -Circular Undermining No -Wound/Ulcer Outcome Not Healed -Bleeding Controlled with NA 1. L heel lateral cluster -Time 11:12 -Post Debridement (cm) - Length 0.8 -Post Debridement (cm) - Width 0.8 -Post Debridement (cm) - Depth 0.1 -Total Square (Post) (cm) 0.64 -Area of Debridement (cm) - Length 0.8 -Area of Debridement (cm) - Width 0.8 -Total Square (Area) (cm) 0.64 -Tunneling No -Undermining/Tunneling No -Wound/Ulcer Outcome Not Healed -Bleeding Controlled with NA Pain Scale: 0-10 Numeric Is Patient Pain Free? Yes WC - Nurse 3 - General Ulcer D/C NN Start: 03/10/24 10:50 Freq: Status: Active Protocol: Activity Type Activity Date Activity User E-sign Co-sign Detail Recorded Client Recorded Date Recorded By Document 03/10/24 11:39 DL [email or web address] 03/10/24 11:41 DL 03/10/24 11:39 Wound Care Center Nurse 3 #3 L MEDIAL LE -Ulcer Cleansing Rinsed/ Irrigated with Saline -Foul Odor after Cleansing No -Other Dressing SANTYL -Primary Dressing Covered/Secured with Dry Gauze & Roll Gauze, Secured with Tape 2. L heel posterior -Ulcer Cleansing Rinsed/ Irrigated with Saline -Foul Odor after Cleansing No -Other Dressing SANTYL -Primary Dressing Covered/Secured with Dry Gauze & Roll Gauze, Secured with Tape -Other Covering NURSES HAT 1. L heel lateral cluster -Ulcer Cleansing Rinsed/ Irrigated with Saline -Foul Odor after Cleansing No -Other Dressing SANTYL -Primary Dressing Covered/Secured with Dry Gauze & Roll Gauze, Secured with Tape -Other Covering NURSES HAT Left -Tubular Bandage Single Layer -Size of Tubigrip Used Size D -Size D ($) 1 Treatment Response Procedure Tolerated Well Pain Scale: 0-10 Numeric Is Patient Pain Free? Yes WC - Visit Discharge Discharge Condition Stable Ambulatory Status Ambulatory Transportation Private Auto Assessment/Plan Assessment/Plan (1) Non-pressure chronic ulcer of other part of left foot with fat layer exposed: CODE(S): L97.522 - Non-pressure chronic ulcer of other part of left foot with fat layer exposed (2) Non-pressure chronic ulcer of left calf with fat layer exposed: CODE(S): L97.222 - Non-pressure chronic ulcer of left calf with fat layer exposed (3) Other specified peripheral vascular diseases: CODE(S): I73.89 - Other specified peripheral vascular diseases (4) HTN (hypertension): CODE(S): I10 - Essential (primary) hypertension (5) Hypertriglyceridemia: CODE(S): E78.1 - Pure hyperglyceridemia (6) Stage 3 severe COPD by GOLD classification: CODE(S): J44.9 - Chronic obstructive pulmonary disease, unspecified (7) Disruption of internal operation (surgical) wound, not elsewhere classified, initial encounter: CODE(S): T81.32XA - Disruption of internal operation (surgical) wound, not elsewhere classified, initial encounter PLAN: Plan Patient seen and evaluated Ulcerations to the left foot underwent debridement as noted in the clinical panel above. Left plantar lateral heel ulceration measures 0.8 cm x 0.8 cm x 0.1 cm. No signs of infection. Left posterior heel ulceration just distal to the Achilles tendon measures 1.4 cm x 1.4 cm x 0.1 cm. Left medial leg surgical dehiscence measuring 7.1 cm x 1.1 cm x 0.1 cm. No signs of infection. Rx Santyl was applied to the ulcerative sites. Patient and instructed to change dressing daily. Ulcerations have slight decrease in size versus previous visit. He did see Dr. Jamey Gasca for vascular follow-up 03/09/2024, and it was recommended he undergo another angioplasty as he is likely occluded his previous vascular surgery from February. I discussed with him stopping further debridement and continuing forward with Santyl only until vascular intervention can take place. Will apply for TheraSkin for applications following enzymatic debridement with Santyl and revascularization. Discussed continued elevation of the lower extremities and to limit sodium intake to aid in edema control. Discussed no pressure to be applied to the back of the heel when elevating and may pad with pillows. Also recommended heel protecting offloading waffle boot. Discussed needing to elevate legs if he is sleeping in a recliner. Patient denies difficulty breathing for the reason of sleeping in the recliner but states it feels more comfortable. Discussed compression stocking once he is healed. Tubigrip compression was applied today. Discussed that he has to wear the Tubigrip compression as he does have edema in the leg which has caused dehiscence of his previous surgical incision site for his bypass graft. Recommended adequate protein intake to aid in wound healing. Silvino supplementation was also recommended. Discussed signs and symptoms of infection. Discussed if the wound begins to have redness around the foot that spreads up the leg, increasing purulent drainage from the leg, increasing foul odor, or if he experiences fever greater than 101 degrees accompanied by nausea, vomiting, chills that these are signs of a progressing infection and he should report to the ED to receive IV antibiotics and further evaluation. He and his understand this today. The following work up and care recommendations were made: Dressing: Santyl and dry sterile dressing. Change daily Wash: Soap and water Tissue growth optimization: Santyl Offload: Offloading foam waffle boot Vascular: DP and PT pulses are nonpalpable with sluggish capillary fill time bilateral. However patient has undergone left lower extremity angioplasty with bypass graft on 02/11/[address] Jamey Gasca at [place]. Edema: Limiting sodium intake, Tubigrip compression, elevation of lower extremities Infection: No signs of infection Pain: May take [id number] extra strength Tylenol for pain Host factors: Peripheral vascular disease, edema of the lower extremity, pressure posterior heel I answered all the patient's questions. To return to the wound healing center in 2 weeks or call sooner if the patient has any questions or concerns.
--- NOTE | 2024-03-10 15:03 | WC ---
DISCUSSED THERASKIN VERIFICATION RESPONSE AND POTENTIAL COPAYS W/ PATIENT AND TODAY. DR BURGER WAITING TO APPLY UNTIL AFTER NEXT PROCEDURE W/ DR VÁZQUEZ(VASCULAR). ADVISED PT AND TO CALL INSURANCE OR HOSPITAL BILLING FOR MORE DETAILS ON POTENTIAL COST. BOTH AGREEABLE.
== END 2024-04-03 23:59 | disposition home or self-care (01) ==
LOC: WC 10:20
PROVIDERS: PCP Internal Medicine; Referring Provider Internal Medicine; Visit Provider Student in an Organized Health Care Education/Training Program
DX: L97.522 Non-pressure chronic ulcer of other part of left foot with fat layer exposed (principal); L97.222 Non-pressure chronic ulcer of left calf with fat layer exposed; J44.9 Chronic obstructive pulmonary disease, unspecified; Z99.81 Dependence on supplemental oxygen; I73.89 Other specified peripheral vascular diseases; I10 Essential (primary) hypertension; E78.1 Pure hyperglyceridemia; T81.32XA Disruption of internal operation (surgical) wound, not elsewhere classified, initial encounter
CPT/HCPCS: 11042

== ENCOUNTER 2024-03-23 20:36 | Emergency (ER) | payer MEDICARE, SELFPAY ==
[2024-03-23 20:37] VITALS: BP 157/55; PULSE 90; RESP 18; TEMP 36.6; O2SAT 93
[2024-03-23 21:06] LABS: Bacteria 0 SEEN /hpf (None Seen); Red Blood Cells-Urine 0 SEEN /hpf (0-5)
[2024-03-23 21:24] LABS: Glucose, Dipstick Normal (Normal); Ketone-Dipstick Negative (Negative); Leukocyte Esterase-Dipstick Negative /ul (Negative); Nitrite-Dipstick Positive (Negative); Occult Blood-Urine 10 /ul (Negative); Protein-Dipstick 30 mg/dl (Negative); Specific Gravity, Urine 1.015 (1.002-1.030); Urine Clarity Sl. Cloudy (Clear); Urine Urobilinogen 4 mg/dl (Normal)
[2024-03-23 21:30] LABS: Color, Urine SEE COMMENT BELOW (Yellow); Urine Bilirubin Dipstick 3 mg/dL (Negative)
[2024-03-23 21:34] LABS: Absolute Neutrophil Count 11.2 X10^3/uL (2.0-7.7); Basophil# 0.06 X10^3/uL; Basophil% 0.4 % (0-1); Eosinophil# 0.07 X10^3/uL; Eosinophils% 0.5 % (0-5); Hematocrit 31.9 % (40-54); Hemoglobin 10.2 g/dL (13.0-16.5); Lymphocyte % 8.1 % (19-41); Mean Corpuscular Hgb 30.2 pg (27.0-32.0); Mean Corpuscular Volume 94.4 fL (80-94); Mean Platelet Vol. 9.4 fl (6.2-12.0); Monocyte# 1.17 X10^3/uL; Monocyte% 8.6 % (0-10); NRBC Flagged by Analyzer 0 % (0-5); Neutrophil # 11.19 X10^3/uL (2.7-7.7); Neutrophil % 81.9 % (47-70); Platelet Count 310 K/mm3 (150-450); RBC Distribution Width CV 13.2 % (11.6-14.6); RBC Distribution Width SD 46.1 fl (35.1-43.9); Red Blood Count 3.38 M/mm3 (4.6-6.2); White Blood Count 13.7 K/mm3 (4.4-11.0)
[2024-03-23 21:39] LABS: ALB/GLOB Ratio 0.8 RATIO (0.9-2.4); AST(SGOT) 32 U/L (15-37); Alanine Aminotransfer ALT/SGPT 32 U/L (16-61); Albumin, Serum 3.2 g/dL (3.2-5.0); Alkaline Phosphatase 114 U/L (45-117); Anion Gap 9 (5-15); BUN 23 mg/dL (7-18); BUN/Creat Ratio 26.7 RATIO (10-20); Chloride 106 mmol/L (98-107); Creatinine, Serum 0.86 mg/dL (0.70-1.30); EST Glomerular Filtration Rate 91 mL/min (>60); Est Glom Filt Rate - Afr Amer 110 mL/min (>60); Globulin 4.2 g/dL (2.2-4.2); Glucose 128 mg/dL (74-106); Potassium 3.5 mmol/L (3.5-5.1); Protein, Total 7.4 g/dL (6.4-8.2); Sodium Level 140 mmol/L (136-145)
[2024-03-23 21:41] LABS: White Blood Cells 0-5 SEEN /hpf (0-5)
[2024-03-23 21:42] LABS: Mucous, Urine RARE /hpf (<or=2+); Squamous Epithelial Cells - UA 0-5 SEEN /hpf (0-5)
[2024-03-23] MEDS: Lidocaine Jelly 2% 20 ML Syringe (URO-JET) 1 APPLIC TOPICAL (23:07)
[2024-03-23 23:21] VITALS: BP 145/66
--- NOTE | 2024-03-23 23:53 | EX.ED.DYSGE1 ---
HPI History of Present Illness Chief Complaint: Abd Pain Informant: patient and family Narrative Narrative: Patient is an 83-year-old male with past medical history of COPD hypertension and CAD. He states that he had surgery roughly 2 to 3 weeks ago and over the last few days has been having increasing lower abdominal pain. He does report he has been on narcotics and there is also been constipation associated with this. He states that he has been urinating but only a small amount. He denies any history of urinary retention or need for Dawson catheter. However he feels like his symptoms have been steadily worsening over the past 24 hours and secondary to this comes in for evaluation [facility] Medical History (Updated 03/26/24 @ 06:[address] William Cohen, DO) COPD with acute exacerbation Early satiety Abdominal pain Cough Heart murmur Right wrist pain Gastritis Lower respiratory tract infection Sepsis due to pneumonia Streptococcus pneumoniae Depression Viral URI Bronchitis Mesenteric ischemia COPD exacerbation Peripheral arterial disease HTN (hypertension) Hypertriglyceridemia Tubular adenoma COPD (chronic obstructive pulmonary disease) Chronic hypoxemic respiratory failure Pneumonia Continuous tobacco abuse Home Medications ?Medication ?Instructions ?Recorded ?Last Taken ?Type aspirin 81 mg tablet,delayed 81 mg PO QDAY 10/13/17 09/07/23 History release (Adult Aspirin Regimen) clopidogrel 75 mg tablet (Plavix) 75 mg PO QDAY 10/13/17 09/07/23 History atorvastatin 20 mg tablet (Lipitor) 20 mg PO QDAY 01/05/18 09/07/23 History fluticasone propionate 50 2 spray intranasal DAILY #16 grams 04/26/18 09/07/23 Rx mcg/actuation nasal spray,suspension hydroxychloroquine 200 mg tablet 200 mg PO DAILY 5 days #0 tabs 01/17/19 09/07/23 History cholecalciferol (vitamin D3) 125 125 mcg PO DAILY 04/18/21 09/07/23 History mcg (5,000 unit) tablet guaifenesin 1,200 mg tablet, 1,200 mg PO Q12H #60 tabs 01/28/22 09/07/23 Rx extended release 12 hr Disability Placard #1 ea 10/19/23 Unknown Rx enalapril maleate 5 mg tablet 5 mg PO DAILY 10/19/23 Unknown History ipratropium 0.5 mg-albuterol 3 mg 3 ml inhalation Q6H PRN shortness 10/19/23 Unknown Rx (2.5 mg base)/3 mL nebulization of breath or wheezing #180 vials soln fluticasone propionate 230 2 puff inhalation BID #3 device 10/20/23 Unknown Rx mcg-salmeterol 21 mcg/actuation HFA inhaler (Advair HFA) tiotropium bromide 2.5 2 puff inhalation Q24H #3 device 10/20/23 Unknown Rx mcg/actuation mist for inhalation (Spiriva Respimat) albuterol sulfate 90 mcg/actuation 2 puff inhalation Q6H PRN 11/27/23 Unknown Rx aerosol inhaler (ProAir HFA) shortness of breath or wheezing #18 grams Allergy/AdvReac Type Severity Reaction Status Date / Time No Known Allergies Allergy Verified 03/23/24 20:39 Family History Mother Diabetes Heart disease Hypertension Arthritis Parkinsons disease Surgical History Hx of vascular surgery H/O bilateral hip replacements Social History Smoking Status: Former smoker second hand exposure: Yes alcohol intake: never substance use type: does not use caffeine: Yes what type of physical activity do you participate in: none ROS ROS ED Constitutional Constitutional ED: Denies chills or fever(s) ENT ENT ED: Denies sore throat Cardiovascular Cardiovascular: Denies chest pain Respiratory/Chest Respiratory/Chest: Denies cough or dyspnea Gastrointestinal Gastrointestinal: Reports abdominal pain and constipation; Denies diarrhea, nausea or vomiting Genitourinary Genitourinary ED: Reports other Details: Positive urinary hesitancy ; Denies dysuria or urinary frequency Musculoskeletal Musculoskeletal: Denies back pain or myalgias Integumentary Denies rash Neurologic Neurologic: Denies headache(s) Hematologic/Lymphatic Hematologic/Lymphatic: Reports easy bleeding and easy bruising EXAM Physical Exam Const Vital Signs: 03/23/24 20:37 03/23/24 23:21 Temperature 97.9 F Temperature Source Temporal Pulse Rate 90 Respiratory Rate 18 Blood Pressure 157/55 H 145/66 H Blood Pressure Mean 89 92 Pulse Ox 93 Oxygen Delivery Method Room Air Positive well nourished and well developed General Appearance ED: well developed; Negative for pallor HEENT Reports dry mucous membranes HEENT Narrative: Mucous membranes are dry and tacky but show no secondary changes to suggest infection Mouth ED: Yes dry mucous membranes Mouth: dry mucous membranes Eyes PERRL and EOMs intact bilaterally General Eye ED: Negative for scleral icterus Neck supple Resp normal respiratory effort Resp Narrative: Breath sounds are diminished throughout with faint expiratory wheeze in the bilateral lower lobes consistent with history of COPD However no signs of respiratory distress Cardio regular rate and regular rhythm GI non-distended GI Narrative: Abdomen is soft and nondistended with hypoactive bowel sounds however in the midline lower abdomen there is organomegaly consistent with a distended bladder. The patient does have pain with palpation at this site. The rest the abdomen is soft and nonsurgical Auscultation: hypoactive bowel sounds Palpation: soft Narrative: Normal circumcised male no blood or discharge from the urethral meatus no testicular masses or swelling noted no overlying soft tissue changes to suggest Gwendolyn's gangrene Extremity normal to inspection Neuro oriented x3, CN's II-XII intact bilaterally and no sensory deficits noted Sensorium / Orientation: alert Motor Exam: strength 5/5 throughout Psych mental status grossly normal Skin no rashes or lesions noted and No skin turgor normal General Skin Exam: Negative for jaundice or pallor MDM MDM MDM Narrative Medical decision making narrative: Patient arrived to the ER hypertensive but otherwise with stable vitals. He reported increasing abdominal pain with urinary hesitancy. Differential diagnosis is for acute urinary retention versus UTI versus pyelonephritis versus acute kidney injury. His exam is most consistent with acute urinary retention as the organomegaly in the lower midline abdomen is most consistent with a distended bladder. A Dawson catheter was placed and almost 1 L of urine was returned. As patient's had the symptoms ongoing for the last few days there is concern he has now led to acute kidney injury so basic blood work was ordered. This revealed no signs of GUILLE or severe electrolyte abnormality. Therefore at this time as patient's pain has resolved with the decompression of his bladder and he does not have acute kidney injury there is no need for readmission to the hospital and he is otherwise safe for discharge History & Record Review Discussion w/independent historian: Patient and Significant other Lab Data Attestation: I reviewed the patient's lab results. Labs: Laboratory Results - last 24 hr 03/23/24 03/23/24 20:55 21:10 WBC 13.7 H RBC 3.38 L Hgb 10.2 L Hct 31.9 L MCV 94.4 H MCH 30.2 MCHC 32.0 RDW Std Deviation 46.1 H RDW Coeff of [place]ques 13.2 Plt Count 310 MPV 9.4 Immature Gran % (Auto) 0.500 Neut % (Auto) 81.9 H Lymph % (Auto) 8.1 L [place] % (Auto) 8.6 Eos % (Auto) 0.5 Baso % (Auto) 0.4 Absolute Neuts (auto) 11.2 H Absolute Lymphs (auto) 1.10 Nucleated RBC % 0 Sodium 140 Potassium 3.5 Chloride 106 Carbon Dioxide 25.0 Anion Gap 9 BUN 23 H Creatinine 0.86 Est GFR (MDRD) Af Amer 110 Est GFR (MDRD) Non-Af 91 BUN/Creatinine Ratio 26.7 H Glucose 128 H Calcium 9.0 Total Bilirubin 0.80 AST 32 ALT 32 Alkaline Phosphatase 114 Total Protein 7.4 Albumin 3.2 Globulin 4.2 Albumin/Globulin Ratio 0.8 L Urine Color SEE COMMENT BELOW Urine Clarity Sl. Cloudy Urine pH 5.0 Ur Specific [place] 1.015 Urine Protein 30 H Urine Glucose (UA) Normal Urine Ketones Negative Urine Occult Blood 10 H Urine Nitrite Positive H Urine Bilirubin 3 H Urine Urobilinogen 4 H Ur Leukocyte Esterase Negative Urine RBC 0 SEEN Urine WBC 0-5 SEEN Ur Squamous Epith Cells 0-5 SEEN Urine Bacteria 0 SEEN Urine Mucus RARE Discharge Plan Triage Chief Complaint: Abd Pain ED Provider: William Cohen Dx/Rx/DC Orders Clinical Impression: Acute urinary retention, COPD (chronic obstructive pulmonary disease), HTN (hypertension) Instructions: ED Dawson Catheter, Care, ED Urinary Retention, Male Prescriptions: No Action atorvastatin [Lipitor] 20 mg tablet 20 mg PO QDAY clopidogrel [Plavix] 75 mg tablet 75 mg PO QDAY aspirin [Adult Aspirin Regimen] 81 mg tablet,delayed release (DR/EC) 81 mg PO QDAY fluticasone propionate 50 mcg/actuation spray,suspension 2 spray INTRANASAL DAILY Qty: 16 3RF hydroxychloroquine 200 mg tablet 200 mg PO DAILY 5 Days Qty: 0 cholecalciferol (vitamin D3) 125 mcg (5,000 unit) tablet 125 mcg PO DAILY guaifenesin 1,200 mg tablet extended release 12hr 1,200 mg PO Q12H Qty: 60 6RF enalapril maleate 5 mg tablet 5 mg PO DAILY Patient Comments: TAKE 1 TABLET BY MOUTH ONCE DAILY ipratropium-albuterol 0.5 mg-3 mg(2.5 mg base)/3 mL solution for nebulization 3 ml INHALATION Q6H PRN (Reason: shortness of breath or wheezing) Qty: 180 6RF (DME) Disability Placard See Rx Instructions .Route .MEDSUPPLY Qty: 1 0RF Rx Instructions: expires 10/19/2028 albuterol sulfate [ProAir HFA] 90 mcg/actuation HFA aerosol inhaler 2 puff inhalation Q6H PRN (Reason: shortness of breath or wheezing) Qty: 18 6RF Advair HFA 230-21 mcg/actuation HFA aerosol inhaler 2 puff INHALATION BID Qty: 3 3RF Spiriva Respimat 2.5 mcg/actuation mist 2 puff INHALATION Q24H Qty: 3 3RF Primary Care Provider: Evans Lujan Referrals: Evans Lujan MD [Primary Care Provider] - Oswaldo Lakhani MD [Med Staff - Active Staff] - Activity Restrictions/Additional Instructions: Please follow-up with urology for repeat evaluation regarding your urinary retention. The Dawson catheter needs to be left in place until you are evaluated by the urologist in order to prevent reoccurrence of urinary retention. Please continue all of your home medications as directed by your doctor and return to the ER should you have any further concerns. Print Language: Faroese Disposition Disposition: Home, Self Care Discharge Date/Time: 03/24/24 01:35
[2024-03-24 01:00] VITALS: BP 145/52
[2024-03-24] MEDS: oxyCODONE 5 MG Tablet PO (01:16)
[2024-03-24 01:18] VITALS: BP 137/52; PULSE 79; RESP 16; TEMP 36.2; O2SAT 98
== END 2024-03-24 01:35 | disposition home or self-care (01) ==
PROVIDERS: Emergency Provider Emergency Medicine; PCP Internal Medicine; Visit Provider Emergency Medicine
DX: R10.30 Lower abdominal pain, unspecified (principal); J44.9 Chronic obstructive pulmonary disease, unspecified; R33.9 Retention of urine, unspecified; I25.10 Atherosclerotic heart disease of native coronary artery without angina pectoris; Z87.891 Personal history of nicotine dependence; I10 Essential (primary) hypertension; K59.00 Constipation, unspecified
CPT/HCPCS: 51702; 80053; 81001; 85025; 99284; A4216

== ENCOUNTER → 2024-03-24 | Outpatient (CLI) | payer MEDICARE, SELFPAY ==
--- NOTE | 2024-03-24 13:47 | CT_ITS ---
STUDY: CT CHEST WITH CONTRAST REASON FOR EXAM: Male, 83 years old. Lung nodules in high risk patient RADIATION DOSAGE (If Supplied By Facility): CTDIvol = ( 8.88 ) mGy, DLP = ( 223.13 ) mGycm TECHNIQUE: Transaxial imaging was performed following intravenous administration of IV 75mL Isovue-300. Multiplanar coronal and sagittal images were reformatted. Individualized dose optimization techniques were used for this CT. COMPARISON: Comparison is made with prior study dated November 20, 2023. FINDINGS: CHEST Hyperinflation. Diffuse emphysematous changes with bullous formation worse in the upper lobes. Bilateral calcified pleural plaques. Since prior study, there is been progression of the airspace disease at the lower lobes. This may represent areas of the chronic scarring and bronchiectasis. There are calcifications of the coronary arteries. There are multiple small lymph nodes within the mediastinum, which are normal in size and morphology most compatible with reactive lymph hyperplasia. Normal hilar regions. Normal unenhanced pulmonary arteries. There is atherosclerotic calcification of the aortic arch with tortuosity and elongation of the aortic arch and descending thoracic aorta. There are multi-level degenerative changes of the thoracic spine. There is no demonstrated abnormality of the visualized upper abdomen. CT/Chest WITH Contrast IMPRESSION: Diffuse emphysematous changes with diffuse bilateral calcified pleural plaques. Progressive atelectasis and/or scarring at the lower lobes with bronchiectasis. Electronically Signed: Earl Simmons MD at 15:16 EDT ,
== END | disposition home or self-care (01) ==
PROVIDERS: PCP Internal Medicine; Referring Provider Nurse Practitioner Acute Care; Visit Provider Nurse Practitioner Acute Care
DX: R91.8 Other nonspecific abnormal finding of lung field (principal)
CPT/HCPCS: 71260; Q9967; A4216

== ENCOUNTER 2024-04-02 10:29 | Emergency (ER) | payer MEDICARE, SELFPAY ==
[2024-04-02 10:29] VITALS: BP 137/68; PULSE 77; RESP 16; TEMP 36.5; O2SAT 97; BMI 19.8
--- NOTE | 2024-04-02 10:55 | EKG12_ITS ---
Test Reason : Blood Pressure : / mmHG Vent. Rate : 081 BPM Atrial Rate : 081 BPM P-R Int : 164 ms QRS Dur : 096 ms QT Int : 396 ms P-R-T Axes : 051 011 057 degrees QTc Int : 460 ms Poor data quality, interpretation may be adversely affected Normal sinus rhythm probably normal Confirmed by Xavier Dooley ([id number]), sports editor JOE FENTON ([id number]) on 04/04/2024 10:33:20 AM Referred By: Confirmed By:Xavier Dooley
--- NOTE | 2024-04-02 10:58 | EX.ED.DYSGE1 ---
HPI History of Present Illness Chief Complaint: Abd Pain Informant: patient Narrative Narrative: Patient brought in by family for multiple complaints. Patient has COPD and is on 3 L of oxygen chronically. They do note that his breathing has slowly been worsening. He complains of mild mid abdominal pain for the past couple of days. He has a Dawson catheter that was placed approximately 10 days ago and is scheduled to be removed early next week. Family noted the urine is more tea colored and has some sediment in it. He did undergo vascular surgery to the groin 2 days ago. He has a chronic wound to the left lower extremity and is scheduled to see orthopedics in 3 days for possible amputation. Patient denies any chest pain. He does admit to some increased wheezing at times. He states he feels that he cannot get as deep of breath as what he used to be able to do. He denies having fever or chills. [facility] Medical History (Updated 04/02/24 @ 12:[address] Alida Alfaro MD) COPD with acute exacerbation Early satiety Abdominal pain Cough Heart murmur Right wrist pain Gastritis Lower respiratory tract infection Sepsis due to pneumonia Streptococcus pneumoniae Depression Viral URI Bronchitis Mesenteric ischemia COPD exacerbation Peripheral arterial disease HTN (hypertension) Hypertriglyceridemia Tubular adenoma COPD (chronic obstructive pulmonary disease) Chronic hypoxemic respiratory failure Pneumonia Continuous tobacco abuse Home Medications ?Medication ?Instructions ?Recorded ?Last Taken ?Type aspirin 81 mg tablet,delayed 81 mg PO QDAY 10/13/17 09/07/23 History release (Adult Aspirin Regimen) clopidogrel 75 mg tablet (Plavix) 75 mg PO QDAY 10/13/17 09/07/23 History atorvastatin 20 mg tablet (Lipitor) 20 mg PO QDAY 01/05/18 09/07/23 History fluticasone propionate 50 2 spray intranasal DAILY #16 grams 04/26/18 09/07/23 Rx mcg/actuation nasal spray,suspension hydroxychloroquine 200 mg tablet 200 mg PO DAILY 5 days #0 tabs 01/17/19 09/07/23 History cholecalciferol (vitamin D3) 125 125 mcg PO DAILY 04/18/21 09/07/23 History mcg (5,000 unit) tablet guaifenesin 1,200 mg tablet, 1,200 mg PO Q12H #60 tabs 01/28/22 09/07/23 Rx extended release 12 hr Disability Placard #1 ea 10/19/23 Unknown Rx enalapril maleate 5 mg tablet 5 mg PO DAILY 10/19/23 Unknown History ipratropium 0.5 mg-albuterol 3 mg 3 ml inhalation Q6H PRN shortness 10/19/23 Unknown Rx (2.5 mg base)/3 mL nebulization of breath or wheezing #180 vials soln fluticasone propionate 230 2 puff inhalation BID #3 device 10/20/23 Unknown Rx mcg-salmeterol 21 mcg/actuation HFA inhaler (Advair HFA) tiotropium bromide 2.5 2 puff inhalation Q24H #3 device 10/20/23 Unknown Rx mcg/actuation mist for inhalation (Spiriva Respimat) albuterol sulfate 90 mcg/actuation 2 puff inhalation Q6H PRN 11/27/23 Unknown Rx aerosol inhaler (ProAir HFA) shortness of breath or wheezing #18 grams cephalexin 500 mg capsule 500 mg PO 4X/DAY 04/02/24 Unknown History finasteride 5 mg tablet 5 mg PO DAILY 04/02/24 Unknown History Allergy/AdvReac Type Severity Reaction Status Date / Time No Known Allergies Allergy Verified 04/02/24 10:29 Family History Mother Diabetes Heart disease Hypertension Arthritis Parkinsons disease Surgical History Hx of vascular surgery H/O bilateral hip replacements Social History Smoking Status: Former smoker second hand exposure: Yes alcohol intake: never substance use type: does not use caffeine: Yes what type of physical activity do you participate in: none ROS ROS ED Constitutional Constitutional ED: Denies chills or fever(s) Eyes Eyes: Denies discharge from eye(s) ENT ENT ED: Denies discharge from eye(s), rhinorrhea or sore throat Cardiovascular Cardiovascular: Denies chest pain or palpitations Respiratory/Chest Respiratory/Chest: Reports dyspnea; Denies cough Gastrointestinal Gastrointestinal: Reports abdominal pain, nausea and vomiting; Denies diarrhea Genitourinary Genitourinary ED: Reports other Details: Discoloration to urine in Dawson catheter Musculoskeletal Musculoskeletal: Reports extremity pain; Denies back pain Integumentary Reports abscess; Denies Abrasions or rash Neurologic Neurologic: Denies headache(s) or weakness Psychiatric Psychiatric: Denies anxiety or depression Allergic/Immunologic Allergic/Immunologic ED: Denies lip swelling or urticaria EXAM Physical Exam Const Vital Signs: 04/02/24 10:29 04/02/24 11:07 04/02/24 11:17 Temperature 97.7 F L Temperature Source Temporal Pulse Rate 77 85 Respiratory Rate 16 17 Respiratory Pattern Normal Blood Pressure 137/68 H Blood Pressure Mean 91 Pulse Ox 97 100 Oxygen Delivery Method Room Air Nasal Cannula Oxygen Flow Rate (L/min) 3 Positive well nourished and well developed General Appearance ED: well developed HEENT Reports moist mucous membranes Eyes EOMs intact bilaterally Chest Wall inspection of chest normal and palpation of chest normal Resp Resp Narrative: Mild expiratory wheezes with rales bilaterally. Cardio regular rate and regular rhythm GI GI Narrative: Abdomen soft with no focal tenderness. Hypoactive bowel sounds noted. Narrative: Dawson catheter in place. Slight sediment noted in Dawson tubing. Extremity Extremity Narrative: 7 x 2 cm ulcerated wound noted to the medial portion of the left lower extremity. No surrounding cellulitis. Neuro oriented x3 Psych mental status grossly normal MDM MDM MDM Narrative Medical decision making narrative: Patient placed on gasoline service attendant. He remains on his normal 3 L of oxygen and satting in the high 90s. IV line established. Labwork obtained to evaluate for leukocytosis, anemia, and electrolyte derangement. Chest x-ray obtained to evaluate for acute lung pathology, cardiac size, or mediastinal abnormality. EKG obtained to evaluate for cardiac arrhythmia/ischemia. I will also obtain an x-ray of the left tib-fib to evaluate for any deep infection or bony changes. Blood, urine, and wound cultures will be sent. Dawson catheter will be irrigated and to be will be changed out. Urinalysis obtained to evaluate for infection/hematuria. Patient given a DuoNeb treatment. History & Record Review Discussion w/independent historian: Patient and Family Additional record(s) reviewed:: Prior outpatient record and Prior labs Lab Data Attestation: I reviewed the patient's lab results. Labs: Laboratory Results - last 24 hr 04/02/24 04/02/24 11:29 11:46 WBC 9.5 RBC 2.97 L Hgb 8.8 L Hct 28.5 L MCV 96.0 H MCH 29.6 MCHC 30.9 L RDW Std Deviation 46.7 H RDW Coeff of [place]ques 13.2 Plt Count 263 MPV 8.7 Immature Gran % (Auto) 0.500 Neut % (Auto) 80.9 H Lymph % (Auto) 9.7 L [place] % (Auto) 6.7 Eos % (Auto) 1.7 Baso % (Auto) 0.5 Absolute Neuts (auto) 7.7 Absolute Lymphs (auto) 0.92 Nucleated RBC % 0 Sodium 143 Potassium 3.7 Chloride 108 H Carbon Dioxide 28.0 Anion Gap 7 BUN 21 H Creatinine 0.69 L Estim Creat Clear Calc 61.20 Est GFR (MDRD) Af Amer 141 Est GFR (MDRD) Non-Af 116 BUN/Creatinine Ratio 30.3 H Glucose 82 Calcium 8.8 Total Bilirubin 0.70 Direct Bilirubin 0.31 H AST 19 ALT 24 Alkaline Phosphatase 93 Total Protein 6.7 Albumin 2.7 L Globulin 4.0 Urine Color Yellow Urine Clarity Clear Urine pH 6.0 Ur Specific [place] 1.020 Urine Protein 30 H Urine Glucose (UA) Normal Urine Ketones Negative Urine Occult Blood 250 H Urine Nitrite Negative Urine Bilirubin Negative Urine Urobilinogen 1 H Ur Leukocyte Esterase 25 H Urine RBC 10-25 SEEN Urine WBC 0-5 SEEN Ur Squamous Epith Cells 0-5 SEEN Urine Bacteria 0 SEEN Urine Mucus 0 SEEN Radiography Chest X-Ray - ED: 1 View, Read by ED Physician, Chronic Changes and No Infiltrates Diagnostic Testing: Clinical Impression(s) from Imaging Studies Tibia/Fibula X-Ray 04/02/24 11:35 IMPRESSION: Intact left tibia and fibula. Electronically Signed: August Carter MD at 12:12 EDT , Chest X-Ray 04/02/24 11:40 IMPRESSION: Stable COPD and pleural parenchymal scarring. Electronically Signed: August Carter MD at 12:11 EDT , EKG Initial EKG: Attestation: I personally reviewed and interpreted this EKG as follows: Interpretation: Sinus Rhythm (Sinus at 81 with no acute ischemia.) Treatment and Re-Evaluation :: CBC reveals a white count of 9.5 with 81% neutrophils. Hemoglobin and hematocrit today are 8.8 and 28.5. I did look up prior values. On March 23 he was 10.2 and 31.9. On March 31 prior to his vascular surgery, he was 9.5 and 27.6. Chemistry studies today are unremarkable with normal creatinine. Potassium is normal at 3.7. LFTs unremarkable. Urinalysis reveals 10-25 RBCs with 250 of occult blood. No ketones noted. No bacteria and only 0-5 white cells. Portable chest x-ray per my interpretation reveals chronic changes with no obvious infiltrate. Radiology interpretation reviewed and agrees. Left tib-fib x-rays reveal small soft tissue injury with no gas in the tissues. No obvious deep bony abnormality. Patient does feel somewhat improved after his DuoNeb treatment. Test results were reviewed with family. I think patient may have some degree of rhabdo causing his urine to look slightly dark after his surgery. I do not see evidence of infection. Blood, urine, and wound cultures have all been sent. If he requires different treatment he will be contacted. He is currently on Keflex. Left leg wound will be cleansed and redressed prior to discharge. Return instructions provided. Family comfortable with the plan. Discharge Plan Triage Chief Complaint: Abd Pain ED Provider: Alida Alfaro Dx/Rx/DC Orders Clinical Impression: Leg wound, left, Dyspnea, Urine discoloration Instructions: ED Dyspnea, ED Dawson Catheter, Care, ED Wound Care Prescriptions: No Action atorvastatin [Lipitor] 20 mg tablet 20 mg PO QDAY clopidogrel [Plavix] 75 mg tablet 75 mg PO QDAY aspirin [Adult Aspirin Regimen] 81 mg tablet,delayed release (DR/EC) 81 mg PO QDAY fluticasone propionate 50 mcg/actuation spray,suspension 2 spray INTRANASAL DAILY Qty: 16 3RF hydroxychloroquine 200 mg tablet 200 mg PO DAILY 5 Days Qty: 0 cholecalciferol (vitamin D3) 125 mcg (5,000 unit) tablet 125 mcg PO DAILY guaifenesin 1,200 mg tablet extended release 12hr 1,200 mg PO Q12H Qty: 60 6RF enalapril maleate 5 mg tablet 5 mg PO DAILY Patient Comments: TAKE 1 TABLET BY MOUTH ONCE DAILY ipratropium-albuterol 0.5 mg-3 mg(2.5 mg base)/3 mL solution for nebulization 3 ml INHALATION Q6H PRN (Reason: shortness of breath or wheezing) Qty: 180 6RF (DME) Disability Placard See Rx Instructions .Route .MEDSUPPLY Qty: 1 0RF Rx Instructions: expires 10/19/2028 albuterol sulfate [ProAir HFA] 90 mcg/actuation HFA aerosol inhaler 2 puff inhalation Q6H PRN (Reason: shortness of breath or wheezing) Qty: 18 6RF cephalexin 500 mg capsule 500 mg PO 4X/DAY finasteride 5 mg tablet 5 mg PO DAILY Advair HFA 230-21 mcg/actuation HFA aerosol inhaler 2 puff INHALATION BID Qty: 3 3RF Spiriva Respimat 2.5 mcg/actuation mist 2 puff INHALATION Q24H Qty: 3 3RF Primary Care Provider: Evans Lujan Referrals: Evans Lujan MD [Primary Care Provider] - 1 Week if not improving Activity Restrictions/Additional Instructions: Follow-up with orthopedics on Thursday as scheduled. Cultures were sent of your blood, urine, and wound. If you require different antibiotic treatment you will be contacted. These cultures typically take 48 hours to result. Print Language: German Disposition Disposition: Home, Self Care
[2024-04-02] MEDS: Ipratropium/Albuterol Sulfate 3 ML AMPUL.NEB INHALATION (11:05)
[2024-04-02 11:07] VITALS: PULSE 85; RESP 17
[2024-04-02 11:17] VITALS: O2SAT 100
--- NOTE | 2024-04-02 11:35 | RAD_ITS ---
EXAM: XR LEFT TIBIA AND FIBULA, 2 VIEWS CLINICAL INDICATION: infection TECHNIQUE: Frontal and lateral views of the left tibia and fibula. COMPARISON: No relevant prior studies available. FINDINGS: BONES/JOINTS: No acute abnormality. SOFT TISSUES: Normal. No soft tissue swelling or gas. No radiopaque foreign body. RAD/Tibia & Fibula 2 Views IMPRESSION: Intact left tibia and fibula. Electronically Signed: August Carter MD at 12:12 EDT ,
[2024-04-02 11:37] LABS: Absolute Lymphocyte Count 0.92 X10^3/uL (0.83-4.51); Absolute Neutrophil Count 7.7 X10^3/uL (2.0-7.7); Basophil# 0.05 X10^3/uL; Basophil% 0.5 % (0-1); Eosinophil# 0.16 X10^3/uL; Eosinophils% 1.7 % (0-5); Hematocrit 28.5 % (40-54); Hemoglobin 8.8 g/dL (13.0-16.5); Lymphocyte # 0.92 X10^3/ul (0.83-4.51); Lymphocyte % 9.7 % (19-41); Mean Corp Hgb Conc 30.9 g/dL (32-36); Mean Corpuscular Hgb 29.6 pg (27.0-32.0); Mean Platelet Vol. 8.7 fl (6.2-12.0); Monocyte# 0.63 X10^3/uL; Monocyte% 6.7 % (0-10); NRBC Flagged by Analyzer 0 % (0-5); Neutrophil # 7.66 X10^3/uL (2.7-7.7); Neutrophil % 80.9 % (47-70); Platelet Count 263 K/mm3 (150-450); RBC Distribution Width CV 13.2 % (11.6-14.6); RBC Distribution Width SD 46.7 fl (35.1-43.9); Red Blood Count 2.97 M/mm3 (4.6-6.2); White Blood Count 9.5 K/mm3 (4.4-11.0)
--- NOTE | 2024-04-02 11:40 | RAD_ITS ---
EXAM: XR CHEST, 1 VIEW CLINICAL INDICATION: sob TECHNIQUE: Frontal view of the chest. COMPARISON: XR Chest dated 09/08/2023 FINDINGS: LUNGS AND PLEURAL SPACES: Extensive emphysematous changes of lungs again noted with scattered areas of pulmonary scarring. Calcific pleural plaquing. Persistent blunting of the costophrenic sulci consistent with scarring. HEART: Normal heart size. MEDIASTINUM: No mediastinal or hilar mass. BONES/JOINTS: Cephalic drift of both humeral heads consistent with chronic rotator cuff deformity. RAD/Chest 1 View (Portable) IMPRESSION: Stable COPD and pleural parenchymal scarring. Electronically Signed: August Carter MD at 12:11 EDT ,
[2024-04-02 11:54] LABS: AST(SGOT) 19 U/L (15-37); Alanine Aminotransfer ALT/SGPT 24 U/L (16-61); Albumin, Serum 2.7 g/dL (3.2-5.0); Alkaline Phosphatase 93 U/L (45-117); Anion Gap 7 (5-15); BUN 21 mg/dL (7-18); BUN/Creat Ratio 30.3 RATIO (10-20); Bilirubin, Direct 0.31 mg/dL (0.00-0.30); Calcium,Total 8.8 mg/dL (8.5-10.1); Chloride 108 mmol/L (98-107); Creatinine, Serum 0.69 mg/dL (0.70-1.30); EST Glomerular Filtration Rate 116 mL/min (>60); Est Glom Filt Rate - Afr Amer 141 mL/min (>60); Glucose 82 mg/dL (74-106); Potassium 3.7 mmol/L (3.5-5.1); Protein, Total 6.7 g/dL (6.4-8.2); Sodium Level 143 mmol/L (136-145)
[2024-04-02 11:54] LABS: Bacteria 0 SEEN /hpf (None Seen); Mucous, Urine 0 SEEN /hpf (<or=2+)
[2024-04-02 12:02] LABS: Color, Urine Yellow (Yellow); Glucose, Dipstick Normal (Normal); Ketone-Dipstick Negative (Negative); Leukocyte Esterase-Dipstick 25 /ul (Negative); Nitrite-Dipstick Negative (Negative); Occult Blood-Urine 250 /ul (Negative); Protein-Dipstick 30 mg/dl (Negative); Urine Bilirubin Dipstick Negative (Negative); Urine Clarity Clear (Clear); Urine Urobilinogen 1 mg/dl (Normal)
[2024-04-02 12:03] LABS: Red Blood Cells-Urine 10-25 SEEN /hpf (0-5); Squamous Epithelial Cells - UA 0-5 SEEN /hpf (0-5); White Blood Cells 0-5 SEEN /hpf (0-5)
[2024-04-02 12:29] VITALS: BP 161/73; PULSE 90; RESP 16; O2SAT 95
[2024-04-02 12:34] VITALS: BP 161/73; PULSE 90; RESP 16; TEMP 36.5; O2SAT 95
== END 2024-04-02 12:50 | disposition home or self-care (01) ==
PROVIDERS: Emergency Provider Emergency Medicine; PCP Internal Medicine; Visit Provider Emergency Medicine
DX: S81.802A Unspecified open wound, left lower leg, initial encounter (principal); J44.9 Chronic obstructive pulmonary disease, unspecified; I10 Essential (primary) hypertension; Z87.891 Personal history of nicotine dependence; R10.9 Unspecified abdominal pain; R06.00 Dyspnea, unspecified; R11.2 Nausea with vomiting, unspecified; Z99.81 Dependence on supplemental oxygen; X58.XXXA Exposure to other specified factors, initial encounter
CPT/HCPCS: 36415; 71045; 73590; 80048; 80076; 81001; 85025; 87040; 87070; 87077; 87086; 87186; 87205; 93005; 94640; 99284; A4216

== ENCOUNTER 2024-05-25 10:52 | Observation (INO) | payer MEDICARE, SELFPAY ==
[2024-05-25] VITALS (16 sets, daily range): BP systolic 108–156; BP diastolic 39–80; PULSE 59–76; RESP 12–16; TEMP 36.3–37.4; O2SAT 95–100; BMI 19.8
--- NOTE | 2024-05-25 10:20 | PRE.ANES_ITS ---
ASA Classification* ASA Classification ASA Classification: 3 Assessment & Plan Anesthesia* Anesthesia Assessment Anesthesia Assessment: Discussed sedation and/or anesthesia options, risks, benefits, and alternatives with patient/parents/legal guardian/POA. Questions invited. The patient/parents/legal guardian/POA seems to understand and agrees to proceed with anesthesia plan. Reviewed the physical assessment, medical history, allergy history and patient home medications list prior to surgery/procedure/anesthetic and documented any changes. Performed airway and anesthesia risk assessments. Anesthesia Type Anesthesia Type: MAC and Spinal (see written pre anesthesia record for full assessment) Anesthesia Focused Assessment* Temperature: 99.3 F Pulse Rate: 72 Blood Pressure: 147/68 Respiratory Rate: 14 Pulse Ox: 100 Airway Assessment Mouth opens: >3 cm Mallampati Score: II Focused Labs Anesthesia Preop lab: CBC WBC 9.5 K/mm3 (4.4-11.0) 04/02/24 11:29 RBC 2.97 M/mm3 (4.6-6.2) L 04/02/24 11:29 Hgb 8.8 g/dL (13.0-16.5) L 04/02/24 11:29 Hct 28.5 % (40-54) L 04/02/24 11:29 Plt Count 263 K/mm3 (150-450) 04/02/24 11:29 CHEMISTRY Potassium 3.7 mmol/L (3.5-5.1) 04/02/24 11:29 Sodium 143 mmol/L (136-145) 04/02/24 11:29 BUN 21 mg/dL (7-18) H 04/02/24 11:29 Creatinine 0.69 mg/dL (0.70-1.30) L 04/02/24 11:29 Glucose 82 mg/dL (74-106) 04/02/24 11:29 COAG PT 15.2 SECONDS (11.7-14.9) H 09/07/23 20:30 Pre-Assessment Diagnosis/Proposed Procedure Planned Operative Procedure(s): TRANS URETHERAL RESECTION OF PROSTATE WITH OLYMPUS Anesthesia History Anesthesia History - full service supervisor: Anesthesia History - full service supervisor Hx Hospitalization Yes: [facility] Fredy BANG 05/19/24 09:11 IN LAST YR. MOST RECENT [facility] LEFT BKA. Any Problems With Anesthesia Yes: PONV 05/19/24 09:11 Cholinesterase deficiency No 05/19/24 09:11 You/Your Family Experience No 05/19/24 09:11 fever (hyperthermia) with Relationship Recent Exposure to Contagious No 05/25/24 09:58 Disease Does patient have nerve No 05/19/24 09:11 stimulator Patient instructed to have device shut off --Does patient have Pacemaker No 05/25/24 09:58 or ICD? When Was Last Pacemaker Check QUESTION #4 FULL TEXT: You/Your Family Experience fever (hyperthermia) with Anesthesia Last Oral Intake Last Oral intake: Last Oral Intake NPO since 22:00 05/25/24 09:58 Meds taken in AM with sips of Yes 05/25/24 09:58 water? Meds patient instructed to take am of surgery PONV PONV - full service supervisor: PONV - full service supervisor Female No 05/19/24 09:11 HX of Motion Sickness No 05/19/24 09:11 HX of N/V After Surgery Yes 05/19/24 09:11 Non-Smoker Yes 05/19/24 09:11 Duration of Surgery greater Yes 05/19/24 09:11 than 60 minutes Number of Risk Factors 3 05/19/24 09:11 PONV Score Moderate Risk 05/19/24 09:11 Height & Weight Height & Weight: Anesthesia: Height & Weight Height 5 ft 9 in 05/25/24 09:58 Weight: 60.781 kg 05/25/24 09:58 Body Mass Index (BMI) 19.8 05/25/24 09:58 Respiratory Assessment Respiratory Assessment - full service supervisor: Respiratory Tract Infection Hx - full service supervisor Hx Respiratory Tract Infection No 05/19/24 09:11 STOP Sleep Apnea STOP Sleep Apnea - full service supervisor: STOP Sleep Apnea - full service supervisor Hx Hypertension Yes: CONTROLLED WITH MEDS 05/19/24 09:11 Hx Sleep Apnea No 05/19/24 09:11 CPAP BIPAP Do you snore loudly (louder No 05/19/24 09:11 than talking or can be heard Do you often feel tired/ No 05/19/24 09:11 fatigued/ sleepy during daytime? Has anyone observed you stop No 05/19/24 09:11 breathing during sleep? STOP Results Negative 05/19/24 09:11 QUESTION #5 FULL TEXT : Do you snore loudly (louder than talking or can be heard through closed doors)? Tobacco Use History Tobacco Use History - full service supervisor: Tobacco Use History - full service supervisor Tobacco Use Smoking Status Former smoker 05/19/24 09:11 Hx Tobacco Use No 05/19/24 09:11 Years Smoking Packs Smoked per Day Smoking Cessation Date was No - quit smoking greater 05/19/24 09:11 within the last 15 years than 15 years ago Hx Smoking Cessation Date 10/05/21 05/19/24 09:11 Hx Smoking Cessation No 05/19/24 09:11 Counseling Hematologic Medial History Hematologic Hx - full service supervisor: Hematologic Medical Hx - occupational health coordinator Hx of Blood Transfusion No 05/19/24 09:11 Hx of Transfusion in last 3 No 05/19/24 09:11 Months Date of Last Transfusion (if within last 3 months) Ever experience any problems No 05/19/24 09:11 with transfusion(s)? Specify any problems Hx of Preganancy in last 3 N/A 05/19/24 09:11 Months Nurse Filling Out Transfusion [id number] 05/19/24 09:11 & Questions: Date: 05/19/24 05/19/24 09:11 Time: 09:18 05/19/24 09:11 Patient unable to answer at this time (ie. confused, unrespo /Reproduction History /Reproductive History - full service supervisor: /Reproductive Hx- full service supervisor Hx Now Gestational Age (in weeks): EDC: Hx Hx Para Hx Section SAB Active Medications Active Medications: Current Medications Generic Name Dose Route Start Last Admin Trade Name Freq PRN Reason Stop Dose Admin Cefazolin Sodium 2 gm/ Sodium 110 mls @ 150 mls/hr 05/25/24 12:40 Chloride IV 05/25/24 13:23 PREOP ONE PFSH Medical History High cholesterol Arthritis Uses wheelchair Wears hearing aid Wears glasses Wears dentures Former smoker On home oxygen therapy COPD with acute exacerbation Early satiety Abdominal pain Cough Heart murmur Right wrist pain Gastritis Lower respiratory tract infection Sepsis due to pneumonia Streptococcus pneumoniae Depression Viral URI Bronchitis Mesenteric ischemia COPD exacerbation Peripheral arterial disease HTN (hypertension) Hypertriglyceridemia Tubular adenoma COPD (chronic obstructive pulmonary disease) Chronic hypoxemic respiratory failure Pneumonia Continuous tobacco abuse Home Medications ?Medication ?Instructions ?Recorded ?Last Taken ?Type aspirin 81 mg tablet,delayed 81 mg PO QDAY 10/13/17 05/18/24 History release (Adult Aspirin Regimen) clopidogrel 75 mg tablet (Plavix) 75 mg PO QDAY 10/13/17 05/18/24 History atorvastatin 20 mg tablet (Lipitor) 20 mg PO QDAY 01/05/18 05/24/24 History hydroxychloroquine 200 mg tablet 200 mg PO DAILY 5 days #0 tabs 01/17/19 05/25/24 History cholecalciferol (vitamin D3) 125 125 mcg PO DAILY 04/18/21 05/25/24 History mcg (5,000 unit) tablet guaifenesin 1,200 mg tablet, 1,200 mg PO Q12H #60 tabs 01/28/22 09/07/23 Rx extended release 12 hr Disability Placard #1 ea 10/19/23 Unknown Rx enalapril maleate 5 mg tablet 5 mg PO DAILY 10/19/23 05/25/24 History ipratropium 0.5 mg-albuterol 3 mg 3 ml inhalation Q6H PRN shortness 10/19/23 Unknown Rx (2.5 mg base)/3 mL nebulization of breath or wheezing #180 vials soln fluticasone propionate 230 2 puff inhalation BID #3 device 10/20/23 05/25/24 Rx mcg-salmeterol 21 mcg/actuation HFA inhaler (Advair HFA) tiotropium bromide 2.5 2 puff inhalation Q24H #3 device 10/20/23 05/25/24 Rx mcg/actuation mist for inhalation (Spiriva Respimat) albuterol sulfate 90 mcg/actuation 2 puff inhalation Q6H PRN 11/27/23 05/25/24 Rx aerosol inhaler (ProAir HFA) shortness of breath or wheezing #18 grams finasteride 5 mg tablet 5 mg PO DAILY 04/02/24 05/25/24 History fluticasone propionate 50 2 spray intranasal DAILY PRN 05/19/24 Unknown History mcg/actuation nasal allergy symptoms spray,suspension Allergy/AdvReac Type Severity Reaction Status Date / Time No Known Allergies Allergy Verified 05/25/24 09:55 Family History Mother Diabetes Heart disease Hypertension Arthritis Parkinsons disease Surgical History Hx of BKA Hx of vascular surgery H/O bilateral hip replacements Social History Smoking Status: Former smoker second hand exposure: Yes alcohol intake: never substance use type: does not use caffeine: Yes what type of physical activity do you participate in: none Review of Systems (Anesthesia) ROS Narrative System reviewed and no additional complaints, except as documented.
[2024-05-25] MEDS: Lactated Ringers 1,000 ML 15 ML IV (10:21)
[2024-05-25] MEDS: Lubricating Jelly 60 GM Tube 30 GM (10:23)
--- NOTE | 2024-05-25 10:32 | SUR.PREOP ---
PATIENT HAS A HEMATOMA ON THE BACK OF HIS RIGHT SIDE OF HIS HEAD OCCIPITAL AREA. SMALL LUMP NOTED, IT SUPPORT SPECIALIST PER PATIENT. NO NEUROLOGICAL SYMPTOMS SINCE THE FALL.
--- NOTE | 2024-05-25 10:47 | PCM.HP.STD ---
HPI - General General Date of Service: 05/25/24 Chief Complaint: BPH with obstruction HPI Narrative VIKA BUSTAMANTE, is a 84 M who presents for transurethral resection of the prostate with a TURP [facility] Medical History High cholesterol Arthritis Uses wheelchair Wears hearing aid Wears glasses Wears dentures Former smoker On home oxygen therapy COPD with acute exacerbation Early satiety Abdominal pain Cough Heart murmur Right wrist pain Gastritis Lower respiratory tract infection Sepsis due to pneumonia Streptococcus pneumoniae Depression Viral URI Bronchitis Mesenteric ischemia COPD exacerbation Peripheral arterial disease HTN (hypertension) Hypertriglyceridemia Tubular adenoma COPD (chronic obstructive pulmonary disease) Chronic hypoxemic respiratory failure Pneumonia Continuous tobacco abuse Home Medications ?Medication ?Instructions ?Recorded ?Last Taken ?Type aspirin 81 mg tablet,delayed 81 mg PO QDAY 10/13/17 05/18/24 History release (Adult Aspirin Regimen) clopidogrel 75 mg tablet (Plavix) 75 mg PO QDAY 10/13/17 05/18/24 History atorvastatin 20 mg tablet (Lipitor) 20 mg PO QDAY 01/05/18 05/24/24 History hydroxychloroquine 200 mg tablet 200 mg PO DAILY 5 days #0 tabs 01/17/19 05/25/24 History cholecalciferol (vitamin D3) 125 125 mcg PO DAILY 04/18/21 05/25/24 History mcg (5,000 unit) tablet guaifenesin 1,200 mg tablet, 1,200 mg PO Q12H #60 tabs 01/28/22 09/07/23 Rx extended release 12 hr Disability Placard #1 ea 10/19/23 Unknown Rx enalapril maleate 5 mg tablet 5 mg PO DAILY 10/19/23 05/25/24 History ipratropium 0.5 mg-albuterol 3 mg 3 ml inhalation Q6H PRN shortness 10/19/23 Unknown Rx (2.5 mg base)/3 mL nebulization of breath or wheezing #180 vials soln fluticasone propionate 230 2 puff inhalation BID #3 device 10/20/23 05/25/24 Rx mcg-salmeterol 21 mcg/actuation HFA inhaler (Advair HFA) tiotropium bromide 2.5 2 puff inhalation Q24H #3 device 10/20/23 05/25/24 Rx mcg/actuation mist for inhalation (Spiriva Respimat) albuterol sulfate 90 mcg/actuation 2 puff inhalation Q6H PRN 11/27/23 05/25/24 Rx aerosol inhaler (ProAir HFA) shortness of breath or wheezing #18 grams finasteride 5 mg tablet 5 mg PO DAILY 04/02/24 05/25/24 History fluticasone propionate 50 2 spray intranasal DAILY PRN 05/19/24 Unknown History mcg/actuation nasal allergy symptoms spray,suspension Allergy/AdvReac Type Severity Reaction Status Date / Time No Known Allergies Allergy Verified 05/25/24 09:55 Family History Mother Diabetes Heart disease Hypertension Arthritis Parkinsons disease Surgical History Hx of BKA Hx of vascular surgery H/O bilateral hip replacements Social History Smoking Status: Former smoker second hand exposure: Yes alcohol intake: never substance use type: does not use caffeine: Yes what type of physical activity do you participate in: none Vital Signs Vital Signs Vital Signs: 05/25/24 09:58 05/25/24 09:58 05/25/24 10:20 Temperature 99.3 F H 99.3 F H Temperature Source Temporal Pulse Rate 72 72 Respiratory Rate 14 14 Respiratory Pattern Normal Blood Pressure 147/68 H 147/68 H Blood Pressure Mean 94 Blood Pressure Source Monitor Blood Pressure Position Semi-Fowlers Blood Pressure Location Left Arm Pulse Ox 100 100 Oxygen Delivery Method Nasal Cannula Oxygen Flow Rate (L/min) 3 3 Weight Weight: 60.781 kg Body Mass Index (BMI) 19.8
--- NOTE | 2024-05-25 10:52 | DCINST_ITS ---
Discharge Instructions Diet Discharge Diet: No restrictions Activity Discharge Activity: Return to Normal Activity and May Not Drive (while taking narcotic pain medications.) Follow Up Care Please Follow Up With: Oswaldo Lakhani MD When: Call [phone] for an appointment Test Results: Test results from this visit will be discussed in further detail at your follow- up appointment, if applicable. Discharge Plan Admission Primary Reason for Your Visit: tiffany Attending Provider: Oswaldo Lakhani Primary Care Provider: Evans Lujan Instructions Patient Instructions: TIFFANY Home Recovery Print Language: Palestinian Discharge Orders/Prescriptions Prescriptions: Continued atorvastatin [Lipitor] 20 mg tablet 20 mg PO QDAY hydroxychloroquine 200 mg tablet 200 mg PO DAILY 5 Days Qty: 0 cholecalciferol (vitamin D3) 125 mcg (5,000 unit) tablet 125 mcg PO DAILY guaifenesin 1,200 mg tablet extended release 12hr 1,200 mg PO Q12H Qty: 60 6RF enalapril maleate 5 mg tablet 5 mg PO DAILY Patient Comments: TAKE 1 TABLET BY MOUTH ONCE DAILY ipratropium-albuterol 0.5 mg-3 mg(2.5 mg base)/3 mL solution for nebulization 3 ml INHALATION Q6H PRN (Reason: shortness of breath or wheezing) Qty: 180 6RF (DME) Disability Placard See Rx Instructions .Route .MEDSUPPLY Qty: 1 0RF Rx Instructions: expires 10/19/2028 albuterol sulfate [ProAir HFA] 90 mcg/actuation HFA aerosol inhaler 2 puff inhalation Q6H PRN (Reason: shortness of breath or wheezing) Qty: 18 6RF fluticasone propionate 50 mcg/actuation spray,suspension 2 spray INTRANASAL DAILY PRN (Reason: allergy symptoms) finasteride 5 mg tablet 5 mg PO DAILY Advair HFA 230-21 mcg/actuation HFA aerosol inhaler 2 puff INHALATION BID Qty: 3 3RF Spiriva Respimat 2.5 mcg/actuation mist 2 puff INHALATION Q24H Qty: 3 3RF Held clopidogrel [Plavix] 75 mg tablet 75 mg PO QDAY Hold Instructions: Resume on 06/08/24. aspirin [Adult Aspirin Regimen] 81 mg tablet,delayed release (DR/EC) 81 mg PO QDAY Hold Instructions: Resume on 06/08/24. Referrals / Follow Up: Evans Lujan MD [Primary Care Provider] - Oswaldo Lakhani MD [Med Staff - Active Staff] - Disposition Disposition (needs filled in before D/C Order can be placed): Home, Self Care
[2024-05-25] MEDS: Cefazolin 2 GM in 0.9% Normal Saline (100mL Bag) 100 ML IV (11:30)
--- NOTE | 2024-05-25 11:45 | PROS_PTH ---
PATIENT: VIKA BUSTAMANTE LOC: [facility] U#:[id number] AGE/SX: 84/M ROOM: [facility]318 RE05/25/[address]: Dr. Oswaldo Lakhani MD : 1940 BED: 1 DIS: 05/26/2024 SPEC #: [id number] RECD: 05/25/24 12:50 STATUS: ANKUSH ELLER #: [id number] TAMELA: 05/25/24 11:[address]: Oswaldo Lakhani DEPT: SURGICAL PATHOLOGY RECD BY: Jennifer Ewing ENTERED: 05/25/24 13:36 SP TYPE: TURP OTHR DR: Dr. Evans Lujan MD Tissues: Prostate, NOS Procedures: Surgery Specimen Level IV HEADER OPERATION: Transurethral resection prostate PRE-OP DIAGNOSIS: Benign prostatic hyperplasia with obstruction TISSUE SUBMITTED: Prostate tissue MICROSCOPIC DIAGNOSIS Prostate, transurethral resection: Benign nodular hyperplasia, predominantly stromal type. AM/mr 05/26/2024 MICROSCOPIC DESCRIPTION Slides are reviewed. GROSS DESCRIPTION Received is one container labeled with the patient's name and designated prostate tissue. The specimen consists of multiple irregular fragments of pink-dutton, rubbery, soft tissue that in aggregate weigh 3.1 gm and measure in aggregate 3.0 x 3.0 x 1.2 cm. The entire specimen is submitted in four cassettes. CELIA/ 05/25/2024 TC:5 CPT: 92429
--- NOTE | 2024-05-25 12:17 | PCM.OPRPT ---
Report of Operation Date of Procedure: 05/25/24 Pre-Operative Diagnosis: BPH with obstruction Post-Operative Diagnosis: The same Surgery/Procedure Performed:: Transurethral section of the prostate Description of Surgical Findings:: In the preoperative setting I discussed with the patient how the surgery would be done with expect afterwards. We discussed how a prostate resection is done and we discussed the risk of the surgery including, bleeding, infection, retrograde ejaculation, changes with ejaculation or intercourse,. We discussed the possibility that the resection of the prostate may not alleviate his urinary symptoms. We discussed the small risk of developing scar tissue along the urethral channel and strictures. We also discussed the chance of the prostate could grow back and he may need further surgery or treatment in the future for prostate problems. Patient was taken back to the operating room, timeout procedure was performed, he was identified and marked and placed on the operating room table. He underwent general anesthesia. He was placed in dorsolithotomy position. Penis and testicles were prepped and draped in usual sterile fashion. Went into the bladder using the visual obturator with a resectoscope. Once inside the bladder identified the right and left ureteral orifice. I then identified the prostate and the anatomy of the prostate. I marked out the area of the sphincter and the verumontanum was identified. I then proceeded with the prostate resection first resected the median lobe. And then resected the right lobe of the prostate. Then to resect the left lobe of the prostate. I then resected the apical tissue of the prostate. This was a complete resection of all obstructive tissue to improve voiding and relieve obstruction. I then made sure that there was no injury to the sphincter or the verumontanum was still intact. At the end of the resection all the chips were Ellik out of the bladder. I then identified the left and right ureteral orifice and these were confirmed to be in good position and effluxing and not injured. The resectoscope was removed, a 22 Hong Konger catheter was placed into the bladder on continuous irrigation. And the urine was fairly light pink color and draining normally. He was taken back to the PACU in good condition. CPT 71213 Surgeon: Oswaldo Lakhani Type of Anesthesia: General Drains: 22 Hong Konger three-way catheter Admit VTE Documentation VTE Present on Admission: No VTE Mechan Device Prophylaxis: SCD's VTE Pharm Prophylaxis ordered?: No
[2024-05-25] MEDS: 0.9% Normal Saline (1000mL) 1,000 ML 50 ML IV (12:44)
--- NOTE | 2024-05-25 12:57 | PCM.POST.ANE ---
Anesthesia: Postop Eval I Current Vital Signs Temperature: 98 F Pulse Rate: 61 Blood Pressure: 117/44 Respiratory Rate: 14 Pulse Ox: 100 Oxygen Delivery Method: Room Air Assessment Airway patent: Yes Spontaneous unlabored respirations: Yes Mental status: Awake and Calm nausea: No Vomiting: No Anesthesia Complication: No Fluid Hydration Crystalloid volume administer (ml): 500 Total IV fluid infused: 500 Progress Note Anesthesia document: Postop Eval 1 completed: Yes
[2024-05-25] MEDS: Ketorolac 15 MG/ML Vial IV ×2 (15:31→23:21)
[2024-05-25] MEDS: Cefazolin 1 GM/50 ML BAG IV (18:53)
[2024-05-25] MEDS: Budesonide Respules 0.5 MG/2 ML AMPUL.NEB. INHALATION (19:42)
[2024-05-25] MEDS: Ipratropium/Albuterol Sulfate 3 ML AMPUL.NEB INHALATION (19:42)
[2024-05-25] MEDS: Atorvastatin Calcium 20 MG Tablet PO (21:55)
[2024-05-25] MEDS: guaiFENesin 1,200 MG Tablet 1200 MG PO (21:55)
[2024-05-26] MEDS: Cefazolin 1 GM/50 ML BAG IV (03:56)
[2024-05-26 03:59] VITALS: BP 128/55; PULSE 59; RESP 18; TEMP 37.1; O2SAT 99
[2024-05-26] MEDS: Ketorolac 15 MG/ML Vial IV ×2 (05:25→12:08)
[2024-05-26] MEDS: 0.9% Normal Saline (1000mL) 1,000 ML 50 ML IV (05:26)
[2024-05-26] MEDS: oxyCODONE 5 MG Tablet PO (06:50)
[2024-05-26] MEDS: Acetaminophen 325 MG Tablet PO (06:50)
[2024-05-26 07:11] VITALS: PULSE 60; RESP 16; O2SAT 99
[2024-05-26] MEDS: Ipratropium/Albuterol Sulfate 3 ML AMPUL.NEB INHALATION (07:11)
[2024-05-26] MEDS: Budesonide Respules 0.5 MG/2 ML AMPUL.NEB. INHALATION (07:11)
[2024-05-26 07:12] LABS: Hematocrit 27.6 % (40-54); Hemoglobin 8.7 g/dL (13.0-16.5); Mean Corp Hgb Conc 31.5 g/dL (32-36); Mean Corpuscular Hgb 30.1 pg (27.0-32.0); Mean Corpuscular Volume 95.5 fL (80-94); Mean Platelet Vol. 9.7 fl (6.2-12.0); Platelet Count 165 K/mm3 (150-450); RBC Distribution Width CV 14.1 % (11.6-14.6); RBC Distribution Width SD 49.5 fl (35.1-43.9); Red Blood Count 2.89 M/mm3 (4.6-6.2)
--- NOTE | 2024-05-26 07:29 | PCM.PN.GU ---
Subjective Subjective urine clear d/c [facility] today. Objective Data Objective Data Vital Signs: Vital Signs Temp Pulse Resp BP Pulse Ox O2 Del Method O2 Flow Rate 98.8 F 59 L 18 128/55 H 99 Nasal Cannula 3 05/26/24 03:59 05/26/24 03:59 05/26/24 03:59 05/26/24 03:59 05/26/24 03:59 05/26/24 03:59 05/26/24 03:59 Oxygen Flow Rate (L/min) 3 Oxygen Delivery Method Nasal Cannula Weight: 60.781 kg Body Mass Index (BMI) 19.8 Intake & Output: Intake and Output for Last 24 Hours 05/24/24 05/25/24 05/26/24 23:59 23:59 23:59 Intake Total 1792.5 / 1792.5 50 / 50 Output Total 1800 / 1800 200 / 200 Balance -7.5 / -7.5 -150 / -150 Lab / Micro Data 05/26/24 06:42 05/26/24 06:42 Labs: Laboratory Results - last 24 hr 05/26/24 06:42: WBC 5.0, RBC 2.89 L, Hgb 8.7 L, Hct 27.6 L, MCV 95.5 H, MCH 30.1, MCHC 31.5 L, RDW Std Deviation 49.5 H, RDW Coeff of Marques 14.1, Plt Count 165, MPV 9.7
[2024-05-26 07:31] LABS: Anion Gap 3 (5-15); BUN 11 mg/dL (7-18); Calcium,Total 8.5 mg/dL (8.5-10.1); Chloride 108 mmol/L (98-107); Creatinine, Serum 0.73 mg/dL (0.70-1.30); EST Glomerular Filtration Rate 109 mL/min (>60); Est Glom Filt Rate - Afr Amer 132 mL/min (>60); Glucose 82 mg/dL (74-106); Potassium 3.7 mmol/L (3.5-5.1); Sodium Level 139 mmol/L (136-145)
[2024-05-26 08:15] VITALS: PULSE 70
[2024-05-26] MEDS: Hydroxychloroquine 200 MG Tablet PO (08:19)
--- NOTE | 2024-05-26 10:15 | CASEMGMT ---
ALDO HERNANDEZ NOTE: ALDO CM to room. Introduced self and role. ORUTSARARMIUT. Introduced self and role. Pt w/recent LLE BKA ~ 5 wks ago. Pt lives w/, home has ramp entrance. He uses walker & WC @ home. He denies need for further DME. States he gets HHC but is not sure of name of agency. He wishes to return home w/[facility] w/HHC. He wears home O2 @ 3 l/m continuously from [facility]. He has concentrator and portability @ home and states can bring in portable O2 tank @ dc. He feels safe to discharge home and denies having further dc needs. Call placed to 's #. Dtr, Susanna, answered. She was made aware pt will be discharging home today. Brandon CARLSON, to call /dtr when pt has voided and medically ready for dc. Susanna state they can bring in pt's portable O2 tank for pt to go home on. She and are not sure what [facility] agency pt is currently active with, but states it was set up by Renard Salas and she thinks the agency is from out of [place]. massimo Weber election assistant, to look into finding [facility] agency pt is active with. Erasmo DIETZ RN, CM
[2024-05-26 10:36] VITALS: BP 135/61; PULSE 64; RESP 18; TEMP 36.9; O2SAT 100
[2024-05-26] MEDS: Lisinopril 5 MG Tablet PO (10:41)
[2024-05-26] MEDS: guaiFENesin 1,200 MG Tablet 1200 MG PO (10:41)
[2024-05-26] MEDS: Finasteride 5 MG Tablet PO (10:41)
--- NOTE | 2024-05-26 10:59 | CASEMGMT ---
Discharge Planning Resumption referral sent via [facility] to [facility]. Tia Silvester DC Planning Asst
[2024-05-26] MEDS: 0.9% Saline Lock 10 ML Syringe IV (12:09)
--- NOTE | 2024-05-26 12:48 | NURSING ---
Attempted to call [facility] 2 times and left a message both times.
[2024-05-26 13:12] VITALS: BP 147/74; PULSE 64; RESP 18; TEMP 37.1; O2SAT 100
== END 2024-05-26 13:37 | disposition home health service (06) ==
LOC: SDC 13:30 → MS3 13:30
PROVIDERS: Admitting Provider Urology; PCP Internal Medicine; Referring Provider Urology; Visit Provider Urology
PROC: (CPT 52601; principal; 2024-05-25 11:35)
DX: N40.1 Benign prostatic hyperplasia with lower urinary tract symptoms (principal); Z89.512 Acquired absence of left leg below knee; J96.11 Chronic respiratory failure with hypoxia; J43.9 Emphysema, unspecified; Z79.899 Other long term (current) drug therapy; Z79.51 Long term (current) use of inhaled steroids; E78.00 Pure hypercholesterolemia, unspecified; I10 Essential (primary) hypertension; N13.8 Other obstructive and reflux uropathy; Z79.82 Long term (current) use of aspirin; R33.8 Other retention of urine; Z79.02 Long term (current) use of antithrombotics/antiplatelets; Z99.81 Dependence on supplemental oxygen; Z87.891 Personal history of nicotine dependence
CPT/HCPCS: 52601; 00914; 36415; 80048; 85027; 88305; 94640; 96365; 96366; 96375; 96376; 97162; 97166; 99221; J7030; J7120; A4216; G0378; J2405